=== PATIENT | female | born 1975 | race American Indian/Alaskan Native ===

== ENCOUNTER → 2017-08-09 | Emergency (ER) | payer BC, OTHER ==
[~2017-08-09] VITALS: Ht 157.5 cm; Wt 70.3 kg
[~2017-08-09] MED LIST: AUGMENTIN 875-1 EACH PO; CLONIDINE HCL0.2 MG PO; CYCLOBENZAPRINE10 MG PO; IBUPROFEN600 MG PO; NORCO 5-325 TA1 EACH PO; ONDANSETRON ODT8 MG PO; ROBAXIN-750750 MG PO; TRAZODONE HCL100 MG PO; TYLENOL WITH C1 EACH PO; ZOLOFT100 MG PO
== END ==
LOC: ED 17:58
DX: R51 Headache (principal); Z79.899 Other long term (current) drug therapy; Z88.1 Allergy status to other antibiotic agents; Z88.8 Allergy status to other drugs, medicaments and biological substances
CPT/HCPCS: 96361; 96374; 96375; 99283; J1200; J2765; J7030

== ENCOUNTER 2019-05-08 16:38 | Emergency (ER) | payer BC, OTHER ==
[~2019-05-08] VITALS: Ht 157.5 cm; Wt 70.3 kg
--- OUTSIDE RECORDS SUMMARY | 2019-05-08 16:42 | XMS ---
PreManage Notification: ZANE ROBB Security Telephone Lineman Events No recent Security Events currently on file CRITERIA MET - GWEND[facility] CARE PROVIDERS ZANE GIL Obstetrics \T\ Gynecology Current PHONE: Unknown DR DIMAS LESTER Primary Care Current PHONE: [phone] ZANE GIL Primary Care 09/19/2015-Current PHONE: [phone] Michelle has no Care Guidelines for this patient. E.D. VISIT COUNT (12 MO.) 1 DREW Barboza TOTAL 1 NOTE: Visits indicate total known visits. ED/UCC VISIT TRACKING (12 MO.) 05/08/2019 16:39 DREW L[facility]pez [place] TYPE: Emergency COMPLAINT: - HEADACHE, SINUS PAIN INPATIENT VISIT TRACKING (12 MO.) No inpatient visits to display in this time frame [email or web address]
[2019-05-08] MEDS ORDERED: ZOFRAN4 MG PO (17:16)
[2019-05-08] MEDS ORDERED: IMITREX50 MG PO (17:16)
[2019-05-08] MEDS ORDERED: AUGMENTIN 875-1 EACH PO (17:16)
[2019-05-08] MEDS ORDERED: ULTRAM50 MG PO (17:16)
== END 2019-05-08 18:10 | disposition home or self-care (01) ==
LOC: ED 16:38
DX: G43.909 Migraine, unspecified, not intractable, without status migrainosus (principal); F41.9 Anxiety disorder, unspecified; Z88.1 Allergy status to other antibiotic agents; Z88.6 Allergy status to analgesic agent
CPT/HCPCS: 99283

== ENCOUNTER 2020-04-18 19:36 | Emergency (ER) | payer BC, OTHER ==
[~2020-04-18] VITALS: Ht 157.5 cm; Wt 70.3 kg
--- OUTSIDE RECORDS SUMMARY | ~2020-04-18 | XMS | Encounter Summary ---
Demographics + + + | Address | [address] | | | [place] [address] | + + + | Home Phone | | + + + | Preferred Language | Unknown | + + + | Marital Status | | + + + | Yarsani Affiliation | 1041 | + + + | Race | Unknown | + + + | Ethnic Group | Unknown | + + + Author + + + | Author | [facility] | | | and [place] | + + + | Organization | [facility] | | | and [place] | + + + | Address | Unknown | + + + | Phone | Unavailable | + + + Support + + + + + | Name | Relationship | Address | Phone | + + + + + | Tai Darling | ECON | [address] | | | | | [place] | | | | | [address] | | + + + + + Care Team Providers + +------+ + | Care Rigging Engineer Name | Role | Phone | + +------+ + | Wayne Cunha DO | PCP | | + +------+ + Reason for Referral Evaluate & Treat (Routine) +--------+ + + + + + | Status | Reason | Specialty | Diagnoses / | Referred By | Referred To | | | | | Procedures | Contact | Contact | +--------+ + + + + + | Closed | Specialty | Orthopedic | Diagnoses | Delmer | Ant Srinivasan | | | Services | Surgery | Bilateral | Joshua Magaña MD | Orthopedic | | | Required | | carpal | [address] | | | | | tunnel | [address] | [address] | | | | | syndrome | [place], | [place], | | | | | Procedures | [place] [address] | [place] [address] | | | | | 05/24>PEND | Phone: | Phone: | | | | | [facility] AUTH | [phone] | [phone] | | | | | | Fax: | Fax: | | | | | | [phone] | [phone] | +--------+ + + + + + Reason for Visit + + + | Reason | Comments | + + + | Procedure | BUE NCS/EMG | + + + Evaluate & Treat (Routine) +--------+ + + + + + | Status | Reason | Specialty | Diagnoses / | Referred By | Referred To | | | | | Procedures | Contact | Contact | +--------+ + + + + + | Closed | Specialty | Physical | Diagnoses | Dowell, | Joshua Dowell | | | Services | Medicine and | Bilateral | Joshua Magaña MD | Josiane Magaña MD [address] | | | Required | Rehabilitatio | hand | [address] | | | | n | numbness | [address] | [place], | | | | | Pain in both | [place], | [place] [address] | | | | | forearms | [place] [address] | Phone: | | | | | Weakness of | Phone: | [phone] | | | | | both hands | [phone] | Fax: | | | | | Cervicalgia | Fax: | [phone] | | | | | Procedures | [phone] | | | | | | 05/02> | | | | | | | PENDING | | | | | | | [place] | | | | | | | DOS 05/03/18 | | | +--------+ + + + + + Encounter Details +--------+ + + + + | Date | Type | Department | Care Team | Description | +--------+ + + + + | 05/03/ | Procedure | [facility] | Joshua Dowell, | Bilateral carpal | | 2017 | visit | PHYSIATRY [address] | MD [address] | tunnel syndrome | | | | [address] | [place] | (Primary Dx); | | | | [place], [place] | [address] | Bilateral hand | | | | [address] | | numbness; Weakness | | | | [phone] | | of both hands; | | | | | | Cervicalgia | +--------+ + + + + Social History + +-------+ +--------+------+ | Tobacco Use | Types | Packs/Day | Years | Date | | | | | Used | | + +-------+ +--------+------+ | Never Assessed | | | | | + +-------+ +--------+------+ + + + | Sex Assigned at | Date Recorded | | | | + + + | Not on file | | + + + documented as of this encounter Last Filed Vital Signs + + + + + | Vital Sign | Reading | Time Taken | Comments | + + + + + | Blood Pressure | 112/67 | 05/03/2018 2:30 PM | | | | | PDT | | + + + + + | Pulse | 78 | 05/03/2018 2:30 PM | | | | | PDT | | + + + + + | Temperature | - | - | | + + + + + | Respiratory Rate | - | - | | + + + + + | Oxygen Saturation | - | - | | + + + + + | Inhaled Oxygen | - | - | | | Concentration | | | | + + + + + | Weight | 77.6 kg (171 lb) | 05/03/2018 2:30 PM | | | | | PDT | | + + + + + | Height | 157.5 cm (5' 2") | 05/03/2018 2:30 PM | | | | | PDT | | + + + + + | Body Mass Index | 31.28 | 05/03/2018 2:30 PM | | | | | PDT | | + + + + + documented in this encounter Patient Instructions Patient Instructions Joshua Dowell MD - 05/03/2018 2:30 PM PDTPurchase and wear carpal tunnel wrist splints. Wear them at night, only at night, every night, never during the day. Wear them until you are able to have surgical treatment. Laboratory tests have been requested. Please go to the lab to complete your laboratory gail ting. You will need to be fasting for 12 hours prior to lab testing. You will need to stay at the lab for 2 hours to complete your lab testing. Your lab results will be reviewed by phone. If you haven't heard your results within 2 weeks of completing the test, please call the office and let us know. Sequential carpal tunnel release surgery is recommended. Orthopedic surgery consult has be en requested. If you haven't heard from the surgeon's office within 2 weeks, please call e clinic and let us know. If you have persisting symptoms after you have recovered from carpal tunnel surgeries, plea se return to the clinic for further evaluation.Electronically signed by MD abhay Becerra 05/03/2018 3:43 PM PDT documented in this encounter Progress Notes Joshua Dowell MD - 05/03/2018 2:30 PM PDTFormatting of this note might be different fro m the original. [facility] Physical Medicine & Rehabilitation [address] [place] [address], [address] [place] [address] Test Date: 05/03/2018 Patient Name: Mary Jo Darling : 1975 Physician: Joshua Dowell MD (.) MR #: [id number] Sex: Female Referring Physician: Wayne Cunha DO HISTORY: Mary Jo Darling returns to the clinic for previously schedule bilateral upper extremity n erve conduction study and EMG. She has neck pain. She previously reported that symptoms we re worse on the left, but today she reports that her symptoms are worse on the right. She h as bilateral hand numbness and weakness that started around one year ago. She reports weak ness in both upper extremities which she describes as loss of exploration engineer strength. She reports bi lateral hand numbness that occurs at least daily but sometimes more than once daily. She re ports that hand numbness can occur at night and wake her from sleep. She reports that hand numbness can occur with activities that involve gripping with the hands. She denies a histo ry of diabetes. She denies having a pacemaker. She denies taking blood thinning medication s. PHYSICAL EXAM: Generally she is in no acute distress. She is alert and oriented. She has normal speech. Her cranial nerves are intact. Her gait is normal. She has normal coordination in all fou r extremities. She has 4/5 hand exploration engineer bilaterally. She has 5/5 biceps, triceps, wrist dorsi flexion, and finger abduction bilaterally. She has 2+ reflexes over the biceps, triceps and brachioradialis bilaterally. Tinel's test is positive over the median nerves at both wrist s. Phalen's test is positive bilaterally. Spurling's test is positive bilaterally. There is no focal muscle atrophy in either upper extremity. She has subjective sensory changes of the median distribution of both hands. Nerve Conduction Studies Anti Sensory Summary Table Site NR Peak (ms) Norm Peak (ms) O-P Amp (V) Norm O-P Amp Site1 Site2 Delta-0 (ms) Dist (cm) Kevin (m/s) Norm Kevin (m/s) Left Median Anti Sensory (2nd Digit) Wrist 3.7 <3.6 49.3 >10 Wrist 2nd Digit 3.0 14.0 47 >39 Axilla 7.3 14.5 Right Median Anti Sensory (2nd Digit) Wrist 3.5 <3.6 47.3 >10 Wrist 2nd Digit 2.9 14.0 48 >39 Elbow 7.0 14.6 Elbow Wrist 3.3 22.5 68 >48 Left Radial Anti Sensory (Base 1st Digit) Wrist 2.4 <2.7 40.8 Wrist Base 1st Digit 1.8 10.0 56 Right Radial Anti Sensory (Base 1st Digit) Wrist 2.5 <2.7 34.7 Wrist Base 1st Digit 2.0 10.0 50 Motor Summary Table Site NR Onset (ms) Norm Onset (ms) O-P Amp (mV) Norm O-P Amp Site1 Site2 Delta-0 (ms) Dist (cm) Kevin (m/s) Norm Kevin (m/s) Left Median Motor (Abd Poll Brev) Wrist 4.3 <4.2 10.2 >5 Elbow Wrist 3.5 19.5 56 >50 Elbow 7.8 9.4 Axilla Elbow 1.5 8.7 58 Axilla 9.3 9.2 Right Median Motor (Abd Poll Brev) Wrist 4.3 <4.2 7.0 >5 Elbow Wrist 3.6 19.0 53 >50 Elbow 7.9 5.4 Axilla Elbow 1.3 7.1 55 Axilla 9.2 5.7 Left Ulnar Motor (Abd Dig Minimi) Wrist 2.9 <4.2 10.8 >3 B Elbow Wrist 2.8 16.1 57 >53 B Elbow 5.7 9.8 A Elbow B Elbow 1.8 10.0 56 >53 A Elbow 7.5 10.3 Comparison Summary Table Site NR Peak (ms) Norm Peak (ms) P-T Amp (V) Site1 Site2 Delta-P (ms) Norm Delta (ms) Left Median/Radial Dig I Comparison (Digit 1 - 10cm) Median 3.0 <2.9 61.1 Median Radial 0.5 <0.4 Radial 2.5 <2.8 14.1 Right Median/Radial Dig I Comparison (Digit 1 - 10cm) Median 3.0 <2.9 54.5 Median Radial 0.6 <0.4 Radial 2.4 <2.8 12.9 Left Median/Ulnar Dig IV Comparison (Digit 4 - 14cm) Median Wr 4.0 <3.3 22.1 Median Wr Ulnar Wr 0.7 <0.4 Ulnar Wr 3.3 <3.3 21.4 Right Median/Ulnar Dig IV Comparison (Digit 4 - 14cm) Median Wr 3.8 <3.3 42.1 Median Wr Ulnar Wr 0.9 <0.4 Ulnar Wr 2.9 <3.3 21.8 Left Median/Ulnar Palm Comparison (Wrist - 8cm) Median Palm 2.6 <2.5 37.8 Median Palm Ulnar Palm 0.6 <0.3 Ulnar Palm 2.0 <2.5 18.1 Right Median/Ulnar Palm Comparison (Wrist - 8cm) Median Palm 2.7 <2.5 50.2 Median Palm Ulnar Palm 0.7 <0.3 Ulnar Palm 2.0 <2.5 23.0 F Wave Studies NR F-Lat (ms) Lat Norm (ms) L-R F-Lat (ms) L-R Lat Norm Left Median (Mrkrs) (Abd Poll Brev) 26.60 <33 0.94 <2.2 Right Median (Mrkrs) (Abd Poll Brev) 27.54 <33 0.94 <2.2 Left Ulnar (Mrkrs) (Abd Dig Min) 25.84 <36 <2.5 EMG Side Muscle Nerve Root Ins Act Fibs Psw Amp Dur Poly Recrt Int Pat Comment Right Deltoid Axillary C5-6 Nml Nml Nml Nml Nml Nml Nml Nml Right Biceps Musculocut C5-6 Nml Nml Nml Nml Nml Nml Nml Nml Right Triceps Radial C6-7-8 Nml Nml Nml Nml Nml Nml Nml Nml Right Anconeus Radial C7-8 Nml Nml Nml Nml Nml Nml Nml Nml Right PronatorTeres Median C6-7 Nml Nml Nml Nml Nml Nml Nml Nml Right 1stDorInt Ulnar C8-T1 Nml Nml Nml Nml Nml Nml Nml Nml Right Abd Poll Brev Median C8-T1 Nml Nml Nml Nml Nml Nml Nml Nml Left Deltoid Axillary C5-6 Nml Nml Nml Nml Nml Nml Nml Nml Left Biceps Musculocut C5-6 Nml Nml Nml Nml Nml Nml Nml Nml Left Triceps Radial C6-7-8 Nml Nml Nml Nml Nml Nml Nml Nml Left Anconeus Radial C7-8 Nml Nml Nml Nml Nml Nml Nml Nml Left PronatorTeres Median C6-7 Nml Nml Nml Nml Nml Nml Nml Nml Left 1stDorInt Ulnar C8-T1 Nml Nml Nml Nml Nml Nml Nml Nml Left Abd Poll Brev Median C8-T1 Nml Nml Nml Nml Nml Nml Nml Nml Nerve Conduction Studies Motor Left/Right Comparison Site L Lat (ms) R Lat (ms) L-R Lat (ms) L Amp (mV) R Amp (mV) L-R Amp (%) Site1 Site2 L Ve l (m/s) R Kevin (m/s) L-R Kevin (m/s) Median Motor (Abd Poll Brev) Wrist 4.3 4.3 0.0 10.2 7.0 31.4 Elbow Wrist 56 53 3 Elbow 7.8 7.9 0.1 9.4 5.4 42.6 Axilla Elbow 58 55 3 Axilla 9.3 9.2 0.1 9.2 5.7 38.0 Ulnar Motor (Abd Dig Minimi) Wrist 2.9 10.8 B Elbow Wrist 57 B Elbow 5.7 9.8 A Elbow B Elbow 56 A Elbow 7.5 10.3 Anti Sensory Left/Right Comparison Site L Lat (ms) R Lat (ms) L-R Lat (ms) L Amp (V) R Amp (V) L-R Amp (%) Site1 Site2 L Kevin (m/s) R Kevin (m/s) L-R Kevin (m/s) Median Anti Sensory (2nd Digit) Wrist 3.7 3.5 0.2 49.3 47.3 4.1 Wrist 2nd Digit 47 48 1 Axilla 7.3 14.5 Radial Anti Sensory (Base 1st Digit) Wrist 2.4 2.5 0.1 40.8 34.7 15.0 Wrist Base 1st Digit 56 50 6 Comparison Left/Right Comparison Site L Lat (ms) R Lat (ms) L-R Lat (ms) L Amp (V) R Amp (V) L-R Amp (%) Median/Radial Dig I Comparison (Digit 1 - 10cm) Median 3.0 3.0 0.0 61.1 54.5 10.8 Radial 2.5 2.4 0.1 14.1 12.9 8.5 Median/Ulnar Dig IV Comparison (Digit 4 - 14cm) Median Wr 4.0 3.8 0.2 22.1 42.1 47.5 Ulnar Wr 3.3 2.9 0.4 21.4 21.8 1.8 Median/Ulnar Palm Comparison (Wrist - 8cm) Median Palm 2.6 2.7 0.1 37.8 50.2 24.7 Ulnar Palm 2.0 2.0 0.0 18.1 23.0 21.3 NCV FINDINGS: Evaluation of the Left median motor and the Right median motor nerves showed prolonged distal onset latency. The Left median sensory nerve showed prolonged distal peak latency. The Left median/radial (dig I) comparison and the Right median/radial (dig I) comp arison nerves showed prolonged distal peak latency (Median) and abnormal peak latency differ ence (Median-Radial). The Left median/ulnar (dig IV) comparison and the Right median/ulnar (dig IV) comparison nerves showed prolonged distal peak latency (Median Wr) and abnormal pea k latency difference (Median Wr-Ulnar Wr). The Left median/ulnar (palm) comparison and the Right median/ulnar (palm) comparison nerves showed prolonged distal peak latency (Median Pal m) and abnormal peak latency difference (Median Palm-Ulnar Palm). All remaining nerves (as indicated in the following tables) were within normal limits. All F Wave latencies were within normal limits. EMG FINDINGS: All examined muscles (as indicated in the following table) showed no evidence of electrical instability. IMPRESSION: This is an abnormal study. Nerve conduction study of the right upper extremity is abnormal. Nerve conduction study of the right upper extremity demonstrates moderate median neuropathy at the right wrist consis tent with carpal tunnel syndrome. There is no evidence of radial neuropathy in the right up per extremity. Limited study does not reveal any evidence of ulnar neuropathy in the right upper extremity. Nerve conduction study of the left upper extremity is abnormal. Nerve conduction study of the left upper extremity demonstrates moderate median neuropathy at the left wrist consisten t with carpal tunnel syndrome. There is no evidence of radial neuropathy in the left upper e xtremity. There is no evidence of ulnar neuropathy in the left upper extremity. Needle EMG of both upper extremities was normal. There is no evidence of cervical radiculo jay in either upper extremity. Please note that absence of evidence is not proof of absence. Cervical radiculopathy may s till be present despite normal EMG study. Please note that nerve conduction study and EMG c annot diagnose nor rule out the presence of cervical spinals stenosis. DISCUSSION: Mary Jo Darling demonstrated normal tolerance to nerve conduction study and EMG. She was able to complete the entire exam. As noted above, this study demonstrates moderate median neuropathy at both wrists consisten t with bilateral carpal tunnel syndrome. Numerically the carpal tunnel syndrome may be slig htly worse on the right compared to the left. Mary Jo Darling was recommended to wear carpal tunnel wrist splints at night, only night, every night, never during the day. She was instructed how to make sure the splints fit pro perly and are not too tight. We discussed that splints will not correct her problem, but ma y offer some improvement and may slow the natural progression of carpal tunnel syndrome. Sequential bilateral carpal tunnel release is recommended. Orthopedic surgery consult has been requested to consider carpal tunnel release surgery. Today we reviewed the natural progression of carpal tunnel syndrome. We discussed the risk of permanent nerve damage if carpal tunnel syndrome is left untreated. We discussed the ri sk of permanent pain, numbness, weakness and disability that can occur if carpal tunnel prog ressive to severe. Today we reviewed the association between carpal tunnel syndrome and diabetes. 2 hour gluc ose tolerance test has been requested. The results will be reviewed by her with phone. There was no evidence of cervical pathology on today's study. She was advised that if she has persisting symptoms after treating carpal tunnel syndrome, she should return to the clin ic for further evaluation. Thank you for allowing me to be involved in the care of your patient. If you have any ques tions regarding the care of your patient please don't hesitate to call. Approximately 25 minutes was spent face to face with Mary Jo Darling, over half of which was spent formulating and discussing their medical treatment plan. Joshua Dowell MD (Jr.) Physical Medicine and Rehabilitation Cc: Wayne Cunha DO documented in this en counter Plan of Treatment + +------+--------+ + + | Name | Type | Priori | Associated Diagnoses | Order Schedule | | | | ty | | | + +------+--------+ + + | Glucose Tolerance | Lab | Routin | Bilateral carpal | 1 Occurrences | | Test, 2Hr | | e | tunnel syndrome | starting 05/03/2018 | | | | | | until 05/03/2019 | + +------+--------+ + + + + +--------+ + + | Name | Type | Priori | Associated Diagnoses | Order Schedule | | | | ty | | | + + +--------+ + + | * [facility] | Outpatient | Routin | Bilateral carpal | Ordered: 05/03/2018 | | Orthopedic Surgery - | Referral | e | tunnel syndrome | | | AMB Referral | | | | | + + +--------+ + + documented as of this encounter Visit Diagnoses + + | Diagnosis | + + | Bilateral carpal tunnel syndrome - Primary Carpal tunnel syndrome | + + | Bilateral hand numbness Disturbance of skin sensation | + + | Weakness of both hands | + + | Cervicalgia | + + documented in this encounter
--- OUTSIDE RECORDS SUMMARY | ~2020-04-18 | XMS | Encounter Summary ---
Demographics + + + | Address | [address] | | | [place] [address] | + + + | Home Phone | | + + + | Preferred Language | Unknown | + + + | Marital Status | | + + + | Orthodox Affiliation | 1041 | + + + | Race | Unknown | + + + | Ethnic Group | Unknown | + + + Author + + + | Author | [facility] | | | and [place] | + + + | Organization | [facility] | | | and [place] | + + + | Address | Unknown | + + + | Phone | Unavailable | + + + Support + + + + + | Name | Relationship | Address | Phone | + + + + + | Tai Darling | ECON | [address] | | | | | [place] | | | | | [address] | | + + + + + Care Team Providers + +------+ + | Care Sewing Machinist Name | Role | Phone | + +------+ + | Latricia Pal | PCP | | + +------+ + Reason for Visit +--------+--------+ + | Reason | Onset | Comments | | | Date | | +--------+--------+ + | Other | 09/24/ | | | | 2020 | | +--------+--------+ + Encounter Details +--------+ + + + + | Date | Type | Department | Care Team | Description | +--------+ + + + + | 09/24/ | Telephone | [facility] | Jose Alejandro Raymundo | Other | | 2020 | | ORTHOPEDIC SURGERY | MD [address] | | | | | [address] | [address] [facility] | | | | | [place] | [place] [address] | | | | | [address] | [phone] | | | | | [phone] | | | +--------+ + + + + Social History + +-------+ +--------+------+ | Tobacco Use | Types | Packs/Day | Years | Date | | | | | Used | | + +-------+ +--------+------+ | Never Smoker | | | | | + +-------+ +--------+------+ + +---+---+---+ | Smokeless Tobacco: | | | | | Never Used | | | | + +---+---+---+ + + + | Sex Assigned at | Date Recorded | | | | + + + | Not on file | | + + + documented as of this encounter Miscellaneous Notes Telephone Encounter - Anu Christianson I U.[place]. Representative - 09/25/2019 10:16 AM PSTCorrec fredi letter has been faxed to [phone] ATTRosy [place]. I have placed the letter up front fo r patient to steel pickler for her records at the time of her Pre-Op visit. elephone Encounter - Anu Mackenzie I U.[place]. Representative - 09/24/2019 3:54 PM PSTPlease correct. Thanks! Nicki sow signed by Yashira Ivan Assistant at 09/24/2019 3:55 PM PSTTelephone Lizzie Jamison - 09/24/2019 2:29 PM PSTPatient called and needs a corrected note . Note received stated that she is having her pre op appt. 09/24/18. Her schedule appt is 0 09/26/2019. If you could correct this and fax to [phone] that would be appreciated.Max tronically signed by Lizzie Winters at 09/24/2019 2:32 PM PSTdocumented in this encounter Plan of Treatment Not on filedocumented as of this encounter Visit Diagnoses Not on filedocumented in this encounter"
--- OUTSIDE RECORDS SUMMARY | ~2020-04-18 | XMS | Encounter Summary ---
Demographics + + + | Address | [address] | | | [place] [address] | + + + | Home Phone | | + + + | Preferred Language | Unknown | + + + | Marital Status | | + + + | Sikhism Affiliation | 1041 | + + + | Race | Unknown | + + + | Ethnic Group | Unknown | + + + Author + + + | Author | [facility] | | | and [place] | + + + | Organization | [facility] | | | and [place] | + + + | Address | Unknown | + + + | Phone | Unavailable | + + + Support + + + + + | Name | Relationship | Address | Phone | + + + + + | Tai Darling | ECON | [address] | | | | | [place] | | | | | [address] | | + + + + + Care Team Providers + +------+ + | Care Blackjack Supervisor Name | Role | Phone | + +------+ + | Wayne Cunha DO | PCP | | + +------+ + Encounter Details +--------+ + + + + | Date | Type | Department | Care Team | Description | +--------+ + + + + | 05/18/ | Orders Only | [facility] | Jose [facility]andro [facility] | Bilateral carpal | | 2018 | | ORTHOPEDIC SURGERY | MD [address] | tunnel syndrome | | | | [address] | [address] | (Primary Dx) | | | | [place] | [place] [address] | | | | | [address] | [phone] | | | | | [phone] | | | +--------+ + + + [...] + + documented as of this encounter Plan of Treatment Not on filedocumented as of this encounter Visit Diagnoses + + | Diagnosis | + + | Bilateral carpal tunnel syndrome - Primary Carpal tunnel syndrome | + + documented in this encounter"
--- OUTSIDE RECORDS SUMMARY | ~2020-04-18 | XMS | Encounter Summary ---
Demographics + + + | Address | [address] | | | [place] [address] | + + + | Home Phone | | + + + | Preferred Language | Unknown | + + + | Marital Status | | + + + | Zoroastrianism Affiliation | 1041 | + + + | Race | Unknown | + + + | Ethnic Group | Unknown | + + + Author + + + | Author | [facility] | | | and [place] | + + + | Organization | [facility] | | | and [place] | + + + | Address | Unknown | + + + | Phone | Unavailable | + + + Support + + + + + | Name | Relationship | Address | Phone | + + + + + | Tai Darling | ECON | [address] | | | | | [place] | | | | | [address] | | + + + + + Care Team Providers + +------+ + | Care Chha Name | Role | Phone | + +------+ + | Wayne Cunha DO | PCP | | + +------+ + Encounter Details +--------+ + + + + | Date | Type | Department | Care Team | Description | +--------+ + + + + | 02/16/ | Abstract | [facility] | Joshua Dowell, | | | 2018 | | PHYSIATRY [address] | MD [address] | | | | | [address] | [place], [place] | | | | | [place], [place] | [address] | | | | | [address] | | | | | | [phone] | | | +--------+ + + + [...]
--- OUTSIDE RECORDS SUMMARY | ~2020-04-18 | XMS | Encounter Summary ---
Demographics + + + | Address | [address] | | | [place] [address] | + + + | Home Phone | | + + + | Preferred Language | Unknown | + + + | Marital Status | | + + + | Scientologist Affiliation | 1041 | + + + | Race | Unknown | + + + | Ethnic Group | Unknown | + + + Author + + + | Author | [facility] | | | and [place] | + + + | Organization | [facility] | | | and [place] | + + + | Address | Unknown | + + + | Phone | Unavailable | + + + Support + + + + + | Name | Relationship | Address | Phone | + + + + + | Tai Darling | ECON | [address] | | | | | [place] | | | | | [address] | | + + + + + Care Team Providers + +------+ + | Care [employer] Name | Role | Phone | + +------+ + | Wayne Cunha PCP | | + +------+ + Reason for Visit +---------+ + | Reason | Comments | +---------+ + | Post Op | RIGHT CARPAL TUNNEL RELEASE DOS 07/11/2018 | +---------+ + Encounter Details +--------+---------+ + + + | Date | Type | Department | Care Team | Description | +--------+---------+ + + + | 07/25/ | Office | [facility] | Jose Alejandro Raymundo | s/p right open | | 2018 | Visit | ORTHOPEDIC SURGERY | MD [address] | carpal tunnel | | | | [address] | [address] | release DOS 07/11/18 | | | | [address] | [place] [address] | (Primary Dx) | | | | [address] | [phone] | | | | | [phone] | | | +--------+---------+ + + + Social History + +-------+ [...] + + + | Blood Pressure | - | - | | + + + + + | Pulse | - | - | | + [...] + + + + | Weight | 79.4 kg (175 lb 0.7 | 07/25/2018 10:51 AM | | | | oz) | PST | | + + + + + | Height | 157.5 cm (5' 2") | 07/25/2018 10:51 AM | | | | | PST | | + + + + + | Body Mass Index | 32.02 | 07/25/2018 10:51 AM | | | | | PST | | + + + + + documented in this encounter Patient Instructions Patient Instructions Jose Alejandro Raymundo MD - 07/25/2018 11:00 AM PST Carpal Tunnel Syndrome Carpal tunnel syndrome is a painful condition of the wrist and arm. It is caused by pressur e on the median nerve. The median nerve is one of the nerves that give feeling and movement to the hand. It passes through a tunnel in the wrist called the carpal tunnel. This tunnel is made up of bones and ligaments. Narrowing of this tunnel or swelling of the tissues inside the tunnel puts press ure on the median nerve. This causes numbness, pins and needles, or electric shooting pains in your hand and forearm. Often the pain is worse at night and may wake you when you are asl eep. Carpal tunnel syndrome may occur during and with use of control pills. It i s more common in workers who must often bend their wrists. It is also common in people who w ork with power tools that cause strong vibrations. Home care Rest the painful wrist. Avoid repeated bending of the wrist back and forth. This puts pr essure on the median nerve. Avoid using power tools with strong vibrations. If you were given a splint, wear it at night while you sleep. You may also wear it durin g the day for comfort. Move your fingers and wrists often to avoid stiffness. Elevate your arms on pillows when you lie down. Try using the unaffected hand more. Try not to hold your wrists in a bent, downward position. Sometimes changes in the work place may ease symptoms. If you type most of the day, it m ay help to change the position of your keyboard or add a wrist support. Your wrist should be in a neutral position and not bent back when typing. You may nrpyydq-suc-wjlldag pain medicine to treat pain and inflammation, unless anoth er medicine was prescribed.Anti-inflammatory pain medicines, such as ibuprofen or naproxen may be more effective than acetaminophen, which treats pain, but not inflammation.If you have chronic liver or kidney disease or ever had a stomach ulcer or GI bleeding, talk with y our doctor before using these medicines. Opioid pain medicine will only give temporary relief and does not treat the problem. If pain continues, you may need a shot of a steroid drug into your wrist. If the above methods fail, you may need surgery. This will open the carpal tunnel and re lease the pressure on the trapped nerve. Follow-up care Follow up with your healthcare provider, oras advised, if the pain doesn t begin to imp rove within the next week. If X-rays were taken,you will be notified of any new findings that may affect your care. When to seek medical advice Call your healthcare provider right away if any of these occur: Pain not improving with the above treatment Fingers or hand become cold, blue, numb, or tingly Your whole arm becomes swollen or weak Date Last Reviewed: 08/11/201519995764-5180 [employer]. [address] [place] [id number]. All righ ts reserved. This information is not intended as a substitute for professional medical care. Always follow your healthcare professional's instructions. documented in this encounter Progress Notes Jose Alejandro Raymundo MD - 07/25/2018 11:00 AM PSTFormatting of this note might be different fro m the original. [facility] POST-OPERATIVE VISIT Pt. Name/Age/: Mary Jo Darling 42 y.o. 1975 Primary Care Physician: Wayne Cunha 1. s/p right open carpal tunnel release DOS 07/11/18 Chief Complaint/Reason for Visit: Post Op (RIGHT CARPAL TUNNEL RELEASE DOS 07/11/2018) History of Present Illness: The patient is a pleasant 42 y.o. female who presents for a post-operative visit. Since the surgery, the patient has been doing well. She has not been using her right hand. She want s to get back to work. Physical Examination: Ht 1.575 m (5' 2") | Wt 79.4 kg (175 lb 0.7 oz) | BMI 32.02 kg/m General: Alert, oriented, no acute distress HEENT: Normocephalic, atraumatic Cardiovascular: Regular rate and rhythm Respiratory: Breathing normally at a regular rate Ortho Exam Right upper extremity: Radial pulse 2+. Sensation intact to light touch in the first dorsal webspace, and the pads of the small and index fingers. Able to flex and extend the thumb at the interphalangeal joe int, make an "ok" sign, adduct and abduct the fingers, and oppose the thumb to the small fin jorge. Incision is clean, dry, and intact. Diagnostic Studies: Imaging None Labs- No results found for: NA, K, CL, CO2, ANIONGAP, GLU, BUN, CREA, GFRNONAA, CALCIUM, ALBUMIN, BILITOT, TOTALPROTEIN, AST, ALT, ALKPHOS, WBC, HGB, HCT, MCV, LABPLAT, PLT, ESR, CRP, LIPAS E, AMYLASE, PT, INR Assessment and Plan: 1. s/p right open carpal tunnel release DOS 07/11/18 The patient is a pleasant 42 y.o. female who presents for a post-operative visit after the above surgery. At this point, I did is reasonable for her to return back to work. She needs to do this with a 2 pound lifting restriction. She may type as tolerated. I encouraged he r to not soak the wound for another few days. She'll wash her hands to clean it. I'll see her back in 4 weeks. She would like to do the left side after the first of the year. She d oes not have constant numbness and tingling.. Follow-up: 4 weeks with no x-ray Portions of this report were transcribed using voice recognition software. Every effort wa s made to ensure accuracy; however, inadvertent computerized steel plate printer errors may be pre sent. I appreciate the opportunity to help with the management of this patient. Jose Alejandro Raymundo MD documented in this en counter Plan of Treatment Not on filedocumented as of this encounter Visit Diagnoses + + | Diagnosis | + + | s/p right open carpal tunnel release DOS 07/11/18 - Primary Carpal tunnel syndrome | + + documented in this encounter
--- OUTSIDE RECORDS SUMMARY | ~2020-04-18 | XMS | Encounter Summary ---
Demographics + + + | Address | [address] | | | [place] [address] | + + + | Home Phone | | + + + | Preferred Language | Unknown | + + + | Marital Status | | + + + | Mormonism Affiliation | [id number] | + + + | Race | Unknown | + + + | Ethnic Group | Unknown | + + + Author + + + | Author | and [facility] | | | and [place] | + + + | Organization | and [facility] | | | and [place] | + + + | Address | Unknown | + + + | Phone | Unavailable | + + + Support + + + + + | Name | Relationship | Address | Phone | + + + + + | Tai Robb | ECON | [address] | | | | | [place] | | | | | [address] | | + + + + + Care Team Providers + +------+ + | Care Senior Talent Management Consultant Name | Role | Phone | + +------+ + | Latricia Pal | PCP | | + +------+ + Reason for Visit Auth/Cert +--------+--------+ + + + + | Status | Reason | Specialty | Diagnoses / | Referred By | Referred To | | | | | Procedures | Contact | Contact | +--------+--------+ + + + + | | | | Diagnoses | | Breanne | | | | | Sindi justice | | Jose Alejandro | | | | | tunnel | | MD Brendan | | | | | syndrome | | [address] | | | | | Procedures | | [address] | | | | | [place] | | [place] | | | | | [place] | | [address] | | | | | N/CARPAL | | Phone: | | | | | TUNNEL SURG | | [phone] | | | | | Left carpal | | Fax: | | | | | tunnel | | [phone] | | | | | release | | | +--------+--------+ + + + + Encounter Details +--------+ + + + + | Date | Type | Department | Care Team | Description | +--------+ + + + + | 10/03/ | Hospital | [facility] | Jose Alejandro Raymundo | Left carpal tunnel | | 2020 | Encounter | [facility] | MD Brendan [address] | syndrome | | | | [address] | [address] [facility] | | | | | [place] | [place] [id number] | | | | | [id number] | [phone] | | | | | | | | +--------+ + + + [...] | | | + +---+---+---+ + + +---------+ + | Alcohol Use | Drinks/Week | oz/Week | Comments | + + +---------+ + | Not Currently | | | | + + +---------+ + + + + | Sex Assigned at | Date Recorded | | | | + + + | Not on file | | + + + documented as of this encounter Last Filed Vital Signs + + + + + | Vital Sign | Reading | Time Taken | Comments | + + + + + | Blood Pressure | 105/61 | 10/03/2019 1:45 PM | | | | | PST | | + + + + + | Pulse | 77 | 10/03/2019 1:45 PM | | | | | PST | | + + + + + | Temperature | 36.9 C (98.4 F) | 10/03/2019 1:14 PM | | | | | PST | | + + + + + | Respiratory Rate | 16 | 10/03/2019 1:45 PM | | | | | PST | | + + + + + | Oxygen Saturation | 94% | 10/03/2019 1:45 PM | | | | | PST | | + + + + + | Inhaled Oxygen | - | - | | | Concentration | | | | + + + + + | Weight | 79.8 kg (175 lb 14.8 | 10/03/2019 10:34 AM | | | | oz) | PST | | + + + + + | Height | 157.5 cm (5' 2") | 10/03/2019 10:34 AM | | | | | PST | | + + + + + | Body Mass Index | 32.18 | 10/03/2019 10:34 AM | | | | | PST | | + + + + + documented in this encounter Discharge Summaries Jose Alejandro Raymundo MD - 10/03/2019 3:28 PM PSTFormatting of this note might be dif ferent from the original. DISCHARGE SUMMARY Pt. Name/Age/: Mary Jo Robb 43 y.o. 1975 Date of Admission: 10/03/2019 Date of Discharge: 10/03/2019 Admitting Physician: Jose Alejandro tSahl* PCP: Latricia Pal Discharging Physician: Jose Alejandro Raymundo MD Consultants: None Primary Discharge Dx: Left carpal tunnel Patient Active Problem List Diagnosis s/p right open carpal tunnel release DOS 07/11/18 Left carpal tunnel syndrome JANE (generalized anxiety disorder) Secondary Discharge Dx: Pertinent Diagnostic Info/Data: Procedures: Left carpal tunnel release Reason for Admission (Brief): The patient was brought to the hospital for an outpatient pr ocedure. Hospital Course, including Complications: The patient tolerated the procedure well. There were no complications. Once the patient met criteria for discharge home, the patient was dis charged. Medications Reconciled upon Discharge are: Discharge Medications New Medications Details HYDROcodone-acetaminophen 5-325 mg per tablet Take 1-2 tablets by mouth every 4 hours as needed for Pain. aka: NORCO Unchanged Medications Details ALPRAZolam 0.5 mg tablet Take 0.5 mg by mouth as needed for Anxiety. aka: XANAX cyclobenzaprine 10 mg tablet aka: FLEXERIL ibuprofen 600 MG tablet Take 400-600 mg by mouth Daily as needed for Pain. aka: ADVIL,MOTRIN ondansetron 8 mg disintegrating tablet aka: ZOFRAN ODT SUMAtriptan 50 mg tablet take 1 tablet by mouth if needed for headache aka: IMITREX traZODone 100 mg tablet Take 100 mg by mouth nightly as needed for Insomnia. aka: DESYREL valACYclovir 500 mg tablet Take 500 mg by mouth as needed. aka: VALTREX Discontinued Medications TYLENOL PO There is no immunization history on file for this patient. Reason for major medication changes in hospital: Post-operative pain Condition on Discharge: Stable Vital Signs: Temp: 36.9 C (98.4 F) BP: 105/61 Pulse: 77 Resp: 16 SpO2: 94 % Min/Max Temp past 24 hours:Temp Av.8 C (98.3 F) Min: 36.8 C (98.2 F) Max: 3 6.9 C (98.4 F) Intake/Output Summary (Last 24 hours) at 10/03/2019 1528 Last data filed at 10/03/2019 1403 Gross per 24 hour Intake 1500 ml Output Net 1500 ml Last Wt. Before discharge: Weight: 79.8 kg (175 lb 14.8 oz) Pending study results on DC: None Disposition: Home Follow-Up Plans: Follow-up with: Dr. Raymundo in 2 weeks Diet: Regular Activity: Discharge instructions: - Activity: Work on moving your fingers. Do not try to move your wrist. No lifting with you r hand. - Dressings: Please keep the dressing clean, dry and in place for the next 3-4 days. You ma y remove the dressing after that time and wash and dry the hand gently, but please keep it c overed with a dressing until I see you back in clinic for suture removal. You have sutures u nderneath the dressing which will come out at your post-operative visit about 2 weeks after surgery. - Diet: Please resume your usual diet. - Follow up: You will have a follow-up appointment in about 2 weeks. Please call [phone] with any questions or concerns. - Please seek medical attention for any of the following: Temperature 101.4 degrees Fahrenh eit, pain uncontrolled by medication, drainage or foul odor from incision, increasing bruisi ng or discoloration, chest pain, shortness of breath, nausea, vomiting, or any other symptom s, numbness or abnormal color in your extremities - FOR YOUR SAFETY: Remember the prescription medicine given during your surgery and for lili n may affect your balance and ability to make decisions. After being discharged from the [facility], remember not to do the following: drive a car, operate machinery or power tools, drin k alcohol, make important decisions, or do anything alone that requires balance or coordinat ion (i.e., walking alone to the bathroom, and walking up and down stairs) - It is expected that you your pain will gradually improve and that you will need less pres cription pain medications as time goes by, please wean yourself gradually from the prescript ion pain medication. -Work on elevating your hand. Keeping it at or above the level of your heart will help you control post-operative swelling. -You may ice the hand. Please place a towel or other cloth between the dressing and the pratt d to keep the dressing and incision from getting wet. The patient's narcotic history for the least year was checked using the [place] Prescrip tion Monitoring Program. Decision was made to prescribe narcotics due to the patient's acute pain. No discharge procedures on file. Electronically signed by: Jose Alejandro Raymundo MD, 10/03/2019 3:28 PM [facility] documented in this encounter Discharge Instructions Instructions Svetlana Frederick RN - 10/02/2019Discharge instructions: - Activity: Work on moving your fingers. Do not try to move your wrist. No lifting with you r hand. - Dressings: Please keep the dressing clean, dry and in place for the next 3-4 days. You ma y remove the dressing after that time and wash and dry the hand gently, but please keep it c overed with a dressing until I see you back in clinic for suture removal. You have sutures u nderneath the dressing which will come out at your post-operative visit about 2 weeks after surgery. - Diet: Please resume your usual diet. - Follow up: You will have a follow-up appointment in about 2 weeks. Please call with any questions or concerns. - Please seek medical attention for any of the following: Temperature 101.4 degrees Fahrenh eit, pain uncontrolled by medication, drainage or foul odor from incision, increasing bruisi ng or discoloration, chest pain, shortness of breath, nausea, vomiting, or any other symptom s, numbness or abnormal color in your extremities - FOR YOUR SAFETY: Remember the prescription medicine given during your surgery and for lili n may affect your balance and ability to make decisions. After being discharged from the [facility], remember not to do the following: drive a car, operate machinery or power tools, drin k alcohol, make important decisions, or do anything alone that requires balance or coordinat ion (i.e., walking alone to the bathroom, and walking up and down stairs) - It is expected that you your pain will gradually improve and that you will need less pres cription pain medications as time goes by, please wean yourself gradually from the prescript ion pain medication. -Work on elevating your hand. Keeping it at or above the level of your heart will help you control post-operative swelling. -You may ice the hand. Please place a towel or other cloth between the dressing and the pratt d to keep the dressing and incision from getting wet. Recovery After Procedural Sedation (Adult) You have been given medicine by vein to make you sleep during your procedure. This may have included both a pain medicine and sleeping medicine. Most of the effects have worn off. But you may still have some drowsiness for the next 6 to 8 hours. Home care Follow these guidelines when you get home: For the next 8 hours, you should be watched by a responsible adult. This person should m kenya sure your condition is not getting worse. Don't drink any alcoholfor the next [address]. [address], operate dangerous machinery,make important business or personal decisions , or sign legal documentsduring the next 24 hours. Note: Your healthcare provider may tell you not to take any medicine by mouth for pain or s leep in the next 4 hours. These medicines may react with the medicines you were given in the hospital. This could cause a much stronger response than usual. Follow-up care Follow up with your healthcare provider if you are not alert and back to your usual level o f activity within 12 hours. When to seek medical advice Call your healthcare provider right away if any of these occur: Drowsiness gets worse Weakness or dizziness gets worse Repeated vomiting You can't be awakened Date Last Reviewed: 07/06/201619998727-6161 [employer]. [address] [place] [address], [place] [address]. All righ ts reserved. This information is not intended as a substitute for professional medical care. Always follow your healthcare professional's instructions. documented in this encounter Medications at Time of Discharge + + + +---------+ + + | Medication | Sig | Dispensed | Refills | Start | End Date | | | | | | Date | | + + + +---------+ + + | ALPRAZolam (XANAX) | Take 0.5 mg by mouth | | 0 | 04/21/20 | | | 0.5 mg tablet | as needed for | | | 18 | | | | Anxiety. | | | | | + + + +---------+ + + | cyclobenzaprine | | | 0 | 08/30/20 | | | (FLEXERIL) 10 mg | | | | 19 | | | tablet | | | | | | + + + +---------+ + + | ibuprofen | Take 400-600 mg by | | 0 | | | | (ADVIL,MOTRIN) 600 | mouth Daily as | | | | | | MG tablet | needed for Pain. | | | | | + + + +---------+ + + | ondansetron | | | 0 | 05/15/20 | | | (ZOFRAN ODT) 8 mg | | | | 19 | | | disintegrating | | | | | | | tablet | | | | | | + + + +---------+ + + | SUMAtriptan | take 1 tablet by | | 0 | 08/20/20 | | | (IMITREX) 50 mg | mouth if needed for | | | 19 | | | tablet | headache | | | | | + + + +---------+ + + | traZODone | Take 100 mg by mouth | | 0 | | | | (DESYREL) 100 mg | nightly as needed | | | | | | tablet | for Insomnia. | | | | | + + + +---------+ + + | valACYclovir | Take 500 mg by mouth | | 0 | 05/10/20 | | | (VALTREX) 500 mg | as needed. | | | 18 | | | tablet | | | | | | + + + +---------+ + + | | Take 1-2 tablets by | 20 | 0 | 10/03/19 | | | HYDROcodone-acetamin | mouth every 4 hours | tablet | | 20 | 0 | | ophen (NORCO) 5-325 | as needed for Pain. | | | | | | mg per tablet | | | | | | + + + +---------+ + + documented as of this encounter H&P Notes Jose Alejandro Raymundo MD - 10/03/2019 12:15 PM PSTSURGICAL INTERIM HISTORY & PHYSICAL UPDATE Pt. Name/Age/: Mary Jo Robb 43 y.o. 1975 Date of admission: 10/03/2019 The current H&P was reviewed. The patient was reexamined. Re-evaluation of the patient co nfirms the necessity for the scheduled procedure. No change has occurred in the patient s condition since the H&P was completed less than 30 days ago. VERIFICATION OF CONSENT (PARQ) The patient was counseled regarding the procedure, its indications, risks, potential compli cations and alternatives. Any questions were answered. Consent was obtained. Electronically signed by: Jose Alejandro Raymundo MD, 10/03/2019 12:15 PM [facility] - 09/26/2019 1:30 PM PST and [facility] PRE-OPERATIVE VISIT Pt. Name/Age/: Mary Jo Robb 43 y.o. 1975 Primary Care Physician: Latricia Pal Chief Complaint/Reason for Visit: Pre-op Exam (left carpal tunnel release dos 10/03/2019) History of Present Illness: The patient is a pleasant 43 y.o. female who presents for a pre-operative visit prior to a left carpal tunnel release. The patient reports that she continues to have intermittent num bness and tingling. It has been bothering her significantly at work. She previously underw ent a right carpal tunnel release last year and tolerated that well. She has no questions p rior to surgery.. Past Medical History: Past Medical History: Diagnosis Date Acute low back pain Adjustment disorder with mixed emotional features Anxiety Concussion with no loss of consciousness Dysuria JANE (generalized anxiety disorder) Genital herpes simplex Joint pain Migraine Sinusitis URI (upper respiratory infection) Vitamin D deficiency Past Surgical History: Procedure Laterality Date CARPAL TUNNEL RELEASE Right 07/11/2018 Procedure: RELEASE CARPAL TUNNEL-RIGHT; Surgeon: Jose Alejandro Raymundo MD; Location: [facility] MAIN OR SECTION GALLBLADDER SURGERY removed when she was 18 TONSILLECTOMY Allergies: Allergies Allergen Reactions Cephalexin Other (See Comments) and Nausea And Vomiting Reaction not specified in outside medical records Naprosyn [Naproxen] Other (See Comments) Reaction not specified in outside medical records Sulfamethoxazole-Trimethoprim Other (See Comments) Reaction not specified in outside medical records Current Medications: Current Outpatient Medications Medication Sig Dispense Refill ALPRAZolam (XANAX) 0.5 mg tablet Take 0.5 mg by mouth as needed for Anxiety. cyclobenzaprine (FLEXERIL) 10 mg tablet ibuprofen (ADVIL,MOTRIN) 600 MG tablet Take 400-600 mg by mouth Daily as needed for Lili n. ondansetron (ZOFRAN ODT) 8 mg disintegrating tablet SUMAtriptan (IMITREX) 50 mg tablet take 1 tablet by mouth if needed for headache 0 traZODone (DESYREL) 100 mg tablet Take 100 mg by mouth nightly as needed for Insomnia. valACYclovir (VALTREX) 500 mg tablet Take 500 mg by mouth as needed. No current facility-administered medications for this visit. Family History: Family History Problem Relation Age of Onset Diabetes Mother High blood pressure Mother Diabetes Father High blood pressure Father Rheum arthritis Neg Hx Social History: Social History Socioeconomic History Marital status: Spouse name: RE ROBB Number of children: Not on file Years of education: Not on file Highest education level: Not on file Occupational History Employer: [employer] Social Needs Financial resource strain: Not on file Food insecurity: Worry: Not on file Inability: Not on file Transportation needs: Medical: Not on file Non-medical: Not on file Tobacco Use Smoking status: Never Smoker Smokeless tobacco: Never Used Substance and Sexual Activity Alcohol use: Not on file Drug use: Not on file Sexual activity: Not on file Lifestyle Physical activity: Days per week: Not on file Minutes per session: Not on file Stress: Not on file Relationships Social connections: Talks on phone: Not on file Gets together: Not on file Attends pentecostal service: Not on file Active member of club or organization: Not on file Attends meetings of clubs or organizations: Not on file Relationship status: Not on file Intimate partner violence: Fear of current or ex partner: Not on file Emotionally abused: Not on file Physically abused: Not on file Forced sexual activity: Not on file Other Topics Concern Not on file Social History Narrative Not on file Review of Systems All of these are negative unless otherwise marked Eyes: [] Double vision [] Glasses/contacts [] Failing vision Respiratory: [] Asthma/Wheezing [] Pneumonia [] Night sweats [] Shortness of breath [] Chronic cough [] Coughing up blood [] Exposure to tuberculosis Cardiovascular: [] Heart Problems [] Hypertension [] Heart murmur [] Palpitations [] Rheumatic fever [] Phlebitis [] Chest pain [] Ankle swelling [] Leg cramps [] Racin g heart [] Skipping beats [] Blood clots Urinary Tract: [] Painful urination []Kidney Stones []Any urine leakage []Weak urine stream [] Night urination []Urine infections [] Bedwetting [] Blood in urine Ear/Nose/Throat: [] Frequent Colds [] Sinus Disease [] Nose obstruction [] Sneezing Spells [] Change in taste [] Artificial teeth [] Ears ringing [] Ear pain [] Hearing loss [] Teeth problems [] Hoarseness [] Neck swelling [] Sore throat [] Congestion [] Nosebleeds [] Nasal allergies Gastrointestinal: [] Abdominal pain [x] Heartburn [] Blood from rectum [] Colitis [] Gallbladder problems [] Troubl e swallowing [x] Bloated stomach [x] Change in stools [] Vomiting blood [] Nausea [x] Hemorrhoids [] Jaundice [] Hepatitis [] Diarrhea [x] Constipation [] Diverticulitis Musculoskeletal: [] Physical handicaps [] Back or shoulder pain []Rheumatoid disease [] Osteoarthritis [] Joint pain [] Joint swelling []Gout [] Leg cramps at night Skin: [x] Skin rashes [] Itching/Burning [] Skin bruises easi ly [] Artificial tanning [] Skin cancer [] Hair loss [] Changes in moles Psychiatric: [] Depression [] Suicidal thoughts [] Sleep pattern changes [] Appetite changes [] Recent counseling [x] Nervousness/anxiety [] Physical violence [] Marital problems Neurological: [] Headaches [] Seizures [] Stroke/TIA [] Faintness [] Tremors [] Numbness [] Dizziness [] Changes in handwriting [] Memory loss [] Shooting pains Endocrine: [] Thyroid [] Diabetes Systemic: []Weight loss/gain (over 10 lbs) []Fever/chills []Fatigue [x] Sleeping Difficulties [] Speech change [] Voice change Admission Weight: Weight: 80.1 kg (176 lb 9.4 oz) BMI: Body mass index is 32.3 kg/m . Physical Examination: BP 120/79 | Pulse 84 | Temp 36.6 C (97.9 F) (Temporal) | Resp 16 | Ht 1.575 m (5' 2 ") | Wt 80.1 kg (176 lb 9.4 oz) | SpO2 98% | BMI 32.30 kg/m General: Alert, oriented, no acute distress HEENT: Normocephalic, atraumatic Cardiovascular: Regular rate and rhythm Respiratory: Breathing normally at a regular rate Ortho Exam Left upper extremity: Radial pulse 2+. Sensation intact to light touch in the first dorsal webspace, and the pads of the small and index fingers. Able to flex and extend the thumb at the interphalangeal joe int, make an "ok" sign, adduct and abduct the fingers, and oppose the thumb to the small fin jorge. Positive Tinel's at the carpal and cubital tunnels. Negative elbow flexion test. Positive Israel's compression test. Diagnostic Studies: Imaging Labs- No results found for: NA, K, CL, CO2, ANIONGAP, GLU, BUN, CREA, GFRNONAA, CALCIUM, ALBUMIN, BILITOT, TOTALPROTEIN, AST, ALT, ALKPHOS, WBC, HGB, HCT, MCV, LABPLAT, PLT, ESR, CRP, LIPAS E, AMYLASE, PT, INR Assessment and Plan: No diagnosis found. The patient is a pleasant 43 y.o. female who presents for a pre-operative visit regarding h er upcoming left carpal tunnel release. Treatment options were discussed with the patient in cluding non-operative treatment modalities. Considering the nature of the patient's conditio n, decision was made to proceed with surgery. Risks, benefits and alternatives to surgery we re discussed. The patient agreed to proceed with surgery. Special risks to the procedure inc lude flexion, pillar pain, incisional pain, loss of plumbing manager strength for period of time, and ne rve injury and these were discussed with the patient. All of the patient's questions were an swered Discharge Planning: Outpatient Follow-up: 2 weeks after surgery with no x-ray Portions of this report were transcribed using voice recognition software. Every effort wa s made to ensure accuracy; however, inadvertent computerized jackscrew man errors may be pre sent. I appreciate the opportunity to help with the management of this patient. Jose Alejandro Raymundo MD documented in this encounter Miscellaneous Notes Op Note - Jose Alejandro Raymundo MD - 10/03/2019 3:27 PM PSTNAME: Mary Jo Robb DATE OF : 1975 DATE OF SERVICE: 10/03/2019 PREOPERATIVE DIAGNOSIS: Left Carpal Tunnel Syndrome POSTOPERATIVE DIAGNOSIS: Same OPERATION PERFORMED: Left Carpal Tunnel Release SURGEON: Jose Alejandro Raymundo MD PRISON CLASSIFICATION COUNSELOR: None ANESTHESIA: Conscious sedation with local ESTIMATED BLOOD LOSS: 5 mL TOURNIQUET TIME: 11 minutes at 250 mmHg. DRAINS: None. CULTURES: None. SPECIMENS: None. COMPLICATIONS: None. OPERATIVE FINDINGS: Consistent with diagnosis IMPLANTS: None INDICATIONS: Mary Jo Robb is a 43 y.o. female who presents with a history of Left ca rpal tunnel syndrome. The patient states that she benefited from her carpal tunnel release l ast year. She had similar symptoms on the left-hand side. She wished to proceed with surge ry. DESCRIPTION OF PROCEDURE: Mary Jo was seen in the Preoperative Holding Area. The patient's Left wrist was marked in the standard fashion. All of the patient's questions were answered at that time. Anesthesia evaluated the patient Following this, the patient was taken back to the Operatin g Room and we placed a hand table was placed next to the patient. The patient was then admin istered sedation by the Anesthesia Team. 20 mL of 1% lidocaine with epinephrine were used to block the carpal tunnel and anesthesize the skin along the carpal tunnel. The patient was then prepped and draped in the standard, sterile fashion. A 4 centimeter in cision was made in line with the 3rd webspace space starting at Alston's line and going prox imally almost to the wrist crease. Sharp dissection was carried down through the skin and pa lmar fascia. Retraction was used to expose the transverse carpal ligament. This was dissecte d with a 15 blade until the nerve could be seen. At that point, scissors were used to incise the transverse carpal ligament to the fat pad of the palm. Dissection was than carried prox imally. The forearm fascia was released where it was visible. The transverse carpal ligament was seen to retract. The nerve was seen and felt to be decompressed. We then irrigated the wound thoroughly. 4-0 nylon was used to close the skin in an interrupted, vertical mattress fashion. Xeroform, 4x4s, Mirela, and an RAVI were placed on the hand. Of note, the patient got a little bit emotional with anesthesia. The patient was then taken to the Post Anesthesia Care Unit in stable condition. POSTOPERATIVE INSTRUCTIONS: Discharge instructions: - Activity: Work on moving your fingers. Do not try to move your wrist. No lifting with you r hand. - Dressings: Please keep the dressing clean, dry and in place for the next 3-4 days. You ma y remove the dressing after that time and wash and dry the hand gently, but please keep it c overed with a dressing until I see you back in clinic for suture removal. You have sutures u nderneath the dressing which will come out at your post-operative visit about 2 weeks after surgery. - Diet: Please resume your usual diet. - Follow up: You will have a follow-up appointment in about 2 weeks. Please call with any questions or concerns. - Please seek medical attention for any of the following: Temperature 101.4 degrees Fahrenh eit, pain uncontrolled by medication, drainage or foul odor from incision, increasing bruisi ng or discoloration, chest pain, shortness of breath, nausea, vomiting, or any other symptom s, numbness or abnormal color in your extremities - FOR YOUR SAFETY: Remember the prescription medicine given during your surgery and for lili n may affect your balance and ability to make decisions. After being discharged from the [facility], remember not to do the following: drive a car, operate machinery or power tools, drin k alcohol, make important decisions, or do anything alone that requires balance or coordinat ion (i.e., walking alone to the bathroom, and walking up and down stairs) - It is expected that you your pain will gradually improve and that you will need less pres cription pain medications as time goes by, please wean yourself gradually from the prescript ion pain medication. -Work on elevating your hand. Keeping it at or above the level of your heart will help you control post-operative swelling. -You may ice the hand. Please place a towel or other cloth between the dressing and the pratt d to keep the dressing and incision from getting wet. documented in this encounter Plan of Treatment Not on filedocumented as of this encounter Procedures + +--------+ + + + | Procedure Name | Priori | Date/Time | Associated Diagnosis | Comments | | | ty | | | | + +--------+ + + + | RELEASE CARPAL | | 10/03/2019 | Left carpal tunnel | | | TUNNEL | | 12:40 PM | syndrome | | | | | PST | | | + +--------+ + + + | POCT TEST, | Routin | 10/03/2019 | | Results for this | | URINE, QUAL | e | 11:20 AM | | procedure are in the | | | | PST | | results section. | + +--------+ + + + documented in this encounter Results POCT Test, Urine, QUAL (10/03/2019 11:20 AM PST) + + + + + + | Component | Value | Ref Range | Performed | Pathologist | | | | | At | Signature | + + + + + + | | Negative | Negative | | | | Test, | | | | | | Urine, POC | | | | | + + + + + + | Internal QC | Acceptable | Acceptable | | | + + + + + + | Specific | | | | | | [place], | | | | | | POC | | | | | + + + + + + | Lot Number | [id number] | | | | + + + + + + | Expiration | [id number] | | | | | Date | | | | | + + + + + + + + | Specimen | + + | Urine | + + documented in this encounter Visit Diagnoses + + | Diagnosis | + + | Left carpal tunnel syndrome - Primary Carpal tunnel syndrome | + + documented in this encounter Admitting Diagnoses + + | Diagnosis | + + | Left carpal tunnel syndrome Carpal tunnel syndrome | + + documented in this encounter Administered Medications + +--------+ + +------+------+ | Medication Order | MAR | Action | Dose | Rate | Site | | | Action | Date | | | | + +--------+ + +------+------+ | acetaminophen (TYLENOL) tablet | Given | 10/03/19 | 1,000 mg | | | | 1,000 mg 1,000 mg, Oral, SEE | | 20 10:46 | | | | | ADMIN INSTRUCTIONS, Starting Wed | | AM PST | | | | | 10/03/19 at 1035, For 1 dose, | | | | | | | Nursing to give 60 minutes before | | | | | | | time of surgery, Pre-op | | | | | | + +--------+ + +------+------+ + +---+ | | | + +---+ | albuterol 2.5 mg/3 mL nebulizer | | | solution 2.5 mg 2.5 mg, | | | Nebulization, ONCE PRN, Wheezing, | | | Starting 10/03/19 at 1318, | | | For 1 dose, Notify anesthesia if | | | patient is wheezing and does not | | | have a history of asthma or COPD | | | or current smoking., | | | Post-op/Phase II | | + +---+ | | | + +---+ | atropine 0.1 mg/mL syringe 0.5 | | | mg 0.5 mg, Intravenous, PRN, | | | Bradycardia, For HR < 40, | | | Starting 10/03/19 at 1318, For | | | 2 doses, May repeat one time | | | after 1 min., Post-op/Phase II | | + +---+ | | | + +---+ | dextrose 50% injection 12.5-25 | | | g 12.5-25 g, Intravenous, EVERY | | | 15 MIN PRN, Low Blood Sugar, Give | | | 12.5g (25 mL) IV if blood | | | glucose 50-69 mg/dL. Give 25g | | | (50 mL) IV if blood glucose < 50, | | | Starting 10/03/19 at 1035, | | | Repeat in 15 min if blood glucose | | | remains < 70 mg/dL. Repeat | | | blood glucose in 30 min once | | | blood glucose > 70., Pre-op | | + +---+ | | | + +---+ | dextrose 50% injection 12.5-25 | | | g 12.5-25 g, Intravenous, EVERY | | | 15 MIN PRN, Low Blood Sugar, For | | | hypoglycemia. Give 12.5g (25ml) | | | IV if blood glucose 50-69 | | | mg/dL. Give 25g (50ml) IV if | | | blood glucose < 50, Starting Wed | | | 10/03/19 at 1318, Give over 2 min. | | | Repeat in 15 min if blood | | | glucose remains < 70 mg/dL. | | | Repeat blood glucose in 30 min | | | once blood glucose > 70., | | | Post-op/Phase II | | + +---+ | | | + +---+ | ePHEDrine (AKOVAZ) 50 mg/mL | | | injection 5 mg 5 mg, | | | Intravenous, EVERY 5 MIN PRN, if | | | SBP <90., Starting Tue10/03/19 at | | | 1318, Hold if HR > 100. Maximum | | | total dose 20mg., Post-op/Phase | | | II | | + +---+ | | | + +---+ | fentaNYL (PF) injection 12.5-50 | | | mcg 12.5-50 mcg, Intravenous, | | | EVERY 5 MIN PRN, Pain, Starting | | | Tue10/03/19 at 1318, First dose | | | must be lowest dose, can increase | | | subsequent doses by 12.5mcg | | | within dosing range. If patient | | | received previous higher PACU | | | dose or meets opioid tolerant | | | definition, can start with 25mcg | | | dose and increase subsequent | | | doses by 25mcg within dosing | | | range. [Maximum total PACU dose | | | 200mcg] Use Pasero Sedation | | | Scale. [Opioid tolerant = One | | | week or longer, [id number] | | | use of at least the following | | | DAILY dose: 60mg oral morphine, | | | 60mg oral hydrocodone, 30mg oral | | | oxycodone, 8mg oral | | | hydromorphone, fentanyl patch | | | 25mcg/hr, or equivalent dose of | | | another opioid], Post-op/Phase II | | + +---+ | | | + +---+ | HYDROcodone-acetaminophen | | | (NORCO) 5-325 mg per tablet 1-2 | | | tablet 1-2 tablet, Oral, EVERY 4 | | | HOURS PRN, Pain, Starting Wed | | | 10/03/19 at 1318, If ineffective | | | use [place] 10/325 if ordered. If | | | not tolerated, use Percocet then | | | Oxycodone if ordered., | | | Post-op/Phase II | | + +---+ | | | + +---+ + + + +---+---+---+ | lactated ringers (LR) infusion | Continue | 10/03/19 | | | | | at 10-100 mL/hr, Intravenous, | d by | 20 12:41 | | | | | CONTINUOUS, Starting 10/03/19 | Anesthes | PM PST | | | | | at 1100, TKO., Pre-op | ia | | | | | + + + +---+---+---+ +---------+ +--------+-------+---+ | New Bag | 10/03/19 | 1,000 | 100 | | | | 20 10:47 | mLs | mL/hr | | | | AM PST | | | | +---------+ +--------+-------+---+ + +---+ | | | + +---+ | meperidine (DEMEROL) injection | | | 12.5-25 mg 12.5-25 mg, | | | Intravenous, PRN, Shivering, | | | Starting 10/03/19 at 1318, For | | | 2 doses, May Repeat once in 5 | | | min., Post-op/Phase II | | + +---+ | | | + +---+ | midazolam (VERSED) 1 mg/mL | | | injection 0.5-2 mg 0.5-2 mg, | | | Intravenous, EVERY 5 MIN PRN, | | | Anxiety, or agitation, Starting | | | 10/03/19 at 1318, Maximum | | | total dose 2 mg., Post-op/Phase | | | II | | + +---+ | | | + +---+ | ondansetron (ZOFRAN ODT) | | | disintegrating tablet 4 mg 4 mg, | | | Oral, EVERY 6 HOURS PRN, Nausea, | | | Vomiting, Starting 10/03/19 | | | at 1318, First line agent, | | | Post-op/Phase II | | + +---+ | | | + +---+ | ondansetron (ZOFRAN) injection | | | 4 mg 4 mg, Intravenous, EVERY 4 | | | HOURS PRN, Nausea, Vomiting, | | | Starting 10/03/19 at 1318, | | | Post-op/Phase II | | + +---+ | | | + +---+ documented in this encounter
--- OUTSIDE RECORDS SUMMARY | ~2020-04-18 | XMS | Encounter Summary ---
Demographics + + + | Address | [address] | | | [place] [address] | + + + | Home Phone | | + + + | Preferred Language | Unknown | + + + | Marital Status | | + + + | Judaism Affiliation | 1041 | + + + | Race | Unknown | + + + | Ethnic Group | Unknown | + + + Author + + + | Author | [facility] | | | and [place] | + + + | Organization | [facility] | | | and [place] | + + + | Address | Unknown | + + + | Phone | Unavailable | + + + Support + + + + + | Name | Relationship | Address | Phone | + + + + + | Tai Robb | ECON | [address] | | | | | [place] | | | | | [address] | | + + + + + Care Team Providers + +------+ + | Care Project Director Name | Role | Phone | + [...] | Specialty | Physical | Diagnoses | Comfort Dowell, Joshua | | | Services | Medicine and | Bilateral | Joshua Magaña MD | Josiane Magaña MD [address] | | | Required | Rehabilitatio | hand | [address] | | | | n | numbness | [address] | [place], | | | | | Pain in both | [place], | [place] [address] | | | | | forearms | [place] [address] | Phone: | | | | | Weakness of | Phone: | [phone] | | | | | both hands | [phone] | Fax: | | | | | Cervicalgia | Fax: | [phone] | | | | | Procedures | [phone] | | | | | | 05/02> | | | | | | | PENDING | | | | | | | [place] | | | | | | | DOS 05/03/18 | | | +--------+ + + + + + Reason for Visit + + + | Reason | Comments | + + + | Numbness | | + + + | Arm Pain | | + + + | Wrist Pain | | + + + | Weakness | | + + + Evaluate & Treat (Routine) +--------+--------+ + + + + | Status | Reason | Specialty | Diagnoses / | Referred By | Referred To | | | | | Procedures | Contact | Contact | +--------+--------+ + + + + | Closed | | Physical | Diagnoses | [facility], | Joshua Dowell | | | | Medicine and | Bilateral | Wayne M DO | Josiane Magaña MD [address] | | | | Rehabilitatio | arm pain | [address] | | | | n | Carpal | [address] | [place], | | | | | tunnel | [place], | [place] [address] | | | | | syndrome | [place] [address] | Phone: | | | | | | Phone: | [phone] | | | | | | [phone] | Fax: | | | | | | Fax: | [phone] | | | | | | [phone] | | +--------+--------+ + + + + Encounter Details +--------+---------+ + + + | Date | Type | Department | Care Team | Description | +--------+---------+ + + + | 02/21/ | Office | [facility] | Joshua Dowell, | Bilateral hand | | 2018 | Visit | PHYSIATRY [address] | MD [address] | numbness (Primary | | | | [address] | [place] | Dx); Pain in both | | | | [place] | [address] | forearms; Weakness | | | | [address] | | of both hands; | | | | [phone] | | Cervicalgia | +--------+---------+ + + + Social History [...] this encounter Last Filed Vital Signs + +---------+ + + | Vital Sign | Reading | Time Taken | Comments | + +---------+ + + | Blood Pressure | 122/87 | 02/21/2018 2:59 PM | | | | | PDT | | + +---------+ + + | Pulse | 69 | 02/21/2018 2:59 PM | | | | | PDT | | + +---------+ + + | Temperature | - | - | | + +---------+ + + | Respiratory Rate | - | - | | + +---------+ + + | Oxygen Saturation | - | - | | + +---------+ + + | Inhaled Oxygen | - | - | | | Concentration | | | | + +---------+ + + | Weight | - | - | | + +---------+ + + | Height | - | - | | + +---------+ + + | Body Mass Index | - | - | | + +---------+ + + documented in this encounter Patient Instructions Patient Instructions Sade Calderon RN - 02/21/2018 2:00 PM PDTPurchase and wear "night time carpal tunnel wrist splints". Wear them at night, only at night, every night, never du ring waking hours. Make sure they are not too tight. They only need to prevent the wrists from bending during sleep. X-rays have been requested. Please go to the x-ray department after your appointment to co mplete these x-rays. The results of your x-rays will be reviewed at your next appointment. If your x-rays demonstrate any emergent results, the clinic will contact you. Please attend your scheduled nerve conduction study and EMG appointment. Nerve conduction studies and EMG require a great deal of time to complete. If you will be unable to make your appointment please contact the clinic at least one full business day aly or to your appointment . Missed appoints without cancellation will only be re scheduled once. Children under the age of 13 are not permitted in the room during the nerve study. If acco mpanied by children under the age of 13, they will need an adult to supervise them, while th ey wait in the lobby. Prior to your appointment wash the skin with soap and water. This is to remove any of the natural oils on the skin which may interfere with the completion of the study. Please do not wear any lotion prior to the study as lotion may also interfere with the comp letion of the study. When attending your study please bring appropriate attire. If you are having a study of th e upper extremities please bring a short sleeve shirt to wear during the study. If you are having a study of the lower extremities please bring shorts to wear during the study. At the time of your study, please remind the physician if you are taking any blood thinning medications such as Coumadin, or heparin. At the time of your study, please remind the physician if you have an implanted electronic device such as a pacemaker. documented in this encounter Progress Notes Joshua Dowell MD - 02/21/2018 2:00 PM PDTFormatting of this note might be different fro m the original. Physical Medicine & Rehabilitation Consult Referring Provider: Wayne Cunha DO Date of Service: 02/21/18 Patient ID: Mary Jo Robb is a 42 y.o. female with bilateral hand numbness, worse on th e left. HPI Mary Jo Robb reports that she started having numbness in the both upper extremities, a pproximately one year ago. Her symptoms have been unchanged overtime. She reports neck pain. She rate her neck pain as 0 on a numerical pain scale. Her upper extremity numbness is intermittent, occurring about several times per day, lastin g minutes with each episode. Her upper extremity numbness is strongest over the first and second fingers of right hand a nd left 1st finger. Her upper extremity numbness is exacerbated by: typing, sleep, driving, all activity and g ripping. Her upper extremity numbness is reduced by: application of heat and streching Her numbness does wake her from sleep. Mary Jo Robb reports weakness. She describe her upper extremity weakness as "loss of sports development officer." She denies dropping objects. She reports that she has a loss of confidence in carrying obj ects and using tools such an axe. Mary Jo Robb denies taking blood thinning medications such as Coumadin or heparin. She denies having implanted electronic device such as a pacemaker. She denies a history of diabetes. She denies a history of thyroid disease. She denies a history of rheumatoid arthritis. She denies a history of chemical exposure. She denies a history of frequent alcohol consumption. Mary Jo Robb reports that they have not had previous nerve conduction study. Past Medical History Past Medical History: Diagnosis Date Acute low back pain Adjustment disorder with mixed emotional features Anxiety Concussion with no loss of consciousness Dysuria JANE (generalized anxiety disorder) Genital herpes simplex Joint pain Migraine Sinusitis URI (upper respiratory infection) Vitamin D deficiency Past Surgical History No past surgical history on file. Family History: Family History Problem Relation Age of Onset Rheum arthritis Neg Hx Social History: Social History Social History Marital status: Spouse name: RE ROBB Number of children: N/A Years of education: N/A Occupational History [employer] Social History Main Topics Smoking status: Not on file Smokeless tobacco: Not on file Alcohol use Not on file Drug use: Unknown Sexual activity: Not on file Other Topics Concern Not on file Social History Narrative No narrative on file Allergies: Allergies Allergen Reactions Acetaminophen Other (See Comments) Reaction not specified in outside medical records Cephalexin Other (See Comments) Reaction not specified in outside medical records Naproxen Other (See Comments) Reaction not specified in outside medical records Sulfamethoxazole-Trimethoprim Other (See Comments) Reaction not specified in outside medical records Medications: Outpatient Encounter Prescriptions as of 02/21/2018 Medication Sig Dispense Refill [DISCONTINUED] diazePAM (VALIUM) 5 mg tablet Take 5 mg by mouth every 48 hours as neede d for Anxiety. ibuprofen (ADVIL,MOTRIN) 600 MG tablet Take 600 mg by mouth. rizatriptan (MAXALT-DRIVING INSTRUCTOR) 10 mg disintegrating tablet traZODone (DESYREL) 100 mg tablet Take 200-300 mg by mouth nightly as needed for Insomn ia. No facility-administered encounter medications on file as of 02/21/2018. Review of Systems:Review of Systems Constitutional: Negative for chills, diaphoresis, fever, malaise/fatigue and weight loss. HENT: Negative for congestion, ear discharge, ear pain, hearing loss, nosebleeds, sinus sheila n, sore throat and tinnitus. Eyes: Positive for blurred vision. Negative for double vision, photophobia, pain, discharge and redness. Dry eyes Respiratory: Negative for cough, hemoptysis, sputum production, shortness of breath, wheezi ng and stridor. Cardiovascular: Negative for chest pain, palpitations, orthopnea, claudication, leg swellin g and PND. Gastrointestinal: Negative for abdominal pain, blood in stool, constipation, diarrhea, hear tburn, melena, nausea and vomiting. Genitourinary: Negative for dysuria, flank pain, frequency, hematuria and urgency. Musculoskeletal: Negative for back pain, falls, joint pain, myalgias and neck pain. Skin: Negative for itching and rash. Neurological: Positive for tingling, weakness and headaches. Negative for dizziness, tremor s, sensory change, speech change, focal weakness, seizures and loss of consciousness. Endo/Heme/Allergies: Negative for environmental allergies and polydipsia. Does not bruise/b leed easily. Psychiatric/Behavioral: Positive for depression. Negative for hallucinations, memory loss, substance abuse and suicidal ideas. The patient is nervous/anxious and has insomnia. Vitals: 02/21/18 1459 BP: 122/87 Pulse: 69 Objective Physical Exam: General Appearance: Alert and Oriented to person, place, time and situation, no distress. HEENT: PERRL, conjunctiva clear, no scleral icterus, EOM's intact Neck: Reverse Spurling's positive for right hand symptoms. Spurling's test positive on th e right. Reverse Spurling's positive on the left. Increased tone in cervical paraspinal musc les bilaterally. Heart: Regular Rate and Rhythm Lungs: No audible wheezing or crackles. Abdomen: Non-distended Back: Symmetric Extremities: No clubbing, cyanosis or edema in all four extremities Neurological: Cranial Nerves: Intact Speech: Normal Sensory: Intact to light touch and monofilament in upper extremities. Possible increased du llness over fifth digits bilaterally Motor: Normal 5/5 strength in both upper extremities including biceps, triceps, wrist dorsiflexion , finger abduction. Right 4-/5 and left 4/5 hand sports development officer. Normal 5/5 strength in both lower extremities with ankle dorsiflexion Reflexes: 1+ normal and symmetric over the biceps and brachioradialis of both upper extremities. 2+ normal and symmetric over the patella of both lower extremities. Coordination: Intact with finger to nose testing in both upper extremities. Intact with heal to bryan slide in both lower extremities Tinel's test positive over the median nerve at both wrists. Tinel's test positive over the ulnar nerve at left elbow. Tinel's test negative over the ulnar nerve at right elbow. Database: No available imaging for review. Assessment 1. Bilateral hand numbness 2. Pain in both forearms 3. Weakness of both hands 4. Cervicalgia Plan 1. The differential diagnosis for Mary Jo Robb's symptoms included, but are not limit ed to: carpal tunnel syndrome, cervical radiculopathy, cubital tunnel syndrome, brachial ple xopathy, and pronator teres syndrome. Mary Jo Robb's clinical presentation is most con sistent with carpal tunnel syndrome. 2. Today we reviewed that the nerve study will hopefully help us localize the origin of sym ptoms. We discussed that if carpal tunnel syndrome is discovered, that the nerve study can help determine if the carpal tunnel syndrome is mild, moderate or severe. We discussed that if carpal tunnel is mild the treatments tend to be conservative such as antiinflammatories, hand therapy, wrist splints and sometimes steroid injection. We discussed that moderate an d severe carpal tunnel syndrome generally require surgical release. We discussed that with severe carpal tunnel syndrome there may be permanent damage to the nerve that does not resol ve despite adequate surgical release. We discussed natural progress of carpal tunnel syndro me. We reviewed that carpal tunnel if left untreated, tends to get progressively worse over time. We discussed that if severe carpal tunnel syndrome is left untreated that the amount of permanent nerve damage can get worse leading to worse disability. Today we discussed how to prepare for nerve conduction study and EMG. We discussed not wea ring lotion and bringing a short sleeve shirt to wear. We discussed the process of the test , which involves small shocks to the nerves and that the study may include pin sticks, witho ut shock into the muscles. 3.Purchase and wear carpal tunnel wrist splints. Wear them at night, only at night, every night, never during waking hours. Make sure they are not too tight. They only need to prev ent the wrists from bending during sleep. 4. We dicussed that it only takes approximately 30 minutes of pressure on a nerve to cause nerve damage, but may take approximately 6 months of proper alignment and no pressure on the nerve to allow for healing. 5.Today we dicussed possible risk factors and correlating diagnosis associated with carpal tunnel. We dicussed that an individual with diabetes is approximately 6 times more likely to develop carpal tunnel. If completed NCS demonstrates carpal tunnel syndrome will likely co nsider having diagnostic diabetic testing with a 2 hour glucose. 6. Mary Jo Robb will complete a cervical x-ray to evaluate for degenerative changes as sociated with her symptoms. 7. Mary Jo Robb will return to the clinic for a bilateral upper extremity nerve cond uction study and EMG to evaluate for the differential diagnosis above. She will need detail ed study of left upper extremity where her symptoms are worse. We will likely screen for ca rpal tunnel syndrome in the right upper extremity. She should likely have bilateral upper e xtremity EMG because of possible radiculopathy (positve spurling's on exam). Thank you for allowing me to be involved in the care of your patient. If you have any ques tions regarding the care of your patient please don't hesitate to call. Approximately 45 minutes was spent face to face with Mary Jo Robb, over half of which was spent formulating and discussing their medical treatment plan. I, Joshua Dowell MD personally performed the services described in this documentation, as scribed by in my presence, Sade Calderon RN and are both accurate and complete. Joshua Dowell MD - 02/21/2018 Joshua Dowell MD - 02/21/2018 Cc: Wayne Cunha DO documented in this en counter Plan of Treatment + +---------+--------+ + + | Name | Type | Priori | Associated Diagnoses | Order Schedule | | | | ty | | | + +---------+--------+ + + | XR Cervical Spine 4 | Imaging | Routin | Bilateral hand | Expected: | | or 5 Vws | | e | numbness Pain in | 02/21/2018, Expires: | | | | | both forearms | 02/21/2019 | | | | | Weakness of both | | | | | | hands Cervicalgia | | + +---------+--------+ + + + + +--------+ + + | Name | Type | Priori | Associated Diagnoses | Order Schedule | | | | ty | | | + + +--------+ + + | * [facility] [place] | Outpatient | Routin | Bilateral hand | Ordered: 02/21/2018 | | Physiatry - AMB | Referral | e | numbness Pain in | | | Referral | | | both forearms | | | | | | Weakness of both | | | | | | hands Cervicalgia | | + + +--------+ + + documented as of this encounter Procedures + +--------+ + + + | Procedure Name | Priori | Date/Time | Associated Diagnosis | Comments | | | ty | | | | + +--------+ + + + | LABS - EXTERNAL SCAN | | 05/12/2018 | | Results for this | | | | 12:00 AM | | procedure are in the | | | | PDT | | results section. | + +--------+ + + + documented in this encounter Results LABS - EXTERNAL SCAN (05/12/2018 12:00 AM PDT) + + + | Narrative | Performed At | + + + | Ordered by an | | | unspecified provider. | | + + + documented in this encounter Visit Diagnoses + + | Diagnosis | + + | Bilateral hand numbness - Primary Disturbance of skin sensation | + + | Pain in both forearms Pain in limb | + + | Weakness of both hands | + + | Cervicalgia | + + documented in this encounter
--- OUTSIDE RECORDS SUMMARY | ~2020-04-18 | XMS | Encounter Summary ---
Demographics + + + | Address | [address] | | | [place] [address] | + + + | Home Phone | | + + + | Preferred Language | Unknown | + + + | Marital Status | | + + + | Sabianist Affiliation | 1041 | + + + | Race | Unknown | + + + | Ethnic Group | Unknown | + + + Author + + + | Author | [facility] | | | and [place] | + + + | Organization | [facility] | | | and [place] | + + + | Address | Unknown | + + + | Phone | Unavailable | + + + Support + + + + + | Name | Relationship | Address | Phone | + + + + + | Tai Robb | ECON | [address] | | | | | [place] | | | | | [address] | | + + + + + Care Team Providers + +------+ + | Care Gas Technician Name | Role | Phone | + [...] | | | | Diagnoses | | | | | | | Bilateral | | | | | | | carpal | | | | | | | tunnel | | | | | | | syndrome | | | | | | | (G56.03) | | | | | | | Procedures | | | | | | | [place] [facility] | | | | | | | MEDIAN | | | | | | | N/CARPAL | | | | | | | TUNNEL SURG | | | | | | | RELEASE | | | | | | | CARPAL | | | | | | | TUNNEL-RIGHT | | | +--------+--------+ + + + + Encounter Details +--------+ + + + + | Date | Type | Department | Care Team | Description | +--------+ + + + + | 07/11/ | Hospital | [facility] | Jose Alejandro Raymundo | Right carpal tunnel | | 2018 | Encounter | MED CTR [facility] OP | [address] | syndrome | | | | [address] | [address] | | | | | [place] | [place] [address] | | | | | [address] | [phone] | | | | | [phone] | | | +--------+ + + + [...] + + + | Blood Pressure | 104/65 | 07/11/2018 5:00 PM | | | | | PDT | | + + + + + | Pulse | 75 | 07/11/2018 5:00 PM | | | | | PDT | | + + + + + | Temperature | 36.6 C (97.9 F) | 07/11/2018 4:40 PM | | | | | PDT | | + + + + + | Respiratory Rate | 16 | 07/11/2018 5:00 PM | | | | | PDT | | + + + + + | Oxygen Saturation | 96% | 07/11/2018 5:00 PM | | | | | PDT | | + + + + + | Inhaled Oxygen | - | - | | | Concentration | | | | + + + + + | Weight | 79.4 kg (175 lb 0.7 | 07/11/2018 12:17 PM | | | | oz) | PDT | | + + + + + | Height | 157.5 cm (5' 2") | 07/11/2018 12:17 PM | | | | | PDT | | + + + + + | Body Mass Index | 32.02 | 07/11/2018 12:17 PM | | | | | PDT | | + + + + + documented in this encounter Discharge Summaries Jose Alejandro Raymundo MD - 07/11/2018 5:14 PM PDTFormatting of this note might be different fro m the original. DISCHARGE SUMMARY Pt. Name/Age/: Mary Jo Robb 42 y.o. 1975 Date of Admission: 07/11/2018 Date of Discharge: 07/11/2018 Admitting Physician: Jose Alejandro Raymundo MD PCP: Wayne Cunha Discharging Physician: Jose Alejandro Raymundo Consultants: None Primary Discharge Dx: Right carpal tunnel syndrome Patient Active Problem List Diagnosis Right carpal tunnel syndrome Left carpal tunnel syndrome JANE (generalized anxiety disorder) Secondary Discharge Dx: None Pertinent Diagnostic Info/Data: None Procedures: Right open carpal tunnel release Reason for Admission (Brief): [...] mouth as needed for Anxiety. aka: XANAX ibuprofen 600 MG tablet Take 400-600 mg by mouth Daily as needed for Pain. aka: ADVIL,MOTRIN rizatriptan 10 mg disintegrating tablet Take by mouth as needed for Migraine. aka: MAXALT-CEMENT SACK BREAKER traZODone 100 mg tablet Take 100 mg by mouth nightly as needed for Insomnia. aka: DESYREL valACYclovir 500 mg tablet Take 500 mg by mouth as needed. aka: VALTREX Discontinued Medications traMADol 50 mg tablet aka: ULTRAM There is no immunization history on file for this patient. Reason for major medication changes in hospital: Post-operative pain Condition on Discharge: Stable Vital Signs: Temp: 36.6 C (97.9 F) BP: 104/65 Pulse: 75 Resp: 16 SpO2: 96 % Min/Max Temp past 24 hours:Temp Av.6 C (97.8 F) Min: 36.5 C (97.7 F) Max: 3 6.6 C (97.9 F) Intake/Output Summary (Last 24 hours) at 07/11/18 1714 Last data filed at 07/11/18 1645 Gross per 24 hour Intake 525 ml Output 5 ml Net 520 ml Last Wt. Before discharge: Weight: 79.4 kg (175 lb 0.7 oz) Pending study results on DC: None Disposition: Home Follow-Up Plans: Follow-up with: Dr. Raymundo in 2 weeks Diet: Regular Activity: No lifting >2 lbs. Work on finger motion. Ice and elevate the wrist. No discharge procedures on file. Electronically signed by: Jose Alejandro Raymundo, 07/11/2018 17:14 [facility] documented in this en counter Discharge Instructions Instructions Jose Alejandro Raymundo MD - 07/10/2018Discharge instructions: - Activity: Work on moving your fingers. Do not try to move your wrist. No lifting with you r hand. - Dressings: Please keep the dressing clean, dry and in place. You have sutures underneath the dressing which will come out at [...] make decisions. After being discharged [facility], remember not to do the following: drive [...] gradually from the prescript ion pain medication. documented in this encounter Medications at Time [...] tablets by | 20 | 0 | 07/11/20 | | | HYDROcodone-acetamin | mouth every 4 hours | tablet | | 18 | 8 | | ophen (NORCO) 5-325 | as needed for Pain. | | | | | | mg per tablet | | | | | | + + + +---------+ + + | rizatriptan | Take by mouth as | | 0 | 12/10/19 | | | (MAXALT-CEMENT SACK BREAKER) 10 mg | needed for Migraine. | | | 18 | 9 | | disintegrating | | | | | | | tablet | | | | | | + + + +---------+ + + documented as of this encounter H&P Notes Jose Alejandro Raymundo MD - 07/11/2018 3:47 PM PDTSURGICAL INTERIM HISTORY & PHYSICAL UPDATE Pt. Name/Age/: Mary Jo Almendarez Lisset 42 y.o. 1975 Date of admission: 07/11/2018 The current H&P was reviewed. The patient [...] Electronically signed by: Jose Alejandro Raymundo MD, 07/11/2018 15:47 [facility] Jose Alejandro Robertson MD - 07/04/2018 2:30 PM PDT [facility] PRE-OPERATIVE VISIT Pt. Name/Age/: Mary Jo Almendarez Lisset 42 y.o. 1975 Primary Care Physician: Wayne Cunha Chief Complaint/Reason for Visit: Pre-op Exam (right carpal tunnel release dos 07/11/18) and Wrist Pain History of Present Illness: The patient is a pleasant 42 y.o. female who presents with for a pre-operative visit prior to right open carpal tunnel release. He reports that her symptoms of been getting much wors e. Her pain is increased over time. She has more numbness and tingling in her right hand t pratt she did in the past. She has found herself relying more on the left hand that she would like to and it symptoms are also getting worse due to this. She wishes to proceed with gerald chavez at this time. Past Medical History: Past Medical History: Diagnosis Date Acute low back pain Adjustment disorder with mixed emotional features Anxiety Concussion with no loss of consciousness Dysuria JANE (generalized anxiety disorder) Genital herpes simplex Joint pain Migraine Sinusitis URI (upper respiratory infection) Vitamin D deficiency Past Surgical History: Procedure Laterality Date SECTION GALLBLADDER SURGERY removed when she was 18 TONSILLECTOMY Allergies: Allergies Allergen Reactions Acetaminophen Other (See Comments) Reaction not specified in outside medical records Cephalexin Other (See Comments) and Nausea And Vomiting Reaction not specified in outside medical records Naproxen Other (See Comments) Reaction not specified in outside medical records Oxycodone Other (See Comments) "weird dreams" Sulfamethoxazole-Trimethoprim Other (See Comments) Reaction not specified in outside medical records Current Medications: Current Outpatient Prescriptions Medication Sig Dispense Refill ALPRAZolam (XANAX) 0.5 mg tablet Take 0.5 mg by mouth as needed for Anxiety. ibuprofen (ADVIL,MOTRIN) 600 MG tablet Take 400-600 mg by mouth Daily as needed for Lili n. rizatriptan (MAXALT-CEMENT SACK BREAKER) 10 mg disintegrating tablet Take by mouth as needed for Migra ine. traMADol (ULTRAM) 50 mg tablet Take 1 tablet by mouth EVERY 4 TO 6 HOURS NEEDED. 30 tablet 0 traZODone (DESYREL) 100 mg tablet Take [...] Ctuir Social History Main Topics Smoking status: Never Smoker Smokeless tobacco: Never Used Alcohol use Not on file Drug use: Unknown Sexual activity: Not on file Other Topics Concern Not on file Social History Narrative No narrative on file Review of Systems All of these are negative unless otherwise marked Review of systems otherwise negative except as in history of present illness Admission Weight: Weight: 78.5 kg (173 lb) BMI: Body mass index is 31.64 kg/m. Physical Examination: BP 123/79 | Pulse 60 | Temp 36.6 C (97.8 F) (Oral) | Resp 12 | Ht 1.575 m (5' 2") | Wt 78.5 kg (173 lb) | SpO2 96% | BMI 31.64 kg/m General: Alert, oriented, no acute distress HEENT: Normocephalic, atraumatic Cardiovascular: Regular rate and rhythm Respiratory: Breathing normally at a regular rate Ortho Exam Right upper extremity exam: Radial pulse 2+. Sensation intact to light touch in the first dorsal webspace, and the pad of the small finger. Sensation diminished in the median nerve distribution. Able to flex a nd extend the thumb at the interphalangeal joint, make an "ok" sign, adduct and abduct the f ingers, and oppose the thumb to the small finger. Positive Tinel's at the carpal tunnel. N o obvious thenar wasting. Diagnostic Studies: Imaging None Labs- No results found for: NA, K, CL, CO2, ANIONGAP, GLU, BUN, CREA, GFRNONAA, CALCIUM, ALBUMIN, BILITOT, TOTALPROTEIN, AST, ALT, ALKPHOS, WBC, HGB, HCT, MCV, LABPLAT, PLT, ESR, CRP, LIPAS E, AMYLASE, PT, INR Assessment and Plan: 1. Right carpal tunnel syndrome 2. Left carpal tunnel syndrome The patient is a pleasant 42 y.o. female who presents for a pre-operative visit regarding r ight open carpal tunnel release. Treatment options were discussed with the patient including non-operative treatment modalities. Considering the nature of the patient's condition, deci mena was made to proceed with surgery. Risks, benefits and alternatives to surgery were disc ussed. The patient agreed to proceed with surgery. Special risks to the procedure include th e possibility of median nerve injury or other nerve injury and pre-existing permanent nerve damage due to the compression and these were discussed with the patient. Follow-up: 2 weeks after surgery with no x-ray Portions of this report were transcribed using voice recognition software. Every effort wa s made to ensure accuracy; however, inadvertent computerized fire extinguisher sprinkler inspector errors may be pre sent. I appreciate the opportunity to help with the management of this patient. Jose Alejandro Raymundo MD documented in this en counter Miscellaneous Notes Op Note - Jose Alejandro Raymundo MD - 07/11/2018 5:15 PM PDTNAME: Mary Jo Robb DATE OF : 1975 DATE OF SERVICE: 07/11/2018 PREOPERATIVE DIAGNOSIS: Right Carpal Tunnel Syndrome POSTOPERATIVE DIAGNOSIS: Same OPERATION PERFORMED: Right open carpal tunnel release SURGEON: Jose Alejandro Raymundo MD WELLNESS MANAGER: None ANESTHESIA: MAC ESTIMATED BLOOD LOSS: 5 mL TOURNIQUET TIME: 11 minutes at 200 mmHg. DRAINS: None. CULTURES: None. SPECIMENS: None. COMPLICATIONS: None. OPERATIVE FINDINGS: Consistent with diagnosis IMPLANTS: None INDICATIONS: Mary Jo Robb is a 42 y.o. female who presents with a history of Right c arpal tunnel syndrome. She had significant numbness and tingling. She wished to proceed wi th surgery. DESCRIPTION OF PROCEDURE: Mary Jo was seen in the Preoperative Holding Area. The patient's Right wrist was marked in the standard fashion. All of the patient's questions were answere d at that time. Following this, the patient was taken back to the Operating Room and we placed a hand table was placed next to the patient. The patient was then administered MAC by the Anesthesia Tea m. 20 mL of 1% lidocaine with epinephrine were used to block the carpal tunnel and anesthesiz e the skin along the carpal tunnel in total after starting the MAC> The patient was then prepped and draped [...] The transverse carpal ligament was seen to retract nicely and the forearm fascia was divided about 1 cm proximal to the wr ist. The nerve was seen and felt to be decompressed. We then irrigated the wound thoroughly. 3-0 nylon was used to close the skin in an interrupted fashion. Xeroform, 4x4s, Mirela, and an RAVI were placed on the hand. The patient was then extubated and then taken to the Post Anesthesia Care Unit in stable co ndition. The patient was then taken to the Post Anesthesia Care Unit in stable condition. POSTOPERATIVE INSTRUCTIONS: -Non-weight bearing on the operative side -Work on finger motion to help reduce swelling and retain motion -Follow-up in 2 weeks -Keep dressing clean, dry and intact documented in this en counter Plan of Treatment Not on filedocumented as of this encounter Procedures + +--------+ + + + | Procedure Name | Priori | Date/Time | Associated Diagnosis | Comments | | | ty | | | | + +--------+ + + + | RELEASE CARPAL | | 07/11/2018 | Bilateral carpal | | | TUNNEL | | 4:01 PM | tunnel syndrome | | | | | PDT | (G56.03) | | + +--------+ + + + +---+--------+ | | | | | Specia | | | l | | | Needs | | | [id number] | +---+--------+ + +------+ +---+ + | POCT TEST, | STAT | 07/11/2018 | | Results for this | | URINE, QUAL | | 12:55 PM | | procedure are in the | | | | PDT | | results section. | + +------+ +---+ + documented in this encounter Results POCT Test, Urine, QUAL (07/11/2018 12:55 PM PDT) + + + + + + | Component | Value | Ref Range | Performed | Pathologist | | | | | At | Signature | + + + + + + | | Negative | Negative | [facility] | | | Test, | | | [facility] | | | Urine, POC | | | CORE | | | | | | LABORATORY | | + + + + + + | Internal QC | Acceptable | Acceptable | [facility] | | | | | | [facility] | | | | | | CORE | | | | | | LABORATORY | | + + + + + + | Specific | | 1.010, 1.015, | [facility] | | | [place], | | 1.020, 1.025 | [facility] | | | POC | | | CORE | | | | | | LABORATORY | | + + + + + + | Lot Number | [id number] | | [facility] | | | | | | [facility] | | | | | | CORE | | | | | | LABORATORY | | + + + + + + | Expiration | 11/28/2019 | | [facility] | | | Date | | | [facility] | | | | | | CORE | | | | | | LABORATORY | | + + + + + + + + | Specimen | + + | Urine | + + + + + + + | Performing | Address | City/State/Zipcode | Phone Number | | Organization | | | | + + + + + | [facility] | [address] [place] [address] [place] | [place] [address] | [phone] | | [facility] | | | | | [facility]ORAT[facility] | | | | + + + + + documented in this encounter Visit Diagnoses + + | Diagnosis | + + | Right carpal tunnel syndrome - Primary Carpal tunnel syndrome | + + documented in this encounter Administered Medications + +--------+---------+------+------+------+ | Medication Order | MAR | Action | Dose | Rate | Site | | | Action | Date | | | | + +--------+---------+------+------+------+ + +---+ | HYDROcodone-acetaminophen | | | (NORCO) 5-325 mg per tablet 1-2 | | | tablet 1-2 tablet, Oral, EVERY 4 | | | HOURS PRN, Pain, Starting Tue | | | 07/11/18 at 1649, Recovery/Phase | | | I | | + +---+ | | | + +---+ | ondansetron (ZOFRAN ODT) | | | disintegrating tablet 4 mg 4 mg, | | | Oral, EVERY 6 HOURS PRN, Nausea, | | | Vomiting, Starting Tue07/11/18 | | | at 1649, Recovery/Phase I | | + +---+ | | | + +---+ documented in this encounter
--- OUTSIDE RECORDS SUMMARY | ~2020-04-18 | XMS | Encounter Summary ---
Demographics + + + | Address | [address] | | | [place] [address] | + + + | Home Phone | | + + + | Preferred Language | Unknown | + + + | Marital Status | | + + + | Zoroastrian Affiliation | 1041 | + + + | Race | Unknown | + + + | Ethnic Group | Unknown | + + + Author + + + | Author | [facility] | | | and [place] | + + + | Organization | [facility] | | | and [place] | + + + | Address | Unknown | + + + | Phone | Unavailable | + + + Support + + + + + | Name | Relationship | Address | Phone | + + + + + | Tai Darling | ECON | [address] | | | | | [place] | | | | | [address] | | + + + + + Care Team Providers + +------+ + | Care Electrician Substation Name | Role | Phone | + +------+ + | Wayne Cunha DO | PCP | | + +------+ + Encounter Details +--------+ + + + + | Date | Type | Department | Care Team | Description | +--------+ + + + + | 07/03/ | Orders Only | [facility] | Jose Alejandro Raymundo | Bilateral carpal | | 2018 | | ORTHOPEDIC SURGERY | [address] | tunnel syndrome | | | | [address] | [address] | (Primary Dx) | | | | [place] | [place] [address] | | | | | [address] | [phone] | | | | | [phone] | | | +--------+ + + + [...]
--- OUTSIDE RECORDS SUMMARY | ~2020-04-18 | XMS | Encounter Summary ---
Demographics + + + | Address | [address] | | | [place] [address] | + + + | Home Phone | | + + + | Preferred Language | Unknown | + + + | Marital Status | | + + + | Pentecostalism Affiliation | 1041 | + + + | Race | Unknown | + + + | Ethnic Group | Unknown | + + + Author + + + | Author | [facility] | | | and [place] | + + + | Organization | [facility] | | | and [place] | + + + | Address | Unknown | + + + | Phone | Unavailable | + + + Support + + + + + | Name | Relationship | Address | Phone | + + + + + | Tai Darling | ECON | [address] | | | | | [place], [place] | | | | | [address] | | + + + + + Care Team Providers + +------+ + | Care Business Analytics Analyst Name | Role | Phone | + +------+ + | Latricia Pal | PCP | | + +------+ + Reason for Visit +--------+--------+ + | Reason | Onset | Comments | | | Date | | +--------+--------+ + | Letter | 09/04/ | | | | 2019 | | +--------+--------+ + Encounter Details +--------+ + + + + | Date | Type | Department | Care Team | Description | +--------+ + + + + | 09/04/ | Telephone | [facility] | Jose Alejandro Raymundo | Letter | | 2019 | | ORTHOPEDIC SURGERY | [address] | | | | | [address] | [address] [facility] | | | | | [place] | [place] [address] | | | | | [address] | [phone] | | | | | [phone] | | | +--------+ + + + [...] Notes Telephone Encounter - Anu Christianson I Power Systems Engineer - 09/06/2019 9:43 AM PSTFaxed to patients employer CTR attn: Paige Taverasblank Faxed to Electronically signed by Anu Christianson Power Systems Engineer at 08/19 9:44 AM PSTTelephone Encounter - Jose Alejandro Raymundo MD - 09/06/2019 8:34 AM PSTAdded a letter elephone Encounter - Anu Christianson I Power Systems Engineer - 09/05/2019 11:41 AM PSTP lereal advise. I can fax it via [employer] please let me know when you get the letter wrote up. Thanks!Nicki sow signed by Anu Christianson Power Systems Engineer at 09/05/2019 11:42 AM PSTTelephone Raymond huffman - Gisele Andrade - 09/04/2019 11:13 AM PSTPatient called stating she needs a le tter for her employer stating she had a pre op appointment on 09/24/18 and surgery for left ca rpal tunnel 10/03/2018 and would like that letter faxed too . Please advice, victor hugo nk you. documented in this encounter Plan of Treatment Not on filedocumented as of this encounter Visit Diagnoses Not on filedocumented in this encounter"
--- OUTSIDE RECORDS SUMMARY | ~2020-04-18 | XMS | Encounter Summary ---
Demographics + + + | Address | [address] | | | [place] [address] | + + + | Home Phone | | + + + | Preferred Language | Unknown | + + + | Marital Status | | + + + | Jain Affiliation | 1041 | + + + | Race | Unknown | + + + | Ethnic Group | Unknown | + + + Author + + + | Author | [facility] | | | and [place] | + + + | Organization | [facility] | | | and [place] | + + + | Address | Unknown | + + + | Phone | Unavailable | + + + Support + + + + + | Name | Relationship | Address | Phone | + + + + + | Tai Darling | ECON | [address] | | | | | [place] | | | | | [address] | | + + + + + Care Team Providers + +------+ + | Care Line Maintainer Section Name | Role | Phone | + +------+ + | Latricia Pal | PCP | | + +------+ + Encounter Details +--------+ + + + + | Date | Type | Department | Care Team | Description | +--------+ + + + + | 09/04/ | Transcribed | [facility] | Jose Alejandro Raymundo | | | 2019 | Orders | ORTHOPEDIC SURGERY | [address] | | | | | [address] | [address] | | | | | [place] [address] | [place] [address] | | | | | [address] | [phone] | | | | | [phone] | | | +--------+ + + + [...]
--- OUTSIDE RECORDS SUMMARY | ~2020-04-18 | XMS | Encounter Summary ---
Demographics + + + | Address | [address] | | | [place] [address] | + + + | Home Phone | | + + + | Preferred Language | Unknown | + + + | Marital Status | | + + + | Buddhist Affiliation | 1041 | + + + | Race | Unknown | + + + | Ethnic Group | Unknown | + + + Author + + + | Author | [facility] | | | and [place] | + + + | Organization | [facility] | | | and [place] | + + + | Address | Unknown | + + + | Phone | Unavailable | + + + Support + + + + + | Name | Relationship | Address | Phone | + + + + + | Tai Robb | ECON | [address] | | | | | [place] | | | | | [address] | | + + + + + Care Team Providers + +------+ + | Care Scale Tank Operator Name | Role | Phone | + +------+ + | Latricia Pal | PCP | | + +------+ + Reason for Visit + + + | Reason | Comments | + + + | Follow-up, Office | Discuss surgery | | Visit | | + + + | Carpal Tunnel | Left | + + + Follow Up (Routine) +--------+--------+ + + + + | Status | Reason | Specialty | Diagnoses / | Referred By | Referred To | | | | | Procedures | Contact | Contact | +--------+--------+ + + + + | Closed | | Orthopedic | Diagnoses | Delmer | Breanne | | | | Surgery | Left carpal | Joshua Magaña MD | Jose Alejandro | | | | | tunnel | [address] | MD Brendan | | | | | syndrome | [address] | [address] | | | | | Procedures | [place], | [place] | | | | | Follow Up | [place] [address] | [place] | | | | | | Phone: | [phone] | | | | | | [phone] | Phone: | | | | | | Fax: | [phone] | | | | | | [phone] | Fax: | | | | | | | [phone] | +--------+--------+ + + + + Encounter Details +--------+---------+ + + + | Date | Type | Department | Care Team | Description | +--------+---------+ + + + | 07/31/ | Office | [facility] | Jose Alejandro Raymundo | Left carpal tunnel | | 2019 | Visit | ORTHOPEDIC SURGERY | [address] | syndrome (Primary | | | | [address] | [address] | Dx) | | | | [place] | [place] [address] | | | | | [address] | [phone] | | | | | [phone] | | | +--------+---------+ + + + [...] + + + + | Weight | 80.6 kg (177 lb 11.1 | 07/31/2019 10:10 AM | | | | oz) | PST | | + + + + + | Height | 157.5 cm (5' 2") | 07/31/2019 10:10 AM | | | | | PST | | + + + + + | Body Mass Index | 32.5 | 07/31/2019 10:10 AM | | | | | PST | | + + + + + documented in this encounter Patient Instructions Patient Instructions Jose Alejandro Raymundo MD - 07/31/2019 10:30 AM PST Carpal Tunnel Syndrome Carpal tunnel syndrome is a painful condition of the wrist and arm. It is caused by pressur e on the median nerve. The median nerve is one of the nerves that give feeling and movement to the hand. It passes through a tunnel in the wrist called the carpal tunnel. This tunnel i s made up of bones and ligaments. Narrowing of this tunnel or swelling of the tissues inside the tunnel puts pressure on the median nerve. This causes numbness, pins and needles, or el ectric shooting pains in your hand and forearm. Often the pain is worse at night and may wak e you when you are asleep. Carpal tunnel syndrome may occur during and [...] Move your fingers and wrists often to prevent stiffness. Elevate your arms on pillows when [...] not bent back when typing. You may tmvykcs-cdj-wdumhpi pain medicine to treat pain and inflammation, unless ano er medicine was prescribed.Anti-inflammatory pain medicines, such as ibuprofen or naproxen may be more effective than acetaminophen, which treats pain, but not inflammation.If you have chronic liver or kidney disease or ever had a stomach ulcer or gastrointestinal bleedin g, talk with your healthcare provider before using these medicines. Opioid pain medicine [...] Follow up with your healthcare provider, oras advised. If X-rays were taken,you will be notified of any new findings that may affect your care. When to seek medical advice Call your healthcare provider right away if any of these occur: Pain not improving with the above treatment Fingers or hand become cold, blue, numb, or tingly Your whole arm becomes swollen or weak Date Last Reviewed: 01/17/201819996046-0119 [employer]. [address] [place] [address]. All [facility] ts reserved. This information is not intended as a substitute for professional medical care. Always follow your healthcare professional's instructions. documented in this encounter Progress Notes Jose Alejandro Raymundo MD - 07/31/2019 10:30 AM PSTFormatting of this note might be dif ferent from the original. [facility] RETURN CLINIC VISIT Pt. Name/Age/: Mary Jo Robb 43 y.o. 1975 Primary Care Physician: Latricia Pal Chief Complaint/Reason for Visit: Follow-up, Office Visit (Discuss surgery) and Carpal Tunnel (Left) History of Present Illness: The patient is a pleasant 43 y.o. female who presents for a repeat visit for her left carpa l tunnel. She previously had a right carpal tunnel release last year. That was done just o juan a year ago. She had a slow recovery from that but ultimately did well. She feels like her right hand is doing considerably better than her left hand at this point. She is at the point where she wished to proceed with a left carpal tunnel release. Her pain is about a 3 out of 10 at the left at baseline and 7 out of 10 at its worst. She notices numbness and t ingling in her left hand at the end of the day at work. She localizes this to the thumb thr ough middle fingers. The little finger is never involved. She feels like she has had more consistent pain with some forearm and wrist pain and some increased numbness over the past y ear with regards to the left side. She is happy with the right hand at this point. Past Medical History: Past Medical History: Diagnosis [...] TUNNEL-RIGHT; Surgeon: Jose Alejandro Raymundo MD; Location: [facility] MAIN OR SECTION GALLBLADDER SURGERY removed when [...] by mouth if needed for headache 0 terbinafine (LAMISIL) 1% cream apply twice daily to affected area 42 g 3 traZODone (DESYREL) 100 mg tablet Take 100 [...] level: Not on file Occupational History Employer: [employer] Social Needs Financial resource strain: Not on [...] file Gets together: Not on file Attends presybeterian service: Not on file Active member of [...] of these are negative unless otherwise marked Musculoskeletal: [] Physical handicaps [x] Back or shoulder pain []Rheumatoid disease [] Osteoarthritis [x] Joint pain [] Joint swelling []Gout [] Leg cramps at night Endocrine: [] Thyroid [] Diabetes Admission Weight: Weight: 80.6 kg (177 lb 11.1 oz) BMI: Body mass index is 32.5 kg/m . Physical Examination: Ht 1.575 m (5' 2") | Wt 80.6 kg (177 lb 11.1 oz) | BMI 32.50 kg/m General: Alert, oriented, no acute distress HEENT: Normocephalic, atraumatic Cardiovascular: Regular rate and rhythm Respiratory: Breathing normally at a regular rate Ortho Exam Left hand exam: Radial pulse 2+. Sensation intact to light touch in the first dorsal webspace, and the pads of the small and index fingers. Able to flex and extend the thumb at the interphalangeal joe int, make an "ok" sign, adduct and abduct the fingers, and oppose the thumb to the small fin jorge. Positive Tinel's at the carpal tunnel. Negative Tinel's at the cubital tunnel.Radial pulse 2+. Sensation intact to light touch in the first dorsal webspace, and the pads of the small and index fingers. Able to flex and extend the thumb at the interphalangeal joint, make an "ok" sign, adduct and abduct the fingers, and oppose the thumb to the small finger. Diagnostic Studies: Imaging Labs- No results found for: NA, K, CL, CO2, ANIONGAP, GLU, BUN, CREA, GFRNONAA, CALCIUM, ALBUMIN, BILITOT, TOTALPROTEIN, AST, ALT, ALKPHOS, WBC, HGB, HCT, MCV, LABPLAT, PLT, ESR, CRP, LIPAS E, AMYLASE, PT, INR Assessment and Plan: 1. Left carpal tunnel syndrome Case Request - OR/ENDO/ASC/OB: Left carpal tunnel release The patient is a pleasant 43 y.o. female who presents for a repeat visit with left carpal t unnel syndrome. She was previously diagnosed by Dr. matthew with moderate carpal tunnel syndr ome. Treatment options were discussed with the patient including non-operative treatment mod alities. Considering the nature of the patient's condition, decision was made to proceed wit h left carpal tunnel release under MAC. The patient has a clinical history and examination consistent with left carpal tunnel syndr ome. The patient has intermittent numbness and tingling in the left hand. The risks, benefit s and alternatives to surgery were discussed with the patient. The rationale for surgery was explained, as was the procedure and post-operative course. Risks including injury to the me kirill nerve, pillar pain, and wound healing issues were discussed. The importance of avoiding pushing on the palm and avoiding heavy lifting were discussed. The patient wished to procee d with surgery. All questions were answered. We will plan on performing a left open carpal t unnel release under MAC anesthesia. I'll plan on seeing the patient back for a pre-operative visit to answer any other questions. She thinks that she would like to do this at the beginning of the year in 2019 Follow-up: Return preoperative visit. with no x-ray Portions of this report were transcribed using voice recognition software. Every effort wa s made to ensure accuracy; however, inadvertent computerized bank worker errors may be pre sent. I appreciate the opportunity to help with the management of this patient. Jose Alejandro Raymundo MD documented in this encounter Plan of Treatment Not on filedocumented as of this encounter Visit Diagnoses + + | Diagnosis | + + | Left carpal tunnel syndrome - Primary Carpal tunnel syndrome | + + documented in this encounter
--- OUTSIDE RECORDS SUMMARY | ~2020-04-18 | XMS | Encounter Summary ---
Demographics + + + | Address | [address] | | | [place] [address] | + + + | Home Phone | | + + + | Preferred Language | Unknown | + + + | Marital Status | | + + + | Uatsdin Affiliation | 1041 | + + + | Race | Unknown | + + + | Ethnic Group | Unknown | + + + Author + + + | Author | [facility] | | | and [place] | + + + | Organization | [facility] | | | and [place] | + + + | Address | Unknown | + + + | Phone | Unavailable | + + + Support + + + + + | Name | Relationship | Address | Phone | + + + + + | Tai Darling | ECON | [address] | | | | | [place] | | | | | [address] | | + + + + + Care Team Providers + +------+ + | Care Wind Turbine Mechanic Name | Role | Phone | + +------+ + | Latricia Pal | PCP | | + +------+ + Reason for Visit + +--------+ + | Reason | Onset | Comments | | | Date | | + +--------+ + | Medication Refill | 10/15/ | | | | 2020 | | + +--------+ + Encounter Details +--------+ + + + + | Date | Type | Department | Care Team | Description | +--------+ + + + + | 10/15/ | Telephone | [facility] | Jose Alejandro Raymundo | Medication Refill | | 2019 | | ORTHOPEDIC SURGERY | [address] | | | | | [address] | [address] [facility] | | | | | [place] | [place] [address] | | | | | [address] | [phone] | | | | | [phone] | | | +--------+ + + + [...] Notes Telephone Encounter - Anu Christianson I Jewel Bearing Broacher - 10/16/2019 12:42 PM PSTTramad ol refill was sent in yesterday, 10.15.2019. elephone Encounter - Anu Christianson I Medical Ass istant - 10/15/2019 9:34 AM PSTPlease advise. Thanks el ephone Encounter - Gisele Andrade - 10/15/2019 9:30 AM PSTPatient called requesting r efill. Medication:Tramadol Out in:(New Prescription) What Pharmacy: [facility] documented in this e ncounter Plan of Treatment Not on filedocumented as of this encounter Visit Diagnoses Not on filedocumented in this encounter"
--- OUTSIDE RECORDS SUMMARY | ~2020-04-18 | XMS | Encounter Summary ---
Demographics + + + | Address | [address] | | | [place] [address] | + + + | Home Phone | | + + + | Preferred Language | Unknown | + + + | Marital Status | | + + + | Synagogue Affiliation | 1041 | + + + | Race | Unknown | + + + | Ethnic Group | Unknown | + + + Author + + + | Author | [facility] | | | and [place] | + + + | Organization | [facility] | | | and [place] | + + + | Address | Unknown | + + + | Phone | Unavailable | + + + Support + + + + + | Name | Relationship | Address | Phone | + + + + + | Tai Darling | ECON | [address] | | | | | [place], [place] | | | | | [address] | | + + + + + Care Team Providers + +------+ + | Care Behavioral Health Associate Name | Role | Phone | + +------+ + | Wayne Cunha DO | PCP | | + +------+ + Encounter Details +--------+ + + + + | Date | Type | Department | Care Team | Description | +--------+ + + + + | 05/30/ | Episode | [facility] | Christy Coronado, | | | 2018 | Changes | ORTHOPEDIC SURGERY | Anesthesia Assistant | | | | | [place] | | | | | | [place] | | | | | | [address] | | | | | | [phone] | | | +--------+ + + + [...]
--- OUTSIDE RECORDS SUMMARY | ~2020-04-18 | XMS | Encounter Summary ---
Demographics + + + | Address | [address] | | | [place] [address] | + + + | Home Phone | | + + + | Preferred Language | Unknown | + + + | Marital Status | | + + + | Spiritism Affiliation | 1041 | + + + | Race | Unknown | + + + | Ethnic Group | Unknown | + + + Author + + + | Author | [facility] | | | and [place] | + + + | Organization | [facility] | | | and [place] | + + + | Address | Unknown | + + + | Phone | Unavailable | + + + Support + + + + + | Name | Relationship | Address | Phone | + + + + + | Tai Darling | ECON | [address] | | | | | [place] | | | | | [address] | | + + + + + Care Team Providers + +------+ + | Care Supervisor Cell Room Name | Role | Phone | + +------+ + | Latricia Pal | PCP | | + +------+ + Reason for Visit +---------+ + | Reason | Comments | +---------+ + | Post Op | Left CTR. DOS 10.03.2019 *sutures* | +---------+ + Encounter Details +--------+---------+ + + + | Date | Type | Department | Care Team | Description | +--------+---------+ + + + | 10/16/ | Office | [facility] | Jose Alejandro Raymundo | s/p gonzalez justice | | 2019 | Visit | ORTHOPEDIC SURGERY | [address] | tunnel release DOS | | | | [address] | [address] [place] | 10/03/2019 (Primary | | | | [place] | [place] [address] | Dx) | | | | [address] | [phone] | | | | | [phone] | | | +--------+---------+ + + + [...] | 79.8 kg (175 lb 14.8 | 10/16/2019 2:18 PM | | | | oz) | PST | | + + + + + | Height | 157.5 cm (5' 2") | 10/16/2019 2:18 PM | | | | | PST | | + + + + + | Body Mass Index | 32.18 | 10/16/2019 2:18 PM | | | | | PST | | + + + + + documented in this encounter Patient Instructions Patient Instructions Jose Alejandro Raymundo MD - 10/16/2019 2:45 PM PST Carpal Tunnel Syndrome Carpal tunnel syndrome [...] not bent back when typing. You may ecremdu-ici-dvnztac pain medicine to treat pain and inflammation, [...] becomes swollen or weak Date Last Reviewed: 01/17/201819995764-8646 [employer]. [address] [place] [address]. All righ ts reserved. This information is not intended as a substitute for professional medical care. Always follow your healthcare professional's instructions. documented in this encounter Progress Notes Jose Alejandro Raymundo MD - 10/16/2019 2:45 PM PSTFormatting of this note might be dif ferent from the original. [facility] POST-OPERATIVE VISIT Pt. Name/Age/: Mary Jo Darling 43 y.o. 1975 Primary Care Physician: Latricia Pal 1. s/p left carpal tunnel release DOS 10/03/2019 Chief Complaint/Reason for Visit: Post Op (Left CTR. DOS 10.03.2019 *sutures*) History of Present Illness: The patient is a pleasant 43 y.o. female who presents for a post-operative visit. Since the surgery, the patient has been having a 2-3/10 pain at baseline and 6-7/10 at its worst. No numbness or tingling at this point. Doing well overall. No new concerns. Physical Examination: Ht 1.575 m (5' 2") | Wt 79.8 kg (175 lb 14.8 oz) | BMI 32.18 kg/m General: Alert, oriented, no acute distress [...] the small fin jorge. Incision is clean, dry and intact. Sutures were removed. Diagnostic Studies: Imaging No new images Labs- No results found for: NA, K, CL, CO2, ANIONGAP, GLU, BUN, CREA, GFRNONAA, CALCIUM, ALBUMIN, BILITOT, TOTALPROTEIN, AST, ALT, ALKPHOS, WBC, HGB, HCT, MCV, LABPLAT, PLT, ESR, CRP, LIPAS E, AMYLASE, PT, INR Assessment and Plan: 1. s/p left carpal tunnel release DOS 10/03/2019 The patient is a pleasant 43 y.o. female who presents for a post-operative visit after the above surgery. At this point, we will see her back in 4 weeks. I advised her not to lift an y more than 2 pounds. She is doing well overall. All her questions were answered. Follow-up: 4 weeks with no x-ray Portions of this report were transcribed using voice recognition software. Every effort wa s made to ensure accuracy; however, inadvertent computerized quality improvement consultant errors may be pre sent. I appreciate the opportunity to help with the management of this patient. Jose Alejandro Raymundo MD documented in this encounter Plan of Treatment Not on filedocumented as of this encounter Visit Diagnoses + + | Diagnosis | + + | s/p left carpal tunnel release DOS 10/03/2019 - Primary Carpal tunnel syndrome | + + documented in this encounter
--- OUTSIDE RECORDS SUMMARY | ~2020-04-18 | XMS | Encounter Summary ---
Demographics + + + | Address | [address] | | | [place] [address] | + + + | Home Phone | | + + + | Preferred Language | Unknown | + + + | Marital Status | | + + + | Jew Affiliation | 1041 | + + + | Race | Unknown | + + + | Ethnic Group | Unknown | + + + Author + + + | Author | [facility] | | | and [place] | + + + | Organization | [facility] | | | and [place] | + + + | Address | Unknown | + + + | Phone | Unavailable | + + + Support + + + + + | Name | Relationship | Address | Phone | + + + + + | Tai Darling | ECON | [address] | | | | | [place] | | | | | [address] | | + + + + + Care Team Providers + +------+ + | Care Financial Underwriter Name | Role | Phone | + +------+ + | Wayne Cunha DO | PCP | | + +------+ + Reason for Visit + +--------+ + | Reason | Onset | Comments | | | Date | | + +--------+ + | Medication Question | 06/29/ | | | | 2017 | | + +--------+ + | Medication Related | 07/03/ | | | | 2018 | | + +--------+ + Encounter Details +--------+ + + + + | Date | Type | Department | Care Team | Description | +--------+ + + + + | 06/29/ | Telephone | [facility] | Jose Alejandro Raymundo | Medication Question; | | 2017 | | ORTHOPEDIC SURGERY | [address] | Medication Related | | | | [address] | [address] [facility] | | | | | [place] | [place] [address] | | | | | [address] | [phone] | | | | | [phone] | | | +--------+ + + + [...] Miscellaneous Notes Telephone Encounter - Anu Christianson Medical Assistant - 07/03/2018 5:24 PM PDTI call ed patient and informed her that I have called in her prescription for Tramodol 50 mg to her preferred pharmacy of [facility] in [place], [place]. elephone Encounter - Anu Christianson Medi cal Customer Operations Manager - 07/03/2018 3:46 PM PDTI got in contact with Mary Jo she said she is brett coyne to try the Tramadol to help try and relieve the pain prior to surgery.Electronically corey d by Yashira Ivan Assistant at 07/03/2018 3:52 PM PDTTelephone Encounter - Karen Marquez - 07/03/2018 9:13 AM PDTPatricia is calling regarding this. Please advise. She can be reached at [phone]. 9 :14 AM PDTTelephone Encounter - Anu Christianson I, Genetic Coordinator - 06/30/2018 9:53 AM PDTPlease advise. ThanksElectronically signed by Anu Christianson Genetic Coordinator at 08/2018 9:53 AM PDTTelephone Encounter - Jenise Siu - 06/29/2018 3:39 PM PDTPatient called and requested a pain medication for her right hand pain. [facility]. Her pain by end of day is 7 to 8 from 0-10 on pain scale. Please advise an d call [phone] Patient cannot take naprosyn due to allergic reaction documented in this encounter Plan of Treatment Not on filedocumented as of this encounter Visit Diagnoses Not on filedocumented in this encounter"
--- OUTSIDE RECORDS SUMMARY | ~2020-04-18 | XMS | Encounter Summary ---
Demographics + + + | Address | [address] | | | [place] [address] | + + + | Home Phone | | + + + | Preferred Language | Unknown | + + + | Marital Status | | + + + | Quaker Affiliation | 1041 | + + + | Race | Unknown | + + + | Ethnic Group | Unknown | + + + Author + + + | Author | [facility] | | | and [place] | + + + | Organization | [facility] | | | and [place] | + + + | Address | Unknown | + + + | Phone | Unavailable | + + + Support + + + + + | Name | Relationship | Address | Phone | + + + + + | Tai Darling | ECON | [address] | | | | | [place] | | | | | [address] | | + + + + + Care Team Providers + +------+ + | Care Parts Puller Name | Role | Phone | + +------+ + | Wayne Cunha PCP | | + +------+ + Reason for Visit +--------+ + | Reason | Comments | +--------+ + | Rash | Room 7: Rash spreading x 2 wks - started on hips, now on face and | | | upper arms and legs - [facility] -thought it was | | | possible ringworm -used antifungal spray helped at first, now | | | "new spots" appearing -no new soaps/detergents/foods | +--------+ + Encounter Details +--------+---------+ + + + | Date | Type | Department | Care Team | Description | +--------+---------+ + + + | 07/15/ | Office | [facility] | Jose Alejandro Carrillo | Ringworm of body | | 2019 | Visit | [facility] [address] | GAMALIEL Hollingsworth [address] | (Primary Dx) | | | | [place] | [address] [place] | | | | | [address] | [place] [address] | | | | | [phone] | [phone] | | | | | | | | +--------+---------+ + + + [...] + + + | Blood Pressure | 135/77 | 07/15/2019 4:38 PM | | | | | PDT | | + + + + + | Pulse | 73 | 07/15/2019 4:38 PM | | | | | PDT | | + + + + + | Temperature | 37.3 C (99.1 F) | 07/15/2019 4:38 PM | | | | | PDT | | + + + + + | Respiratory Rate | 17 | 07/15/2019 4:38 PM | | | | | PDT | | + + + + + | Oxygen Saturation | 98% | 07/15/2019 4:38 PM | | | | | PDT | | + + + + + | Inhaled Oxygen | - | - | | | Concentration | | | | + + + + + | Weight | 80.6 kg (177 lb 11.1 | 07/15/2019 4:38 PM | | | | oz) | PDT | | + + + + + | Height | 157.5 cm (5' 2") | 07/15/2019 4:38 PM | | | | | PDT | | + + + + + | Body Mass Index | 32.5 | 07/15/2019 4:38 PM | | | | | PDT | | + + + + + documented in this encounter Patient Instructions Patient Instructions Jose Alejandro Carrillo, GUEST SERVICE TEAM LEADER - 07/15/2019 4:15 PM PDT Fungal Skin Infection (Tinea) A fungal infection occurs when too much fungus grows on or in the body. Fungus normally cole es on the skin in small amounts and does not cause harm. But when too much grows on the skin , it causes an infection. This is also known as tinea. Fungal skin infections are common and not usually serious. The infection often starts as a small red area the size of a pea. The skin may turn dry and flaky. The area may itch. As the fungus grows, it spreads out in a red [place]. Because of h ow it looks, fungal skin infection is often called ringworm, but it is not caused by a worm. Fungal skin infections can occur on many parts of the body. They can grow on the head, ches t, arms, or legs. They can occur on the buttocks. On the feet, fungal infection is known as athlete s foot. It causes itchy, sometimes painful sores between the toes and the daoktah ttom or sides of the feet. In the groin, the rash is called jock itch. People with weak immune systems can get a fungal infection more easily. This includes peopl e with diabetes or HIV, or who are being treated for cancer. In these cases, the fungal infe ction can spread and cause severe illness. Fungal infections are also more common in people who are overweight. In most cases, treatment is done with antifungal cream or ointment. If the infection is on your scalp, you may take oral medicine. In some cases, a tiny piece of the skin (biopsy) may be taken. This is so it can be tested in a lab. Common fungal infections are treated with creams on the skin or oral medicine. Home care Follow all instructions when using antifungal cream or ointment on your skin. Your healthca re provider may advise using cornstarch powder to keep your skin dry or petroleum jelly to p rovide a barrier. General care: If you were prescribed an oral medicine, read the patient information. Talk with your he althcare provider about the risks and side effects. Let your skin dry completely after bathing. Carefully dry your feet and between your toe s. Dress in loose cotton clothing. Don t scratch the affected area. This can delay healing and may spread the infection. It can also cause a bacterial infection. Keep your skin clean, but don t wash the skin too much. This can irritate your skin. Keep in mind that it may take a week before the fungus starts to go away. It can take 2 to 4 weeks to fully clear. To prevent it from coming back, use the medicine until the rash i s all gone. Follow-up care Follow up with your healthcare provider if the rash does not get better after 10 days of tr eatment. Also follow up if the rash spreads to other parts of your body. When to seek medical advice Call your healthcare provider right awayif any of these occur: Fever of 100.4F (38C) or higher Redness or swelling that gets worse Pain that gets worse Foul-smelling fluid leaking from the skin Date Last Reviewed: 07/20/201619991374-3278 [employer]. [address] [place] [address]. All righ ts reserved. This information is not intended as a substitute for professional medical care. Always follow your healthcare professional's instructions. documented in this encounter Progress Notes Jose Alejandro Carrillo ARNP - 07/15/2019 4:15 PM PDTFormatting of this note might be di fferent from the original. Subjective: Mary Jo is a 43 y.o. female who comes in complaining of Rash (Room 7: Rash spreading x 2 w ks - started on hips, now on face and upper arms and legs - [facility] -thought it was possible ringworm -used antifungal spray helped at first, now "new spots" appearing -no new soaps/detergents/foods ) . HPI Rash Episode onset: 2 weeks of itchy rash that started on the left hip and is now on both arms, both legs and back. The problem has been gradually worsening since onset. The rash is charac terized by itchiness and scaling. Associated with: two weeks ago was at a public steam room, wearing towel only, concerned about possible exposure at that time. Pertinent negatives inc lude no cough, diarrhea, facial edema, fatigue, fever, shortness of breath or sore throat. T reatments tried: OTC antifungal spray for a few days. Improvement on treatment: started to w ork on a few spots but now the rash is worse. Patient's medications, allergies, past medical, surgical, social and family histories were reviewed and updated as appropriate. Review of Systems Constitutional: Negative for chills, fatigue and fever. HENT: Negative for sore throat. Respiratory: Negative for cough, shortness of breath and wheezing. Gastrointestinal: Negative for diarrhea and nausea. Skin: Positive for itching and rash. All other systems reviewed and are negative. Objective: BP 135/77 | Pulse 73 | Temp 37.3 C (99.1 F) (Temporal) | Resp 17 | Ht 1.575 m (5' 2 ") | Wt 80.6 kg (177 lb 11.1 oz) | SpO2 98% | BMI 32.50 kg/m Physical Exam Constitutional: She is oriented to person, place, and time. She appears well-developed and well-nourished. No distress. HENT: Head: Normocephalic. Eyes: Conjunctivae are normal. Neck: Normal range of motion. Cardiovascular: Normal rate. Pulmonary/Chest: Effort normal. No respiratory distress. Musculoskeletal: Normal range of motion. Neurological: She is alert and oriented to person, place, and time. Skin: Skin is warm and dry. Capillary refill takes less than 2 seconds. Rash noted. She is not diaphoretic. Multiple sites, left hip, back of both calves, inside of right bicep, lower back. Rash that is circular in appearance with central clearing and scaling on the edges. Nursing note and vitals reviewed. No results found for this or any previous visit (from the past 24 hour(s)). Assessment and Plans: 1. Ringworm of body terbinafine (LAMISIL) 1% cream Take the medication as directed. Discussed with the patient the risk/benefits regarding th e medication use. Good body hygiene Follow up with PCP as needed. Printed material regarding diagnosis provided to patient. Return if symptoms worsen or fail to improve. Electronically signed by GAMALIEL Segura at DATE/TIME: 07/15/2019 17:20 This note was dictated using [employer] recognition software. Occasional wrong- word or s ound-alike substitutions may have occurred due to the inherent limitations of voice recognit ion software. Please read the chart carefully and recognize, using context, where these subs titutions have occurred. documented in this encounter Plan of Treatment Not on filedocumented as of this encounter Visit Diagnoses + + | Diagnosis | + + | Ringworm of body - Primary Dermatophytosis of the body | + + documented in this encounter
--- OUTSIDE RECORDS SUMMARY | ~2020-04-18 | XMS | Encounter Summary ---
Demographics + + + | Address | [address] | | | [place] [address] | + + + | Home Phone | | + + + | Preferred Language | Unknown | + + + | Marital Status | | + + + | Buddhist Affiliation | 1041 | + + + | Race | Unknown | + + + | Ethnic Group | Unknown | + + + Author + + + | Author | [facility] | | | and [place] | + + + | Organization | [facility] | | | and [place] | + + + | Address | Unknown | + + + | Phone | Unavailable | + + + Support + + + + + | Name | Relationship | Address | Phone | + + + + + | Tai Darling | ECON | [address] | | | | | [place] | | | | | [address] | | + + + + + Care Team Providers + +------+ + | Care Food Counselor Name | Role | Phone | + +------+ + | Wayne Cunha PCP | | + +------+ + Reason for Visit + + + | Reason | Comments | + + + | Dressing Change | Post Op Right Carpal Tunnel Release DOS:07/11/2018- Dressing | | | Change/Brace Fitting | + + + Encounter Details +--------+ + + + + | Date | Type | Department | Care Team | Description | +--------+ + + + + | 07/18/ | Clinical | [facility] | Jose Alejandro Raymundo | Dressing change or | | 2017 | Support | ORTHOPEDIC SURGERY | MD [address] | removal, surgical | | | | [address] | [address] [facility] | wound (Primary Dx) | | | | [place] | [place] [address] | | | | | [address] | [phone] | | | | | [phone] | | | +--------+ + + + [...] + + documented as of this encounter Progress Notes Loly Marie Cert MA - 07/18/2018 4:00 PM PDT PATIENT CAME INTO THE OFFICE FOR A DRESSING CHANGE AND BRACE FITTING- due to getting her buck rgical dressing wet while trying to ice her wrist. INCISION APPROXIMATED, NO DRAINAGE, NO RE DNESS OR ODOR. 2X4 BANDAID WAS APPLIED TO THE INCISON. PATIENT WAS INSTRUCTED TO KEEP THE IN CSION CLEAN AND DRY. PATIENT WAS INSTRUCTED TO CHANGE THE BANDAGE DAILY. PATIENT WAS TOLD TO WATCH FOR THE SIGNS OF INFECTION (REDNESS, DRAINAGE, FEVER, ODOR). I INSTRUCTED THE PATIENT TO CONTACT THE OFFICE IMMEDIATELY IF ANY INFECTION SYMPTOMS APPEARED. THE PATIENT VOICED UN DERSTANDING. A FOLLOW UP APPOINTMENT WAS SCHEDULE PRIOR TO SURGERY. THE PATIENT WILL KEEP TH E SCHEDULED APPOINTMENT WITH . IF ANY QUESTIONS OR CONCERNS COME UP BETWEEN NOW AND THEN THE PATIENT WILL CONTACT THE OFFICE. documented in this encounter Plan of Treatment Not on filedocumented as of this encounter Visit Diagnoses + + | Diagnosis | + + | Dressing change or removal, surgical wound - Primary Encounter for change or removal | | of surgical wound dressing | + + documented in this encounter"
--- OUTSIDE RECORDS SUMMARY | ~2020-04-18 | XMS | Encounter Summary ---
Demographics + + + | Address | [address] | | | [place] [address] | + + + | Home Phone | | + + + | Preferred Language | Unknown | + + + | Marital Status | | + + + | Shinto Affiliation | 1041 | + + + | Race | Unknown | + + + | Ethnic Group | Unknown | + + + Author + + + | Author | [facility] | | | and [place] | + + + | Organization | [facility] | | | and [place] | + + + | Address | Unknown | + + + | Phone | Unavailable | + + + Support + + + + + | Name | Relationship | Address | Phone | + + + + + | Tai Darling | ECON | [address] | | | | | [place] | | | | | [address] | | + + + + + Care Team Providers + +------+ + | Care Promotions Executive Name | Role | Phone | + +------+ + | Wayne Cunha PCP | | + +------+ + Reason for Visit +---------+ + | Reason | Comments | +---------+ + | Post Op | Right Carpal Tunnel Release DOS 07/11/2018 | +---------+ + Encounter Details +--------+---------+ + + + | Date | Type | Department | Care Team | Description | +--------+---------+ + + + | 08/22/ | Office | [facility] | Jose Alejandro Raymundo | s/p right open | | 2018 | Visit | ORTHOPEDIC SURGERY | [address] | carpal tunnel | | | | [address] | [address] | release DOS 07/11/18 | | | | [place] | [place] [address] | (Primary Dx) | | | | [address] | [phone] | | | | | [phone] | | | +--------+---------+ + + + [...] | 79.4 kg (175 lb 0.7 | 08/22/2018 4:03 PM | | | | oz) | PST | | + + + + + | Height | 157.5 cm (5' 2") | 08/22/2018 4:03 PM | | | | | PST | | + + + + + | Body Mass Index | 32.02 | 08/22/2018 4:03 PM | | | | | PST | | + + + + + documented in this encounter Patient Instructions Patient Instructions Jose Alejandro Raymundo MD - 08/22/2018 4:00 PM PST Carpal Tunnel Syndrome Carpal tunnel [...] not bent back when typing. You may htanxte-aaq-eevvasb pain medicine to treat pain and inflammation, [...] becomes swollen or weak Date Last Reviewed: 08/11/201519992920-4144 [employer]. [address] [place] [address], [place] [address]. All righ ts reserved. This information is not intended as a substitute for professional medical care. Always follow your healthcare professional's instructions. documented in this encounter Progress Notes Jose Alejandro Raymundo MD - 08/22/2018 4:00 PM PSTFormatting of this note might be different fro m the original. [facility] POST-OPERATIVE VISIT Pt. Name/Age/: Mary Jo Darling 42 y.o. 1975 Primary Care Physician: Wayne Cunha 1. s/p right open carpal tunnel release DOS 07/11/18 Chief Complaint/Reason for Visit: Post Op (Right Carpal Tunnel Release DOS 07/11/2018) History of Present Illness: The patient is a pleasant 42 y.o. female who presents for a post-operative visit. Since the surgery, the patient has been a little bit. She was doing better at the two-week nazario and she is now. She treats a lot of this to going back to work and having to type early. She f eels like this is exacerbated her pain. She also occasionally get sharp intermittent pain i n her small finger. It almost feels like lightening when it happens. It does not occur whe n she taps her wrist or has any known cause. It just occurs randomly. Otherwise, she is do ing alright. Physical Examination: Ht 1.575 m (5' 2") | Wt 79.4 kg (175 lb 0.7 oz) | BMI 32.02 kg/m General: Alert, oriented, no acute distress HEENT: Normocephalic, atraumatic Cardiovascular: Regular rate and rhythm Respiratory: Breathing normally at a regular rate Ortho Exam Right upper extremity: Negative Tinel's over the ulnar nerve. Radial pulse 2+. Sensation intact to light touch in the first dorsal webspace, and the pads of the small and index fingers. Able to flex and ext end the thumb at the interphalangeal joint, make an "ok" sign, adduct and abduct the fingers , and oppose the thumb to the small finger. Incision is clean, dry, and intact. There is some erythema around it. She still has a sma ll amount of swelling in her fingers. Diagnostic Studies: Imaging No imaging Labs- No results found for: NA, K, [...] after the above surgery. At this point, I'll have her keep icing and using ibuprofen. See her back in 6 weeks to make sure she is doing okay. She is recovered more on the side at this point.. Follow-up: 6 weeks with no x-ray Portions of this report were transcribed using voice recognition software. Every effort wa s made to ensure accuracy; however, inadvertent computerized medical assembler errors may be pre sent. I appreciate [...]
--- OUTSIDE RECORDS SUMMARY | ~2020-04-18 | XMS | Encounter Summary ---
Demographics + + + | Address | [address] | | | [place] [address] | + + + | Home Phone | | + + + | Preferred Language | Unknown | + + + | Marital Status | | + + + | Pentecostal Affiliation | 1041 | + + + | Race | Unknown | + + + | Ethnic Group | Unknown | + + + Author + + + | Author | [facility] | | | and [place] | + + + | Organization | [facility] | | | and [place] | + + + | Address | Unknown | + + + | Phone | Unavailable | + + + Support + + + + + | Name | Relationship | Address | Phone | + + + + + | Tai Darling | ECON | [address] | | | | | [place] | | | | | [address] | | + + + + + Care Team Providers + +------+ + | Care Commercial Intelligence Manager Name | Role | Phone | + +------+ + | Wayne Cunha DO | PCP | | + +------+ + Reason for Visit +--------+--------+ + | Reason | Onset | Comments | | | Date | | +--------+--------+ + | Pain | 06/22/ | | | | 2018 | | +--------+--------+ + Encounter Details +--------+ + + + + | Date | Type | Department | Care Team | Description | +--------+ + + + + | 06/22/ | Telephone | [facility] | Jose Alejandro Raymundo | Pain | | 2018 | | ORTHOPEDIC SURGERY | [address] | | | | | [address] | [address] [facility] | | | | | [place] | [place] [address] | | | | | [address] | [phone] | | | | | [phone] | | | +--------+ + + + [...] Notes Telephone Encounter - Anu Christianson I Media Relations Director - 06/28/2018 8:40 AM PDTI noti constanza that after forwarding her. 07/04/18 is good. Thank you Lizzie. elephone Encounter - Lizzie Winters - 06/27/2018 5:44 PM PDTPatient is schedule for pre op on 07/04/2018. Is this appo intment still Necessary? Please advise 18 5:45 PM PDTTelephone Encounter - Anu Christianson I Media Relations Director - 06/26/2018 3:[address] Raymundo, please schedule soon to discuss CTR. NFN needed. Thanks. el ephone Encounter - Anu Christianson I Media Relations Director - 06/22/2018 3:33 PM PDTPlease adv ise. TTelephone Encounter - Jenise Siu - 06/22/2018 2:16 PM PDTPatient called stating righ t wrist has been very painful for 2 weeks. Patient is taking 3 to 4 200 mg tabs 2 to 3 time s a day PRN. Please call [phone] signed by Jenise iSu at 06/22/2018 2:19 PM PDTdocumented in this encounter Plan of Treatment Not on filedocumented as of this encounter Visit Diagnoses Not on filedocumented in this encounter"
--- OUTSIDE RECORDS SUMMARY | ~2020-04-18 | XMS | Encounter Summary ---
Demographics + + + | Address | [address] | | | [place] [address] | + + + | Home Phone | | + + + | Preferred Language | Unknown | + + + | Marital Status | | + + + | Jew Affiliation | 1041 | + + + | Race | Unknown | + + + | Ethnic Group | Unknown | + + + Author + + + | Author | [facility] | | | and [place] | + + + | Organization | [facility] | | | and [place] | + + + | Address | Unknown | + + + | Phone | Unavailable | + + + Support + + + + + | Name | Relationship | Address | Phone | + + + + + | Tai Darling | ECON | [address] | | | | | [place] | | | | | [address] | | + + + + + Care Team Providers + +------+ + | Care Rotary Screen Printing Machine Operator Name | Role | Phone | [...] [address] | | | | | [place] | | [place] | | | | | [place] | | [address] | | | | | N/CARPAL | | Phone: | | | | | TUNNEL SURG | | [phone] | | | | | Left carpal | | Fax: | | | | | tunnel | | [phone] | | | | | release | | | +--------+--------+ + + + + Encounter Details +--------+ + + + + | Date | Type | Department | Care Team | Description | +--------+ + + + + | 10/03/ | Anesthesia | [facility] | Jose Juan Gold MD | | | 2019 | Event | [facility] | [address] | | | | | [address] | [place] | | | | | [place] | [address] | | | | | [address] | | | | | | [phone] | | | +--------+ + + + + Anesthesia Record + + + + + | Procedure Name | Responsible | Anesthesia Start | Anesthesia Stop Time | | | Anesthesiologist | Time | | + + + + + | Left carpal tunnel | Jose Juan Gold MD | 10/03/19 1241 | 10/03/19 1316 | | release (Left Wrist) | | | | + + + + + +----+---+ + + | Da | T | Event | Comment | | te | i | | | | | m | | | | | e | | | +----+---+ + + | 01 | 1 | | | | /1 | 2 | | | | 5/ | 3 | | | | 20 | 2 | | | | 20 | | | | +----+---+ + + | | 1 | An Checkout | Pre-use anesthesia machine/equipment checkout. | | | 2 | | | | | 4 | | | | | 1 | | | +----+---+ + + | | 1 | An Start | Reassessment prior to anesthesia induction/procedure. | | | 2 | | | | | 4 | | | | | 1 | | | +----+---+ + + | | 1 | Breathing | | | | 2 | Spontaneous | | | | 4 | ly | | | | 2 | | | +----+---+ + + | | 1 | First | | | | 2 | Inc/Proc St | | | | 5 | | | | | 7 | | | +----+---+ + + | | 1 | an stop | | | | 3 | data | | | | 1 | | | | | 0 | | | +----+---+ + + | | 1 | An Stop | Patient handed off to recovery nurse. | | | 1 | | | | | 6 | | | +----+---+ + + +------+ | Meds | +------+ + + + | Name | Total | + + + | lidocaine 2% | 60 mg | + + + | propofol (DIPRIVAN) injection | 200 mg | | (bolus) (20 mL) | | + + + | lactated ringers (LR) infusion | 1,200 mL | + + + + + | Name | + + | N2O Flow Rate (L/Min) | + + | O2 Flow Rate (L/Min) | + + | Insp O2 | + + | Exp SEV | + + | Air Flow Rate (L/Min) | + + + + | No blood administrations on file. | + + +--------+ + + + | Type | Details | Placement | Removal | +--------+ + + + | Wound | 10/03/19; 1051; Incision; Left; | 10/03/19 1051 by | 10/03/19 1401 by | | | hand; 10/03/19; 1401 | Ramin Ruiz RN | Svetlana Frederick RN | +--------+ + + + | Periph | 10/03/19; 1053; Right; Forearm; | 10/03/19 1053 by | 10/03/19 1351 by | | eral | [id number] catheter system; | Kasey Monroe RN | Svetlana Frederick RN | | IV | 20 gauge; distraction; no longer | | | | | indicated, removed per | | | | | policy/procedure, catheter/device | | | | | intact; short term use; | | | | | 10/03/19; 1351 | | | +--------+ + + + documented in this encounter Social History + +-------+ +--------+------+ | Tobacco [...] + + documented as of this encounter OR Notes Anesthesia Postprocedure Evaluation - Jose Juan Gold MD - 10/04/2019 8:12 AM PST ANESTHESIA POSTANESTHESIA EVALUATION Mary Jo Darling 43 y.o. female 1975 [id number] Procedure(s) Left carpal tunnel release (Left Wrist) Cooperates? Yes Mental Status Performs simple tasks. Respiratory Satisfactory - Airway patent (self maintained). Cardiovascular Satisfactory - Blood pressure and heart rate acceptable Temperature Satisfactory Pain Satisfactory N/V Control Satisfactory Hydration Satisfactory - No signs of dehydration Adverse Events ADVERSE EVENTS: No adverse events Vitals Value Taken Time Temp 36.9 C (98.4 F) 10/03/2019 1:14 PM Pulse 80 10/03/2019 1:48 PM Resp 16 10/03/2019 1:45 PM BP 105/61 10/03/2019 1:46 PM Arterial Line BP Arterial Line BP 2 SpO2 96 % 10/03/2019 1:48 PM Vitals shown include unvalidated device data. Electronically signed by Jose Juan Godl MD 10/04/2019 8:12 AM [facility] Jose Juan Gold MD at 2019 8:12 AM PSTAnesthesia Preprocedure Evaluation - Jose Juan Gold MD - 10/03/2019 10:57 A M PST ANESTHESIA PREANESTHESIA EVALUATION Mary Jo Darling 43 y.o. female 1975 [id number] Procedure(s): Left carpal tunnel release (Left Wrist) Medical,anesthesia, drug, allergy histories reviewed, NPO status verified. Labs reviewed. Review of Systems / Med History Anesthesia History No anesthesia complications except where noted below. Cardiovascular Negative except where noted below. . Pulmonary Negative except where noted below. Endocrine (+) obesity: BMI (30-39) Psychology (+) psychiatric history of anxiety and depression. Physical Exam Airway MP II, TM >3 FB, Mouth opening >2 FB. Neck: full ROM, extends >30 degrees. Jaw protrus ion normal. Facial hair present: No Dental grossly normal except where noted below. CV Rhythm regular. Rate normal. (-) murmur. Pulm Clear to auscultation bilaterally. Neuro grossly normal. Anesthesia Plan ASA: 2 Type: MAC. Induction: Intravenous. Potential problems: None anticipated. Monitors: Standard ASA monitors. Postop Pain Management: Consent statement: Anesthetic plan, alternatives, risks and benefits discussed with patient. heart problems, n ausea, pain, respiratory events Consenting person understands and agrees to proceed. PARQ. Electronically Signed by: Jose Juan Gold MD ESig date/time: 10/03/2019 12:30 PM documented in this enco unter Miscellaneous Notes Anesthesia Post-op Handoff - Jose Juan Gold MD - 10/03/2019 1:16 PM PST ANESTHESIA HANDOFF NOTE Mary Jo Darling 43 y.o. female 1975 [id number] Left carpal tunnel release (Left Wrist) HANDOFF NOTE Handoff Protocol Used: post-procedure handoff checklist completed The following were completed during the transfer of care: 1. Identification of patient 2. Identification of responsible practitioner (primary service) 3. Discussion of pertinent medical history 4. Discussion of the surgical/procedure course (procedure, reason for surgery, procedure pe rformed) 5. Intraoperative anesthetic management and issues/concerns 6. Expectations/plans for the early post-procedure period 7. Opportunity for questions and acknowledgement of understanding of report from receiving team Patient Location: Phase II Condition: awake and alert Airway/O2: no supplemental O2 Multimodal analgesia: multimodal analgesia not used between 6 hours prior to anesthesia sta rt to PACU discharge Analgesics allergies?: Patient does not have documented allergies to multiple classes of an algesics The significant anesthesia concerns and VS in Epic were reviewed with the receiving team. Jose Juan Gold MD 10/03/2019 1:16 PM [facility] Jose Juan Gold MD at 2019 1:17 PM PSTdocumented in this encounter Plan of Treatment Not on filedocumented as of this encounter Visit Diagnoses Not on filedocumented in this encounter Administered Medications + + + +------+------+------+ | Medication Order | MAR | Action | Dose | Rate | Site | | | Action | Date | | | | + + + +------+------+------+ | lactated ringers (LR) infusion | Continue | 10/03/19 | | | | | at 10-100 mL/hr, Intravenous, | d by | 20 12:41 | | | | | CONTINUOUS, Starting 10/03/19 | Anesthes | PM PST | | | | | at 1100, TKO., Pre-op | ia | | | | | + + + +------+------+------+ +---------+ +--------+-------+---+ | New Bag | 10/03/19 | 1,000 | 100 | | | | 20 10:47 | mLs | mL/hr | | | | AM PST | | | | +---------+ +--------+-------+---+ +---+---+ | | | +---+---+ + +-------+ +-------+---+---+ | lidocaine (PF) 2% injection | Given | 10/03/19 | 60 mg | | | | Intravenous, PRN, Starting Wed | | 20 12:43 | | | | | 10/03/19 at 1243, Anesthesia | | PM PST | | | | | Intra-op | | | | | | + +-------+ +-------+---+---+ +---+---+ | | | +---+---+ + +-------+ +-------+---+---+ | propofol (DIPRIVAN) injection | Given | 10/03/19 | 60 mg | | | | Intravenous, PRN, Starting Wed | | 20 1:01 | | | | | 10/03/19 at 1245, Anesthesia | | PM PST | | | | | Intra-op | | | | | | + +-------+ +-------+---+---+ +-------+ +--------+---+---+ | Given | 10/03/19 | 40 mg | | | | | 20 12:49 | | | | | | PM PST | | | | +-------+ +--------+---+---+ | Given | 10/03/19 | 100 mg | | | | | 20 12:45 | | | | | | PM PST | | | | +-------+ +--------+---+---+ +---+---+ | | | +---+---+ documented in this encounter"
--- OUTSIDE RECORDS SUMMARY | ~2020-04-18 | XMS | Encounter Summary ---
Demographics + + + | Address | [address] | | | [place] [address] | + + + | Home Phone | | + + + | Preferred Language | Unknown | + + + | Marital Status | | + + + | Christian Affiliation | 1041 | + + + | Race | Unknown | + + + | Ethnic Group | Unknown | + + + Author + + + | Author | [facility] | | | and [place] | + + + | Organization | [facility] | | | and [place] | + + + | Address | Unknown | + + + | Phone | Unavailable | + + + Support + + + + + | Name | Relationship | Address | Phone | + + + + + | Tai Robb | ECON | [address] | | | | | [place] | | | | | [address] | | + + + + + Care Team Providers + +------+ + | Care Trailer Technician Name | Role | Phone | + +------+ + | Latricia Pal | PCP | | + +------+ + Reason for Visit + + + | Reason | Comments | + + + | Pre-op Exam | left carpal tunnel release dos 10/03/2019 | + + + Encounter Details +--------+---------+ + + + | Date | Type | Department | Care Team | Description | +--------+---------+ + + + | 09/26/ | Office | [facility] | Jose Alejandro Raymundo | Left carpal tunnel | | 2020 | Visit | ORTHOPEDIC SURGERY | [address] | syndrome (Primary | | | | [address] | [address] | Dx); Preoperative | | | | [place] | [place] [address] | testing | | | | [address] | [phone] | | | | | [phone] | | | +--------+---------+ + + + [...] + + + | Blood Pressure | 120/79 | 09/26/2019 1:18 PM | | | | | PST | | + + + + + | Pulse | 84 | 09/26/2019 1:18 PM | | | | | PST | | + + + + + | Temperature | 36.6 C (97.9 F) | 09/26/2019 1:18 PM | | | | | PST | | + + + + + | Respiratory Rate | 16 | 09/26/2019 1:18 PM | | | | | PST | | + + + + + | Oxygen Saturation | 98% | 09/26/2019 1:18 PM | | | | | PST | | + + + + + | Inhaled Oxygen | - | - | | | Concentration | | | | + + + + + | Weight | 80.1 kg (176 lb 9.4 | 09/26/2019 1:18 PM | | | | oz) | PST | | + + + + + | Height | 157.5 cm (5' 2") | 09/26/2019 1:18 PM | | | | | PST | | + + + + + | Body Mass Index | 32.3 | 09/26/2019 1:18 PM | | | | | PST | | + + + + + documented in this encounter Patient Instructions Patient Instructions Nancy Key RN - 09/26/2019 1:30 PM PSTPRE-OPERATIVE INSTRUCTIONS Your Surgery has been scheduled on October 03 at [facility]. Please check-in at (our office will contact you). Please note that your check-in time is not the time of your surgery. Due to possible delays, please bring something to occupy your time. REMEMBER: - NOTHING to EAT AFTER MIDNIGHT THE NIGHT PRIOR TO SURGERY! - You CAN have water up to 2 hours prior to your check in time. (ONLY WATER). - If your check-in time is before 8:00 am and you are not an early riser, we encourage you to drink a big glass of water prior to going to bed and nothing to eat or drink after midnig ht. You may have enough water to swallow your medications the morning of your surgery. - MEDICATIONS: ? TAKE (only if regularly taken in the morning): none ? STOP: ? All NSAIDs (aspirin, ibuprofen, naproxen) 5 days prior to surgery. Acetaminophen (Tylenol ) is ok to take. ? All vitamins/supplements 1 week prior to surgery ? SKIP: none - If you have a CPAP machine, please bring it with you to the hospital. - DO NOT use any lotions, colognes, perfumes, aftershaves or deodorant the morning of surge ry. Please remove all nail namibian and acrylics. - Please leave all jewelry and valuables at home. - Contact lenses must be removed prior to surgery. Please bring your eye glasses - Please note that street clothes are NOT allowed in the OR, this includes undergarments. - YOU WILL NEED SOMEONE TO DRIVE YOU HOME AFTER DISCHARGED FROM THE HOSPITAL. (A minor is n ot appropriate) - Call the office at [phone] with any questions or concerns. ? POST-OP APPOINTMENT with Dr. Raymundo on October 09 at 1:30 pm. Carpal Tunnel Syndrome Carpal tunnel syndrome is [...] not bent back when typing. You may qrgbcxt-tap-tuokrrg pain medicine to treat pain and inflammation, [...] becomes swollen or weak Date Last Reviewed: 01/17/201819992851-2932 [employer]. [address] [place] [address], [place] [address]. All righ ts reserved. This information is not intended as a substitute for professional medical care. Always follow your healthcare professional's instructions. documented in this encounter Progress Notes Jose Alejandro Raymundo MD - 09/26/2019 1:30 PM PSTFormatting of this note might be dif ferent from the original. [facility] PRE-OPERATIVE VISIT Pt. Name/Age/: Mary Jo [...] TUNNEL-RIGHT; Surgeon: Jose Alejandro Raymundo MD; Location: [facility] MAIN OR SECTION GALLBLADDER SURGERY [...] file Gets together: Not on file Attends evangelical service: Not on file Active member of [...] flexion, pillar pain, incisional pain, loss of jboss developer strength for period of time, and ne rve injury and these were discussed with the patient. All of the patient's questions were an swered Discharge Planning: Outpatient Follow-up: 2 weeks after surgery with no x-ray Portions of this report were transcribed using voice recognition software. Every effort wa s made to ensure accuracy; however, inadvertent computerized senior information developer errors may be pre sent. I appreciate the opportunity to help with the management of this patient. Jose Alejandro Raymundo MD documented in this encounter Plan of Treatment Not on filedocumented as of this encounter Visit Diagnoses + + | Diagnosis | + + | Left carpal tunnel syndrome - Primary Carpal tunnel syndrome | + + | Preoperative testing Preoperative examination, unspecified | + + documented in this encounter
--- OUTSIDE RECORDS SUMMARY | ~2020-04-18 | XMS | Encounter Summary ---
Demographics + + + | Address | [address] | | | [place] [address] | + + + | Home Phone | | + + + | Preferred Language | Unknown | + + + | Marital Status | | + + + | Jew Affiliation | 1041 | + + + | Race | Unknown | + + + | Ethnic Group | Unknown | + + + Author + + + | Author | [facility] | | | and [place] | + + + | Organization | [facility] | | | and [place] | + + + | Address | Unknown | + + + | Phone | Unavailable | + + + Support + + + + + | Name | Relationship | Address | Phone | + + + + + | Tai Darling | ECON | [address] | | | | | [place] | | | | | [address] | | + + + + + Care Team Providers + +------+ + | Care Environmental Compliance Officer Name | Role | Phone | + +------+ + | Latricia Pal | PCP | | + +------+ + Reason for Visit + +--------+ + | Reason | Onset | Comments | | | Date | | + +--------+ + | Medication Refill | 10/05/ | | | | 2020 | | + +--------+ + Encounter Details +--------+ + + + + | Date | Type | Department | Care Team | Description | +--------+ + + + + | 10/05/ | Telephone | [facility] | Jose Alejandro Raymundo | Medication Refill | | 2019 | | ORTHOPEDIC SURGERY | [address] | | | | | [address] | [address] [facility] | | | | | [place] [address] | [place] [address] | | | | | [address] | [phone] | | | | | [phone] | | | +--------+ + + + [...] Notes Telephone Encounter - Anu Christianson I House Designer - 10/05/2019 1:01 [address] PSTDr. Juana rosado got in contact with the patient and informed her of the refill. elephone Encounter - Strou se, Anu I, House Designer - 10/05/2019 11:45 AM PSTPlease advise. Thanks. el ephone Encounter - Brea Martinez - 10/05/2019 10:43 AM PSTPatient called to check statu s of refill. elephone E vinayuntjosh - Lizzie Winters - 10/05/2019 8:14 AM PSTPatient called requesting refill. Medication: hydrocodone Out in:today [facility]: [facility] [place] documented in this encou nter Plan of Treatment Not on filedocumented as of this encounter Visit Diagnoses Not on filedocumented in this encounter"
--- OUTSIDE RECORDS SUMMARY | ~2020-04-18 | XMS | Encounter Summary ---
Demographics + + + | Address | [address] | | | [place] [address] | + + + | Home Phone | | + + + | Preferred Language | Unknown | + + + | Marital Status | | + + + | Anabaptist Affiliation | 1041 | + + + | Race | Unknown | + + + | Ethnic Group | Unknown | + + + Author + + + | Author | [facility] | | | and [place] | + + + | Organization | [facility] | | | and [place] | + + + | Address | Unknown | + + + | Phone | Unavailable | + + + Support + + + + + | Name | Relationship | Address | Phone | + + + + + | Tai Darling | ECON | [address] | | | | | [place], [place] | | | | | [address] | | + + + + + Care Team Providers + +------+ + | Care Telegraphic Typewriter Operator Name | Role | Phone | + +------+ + | Wayne Cunha DO | PCP | | + +------+ + Encounter Details +--------+ + + + + | Date | Type | Department | Care Team | Description | +--------+ + + + + | 07/04/ | Episode | [facility] | Christy Coronado, | | | 2018 | Changes | ORTHOPEDIC SURGERY | [address] | | | | | [place] | | | | | | [place] | | | | | | [address] | | | | | | [phone] | | | +--------+ + + + [...]
--- OUTSIDE RECORDS SUMMARY | ~2020-04-18 | XMS | Encounter Summary ---
Demographics + + + | Address | [address] | | | [place] [address] | + + + | Home Phone [...] | Author | [facility] | | | and [place] | + + + | Organization | [facility] | | | and [place] | + + + | Address | Unknown | + + + | Phone | Unavailable | + + + Support + + + + + | Name | Relationship | Address | Phone | + + + + + | Tai Darling | ECON | [address] | | | | | [place] | | | | | [address] | | + + + + + Care Team Providers + +------+ + | Care Fashion Consultant Name | Role | Phone | + +------+ + | Wayne Cunha DO | PCP | | + +------+ + Reason for Visit +--------+--------+ + | Reason | Onset | Comments | | | Date | | +--------+--------+ + | Other | 06/13/ | | | | 2017 | | +--------+--------+ + Encounter Details +--------+ + + + + | Date | Type | Department | Care Team | Description | +--------+ + + + + | 06/13/ | Telephone | [facility] | Jose Alejandro Raymundo | Other | | 2017 | | ORTHOPEDIC SURGERY | [address] | | | | | [address] | [address] [facility] | | | | | [place] | [place] [address] | | | | | [address] | [phone] | | | | | [phone] | | | +--------+ + + + [...] this encounter Miscellaneous Notes Telephone Encounter - Jenise Siu - 06/15/2018 9:03 AM PDTPatient notified Electronic ally signed by Jenise Siu at 06/15/2018 9:03 AM PDTTelephone Encounter - Sue Christianson I, Reservations Clerk - 06/14/2018 8:46 AM PDTI have generated a letter stating her per- op date/ surgery date and faxed to Nadine at [phone]. Please call and inform patient that letter has been faxed. elephone Encounter - Gary Martinez - 06/13/2018 10:10 AM PDTPlease fax Letter to [phone] ATTN Nadine.Electronically s igned by Brea Martinez at 06/13/2018 10:10 AM PDTTelephone Encounter - Brea Martinez - 06/13/2018 9:31 AM PDTPatient called and left a voicemail wanting to get a letter faxed to her work at [phone]. Patient would like to get a letter stating when surgery is mian eduled for and pre op. d ocumented in this encounter Plan of Treatment Not on filedocumented as of this encounter Visit Diagnoses Not on filedocumented in this encounter"
--- OUTSIDE RECORDS SUMMARY | ~2020-04-18 | XMS | Encounter Summary ---
Demographics + + + | Address | [address] | | | [place] [address] | + + + | Home Phone | | + + + | Preferred Language | Unknown | + + + | Marital Status | | + + + | Worship Affiliation | 1041 | + + + | Race | Unknown | + + + | Ethnic Group | Unknown | + + + Author + + + | Author | [facility] | | | and [place] | + + + | Organization | [facility] | | | and [place] | + + + | Address | Unknown | + + + | Phone | Unavailable | + + + Support + + + + + | Name | Relationship | Address | Phone | + + + + + | Tai Darling | ECON | [address] | | | | | [place] | | | | | [address] | | + + + + + Care Team Providers + +------+ + | Care Credit Office Manager Name | Role | Phone | + +------+ + | Wayne Cunha DO | PCP | | + +------+ + Encounter Details +--------+ + + + + | Date | Type | Department | Care Team | Description | +--------+ + + + + | 07/14/ | Orders Only | [facility] | Jose Alejandro Raymundo | Right carpal tunnel | | 2018 | | ORTHOPEDIC SURGERY | [address] | syndrome (Primary | | | | [address] [place] | [address] | Dx) | | | | [place] | [place] [address] | | | | | [address] | [phone] | | | | | [phone] | | | +--------+ + + + [...]
--- OUTSIDE RECORDS SUMMARY | ~2020-04-18 | XMS | Encounter Summary ---
Demographics + + + | Address | [address] | | | [place] [address] | + + + | Home Phone [...] Author | [facility] | | | and [place] | + + + | Organization | [facility] | | | and [place] | + + + | Address | Unknown | + + + | Phone | Unavailable | + + + Support + + + + + | Name | Relationship | Address | Phone | + + + + + | Tai Robb | ECON | [address] | | | | | [place] | | | | | [address] | | + + + + + Care Team Providers + +------+ + | Care Registration Clerk Name | Role | Phone | + +------+ + | Wayne Cunha PCP | | + +------+ + Reason for Visit + + + | Reason | Comments | + + + | Pre-op Exam | right carpal tunnel release dos 07/11/18 | + + + | Wrist Pain | | + + + Encounter Details +--------+---------+ + + + | Date | Type | Department | Care Team | Description | +--------+---------+ + + + | 07/04/ | Office | [facility] | Jose Alejandro Raymundo | Right carpal tunnel | | 2018 | Visit | ORTHOPEDIC SURGERY | MD [address] | syndrome (Primary | | | | [address] | [address] [facility] | Dx); Left carpal | | | | [address] | [place] [address] | tunnel syndrome | | | | [address] | [phone] | | | | | [phone] | | | +--------+---------+ + + + [...] + + + | Blood Pressure | 123/79 | 07/04/2018 2:14 PM | | | | | PDT | | + + + + + | Pulse | 60 | 07/04/2018 2:14 PM | | | | | PDT | | + + + + + | Temperature | 36.6 C (97.8 F) | 07/04/2018 2:14 PM | | | | | PDT | | + + + + + | Respiratory Rate | 12 | 07/04/2018 2:14 PM | | | | | PDT | | + + + + + | Oxygen Saturation | 96% | 07/04/2018 2:14 PM | | | | | PDT | | + + + + + | Inhaled Oxygen | - | - | | | Concentration | | | | + + + + + | Weight | 78.5 kg (173 lb) | 07/04/2018 2:14 PM | | | | | PDT | | + + + + + | Height | 157.5 cm (5' 2") | 07/04/2018 2:14 PM | | | | | PDT | | + + + + + | Body Mass Index | 31.64 | 07/04/2018 2:14 PM | | | | | PDT | | + + + + + documented in this encounter Patient Instructions Patient Instructions Jose Alejandro Raymundo MD - 07/04/2018 2:30 PM PDT Carpal Tunnel Syndrome Carpal tunnel syndrome is [...] not bent back when typing. You may [id number]-dlgjhbt pain medicine to treat pain and inflammation, [...] becomes swollen or weak Date Last Reviewed: 08/11/201519992070-9629 [employer] [address] [place] [address]. All righ ts reserved. This information is not intended as a substitute for professional medical care. Always follow your healthcare professional's instructions. documented in this encounter Progress Notes Jose Alejandro Raymundo MD - 07/04/2018 2:30 PM PDTFormatting of this note might be different fro m the original. [facility] PRE-OPERATIVE VISIT Pt. Name/Age/: Mary Jo Robb 42 y.o. 1975 Primary Care Physician: Wayne [...] Daily as needed for Lili n. rizatriptan (MAXALT-RADIAL DRILL PRESS OPERATOR FOR PLASTIC) 10 mg disintegrating tablet Take by mouth [...] made to ensure accuracy; however, inadvertent computerized leakage tester errors may be pre sent. I appreciate the opportunity to help with the management of this patient. Jose Alejandro Raymundo MD documented in this en counter Plan of Treatment Not on filedocumented as of this encounter Visit Diagnoses + + | Diagnosis | + + | Right carpal tunnel syndrome - Primary Carpal tunnel syndrome | + + | Left carpal tunnel syndrome Carpal tunnel syndrome | + + documented in this encounter
--- OUTSIDE RECORDS SUMMARY | ~2020-04-18 | XMS | Encounter Summary ---
Demographics + + + | Address | [address] | | | [place] [address] | + + + | Home Phone | | + + + | Preferred Language | Unknown | + + + | Marital Status | | + + + | Tenriism Affiliation | 1041 | + + + | Race | Unknown | + + + | Ethnic Group | Unknown | + + + Author + + + | Author | [facility] | | | and [place] | + + + | Organization | [facility] | | | and [place] | + + + | Address | Unknown | + + + | Phone | Unavailable | + + + Support + + + + + | Name | Relationship | Address | Phone | + + + + + | Tai Darling | ECON | [address] | | | | | [place] | | | | | [address] | | + + + + + Care Team Providers + +------+ + | Care Wrister Name | Role | Phone | + +------+ + | Wayne Cunha DO | PCP | | + +------+ + Reason for Visit +--------+--------+ + | Reason | Onset | Comments | | | Date | | +--------+--------+ + | Other | 07/18/ | | | | 2017 | | +--------+--------+ + Encounter Details +--------+ + + + + | Date | Type | Department | Care Team | Description | +--------+ + + + + | 07/18/ | Telephone | [facility] | Jose Alejandro Raymundo | Other | | 2017 | | ORTHOPEDIC SURGERY | [address] | | | | | [address] | [address] [facility] | | | | | [place] | [place] [address] | | | | | [address] | [phone] | | | | | [phone] | | | +--------+ + + + [...] this encounter Miscellaneous Notes Telephone Encounter - Brea Martinez - 07/18/2018 12:[address] Raymundo. Mitch Raymundo would like patient to came in for a nurse visit. Patient scheduled for 4:00 PM elephone Encounter - Brea Martinez - 07/18/2018 12:19 PM PDTPatient called want ing to get the wrap changed. Patient wants it lower on the arm if possible.Electronically si gned by Brea Martinez at 07/18/2018 12:22 PM PDTdocumented in this encounter Plan of Treatment Not on filedocumented as of this encounter Visit Diagnoses Not on filedocumented in this encounter"
--- OUTSIDE RECORDS SUMMARY | ~2020-04-18 | XMS | Encounter Summary ---
Demographics + + + | Address | [address] | | | [place] [address] | + + + | Home Phone | | + + + | Preferred Language | Unknown | + + + | Marital Status | | + + + | Nondenominational Affiliation | 1041 | + + + | Race | Unknown | + + + | Ethnic Group | Unknown | + + + Author + + + | Author | [facility] | | | and [place] | + + + | Organization | [facility] | | | and [place] | + + + | Address | Unknown | + + + | Phone | Unavailable | + + + Support + + + + + | Name | Relationship | Address | Phone | + + + + + | Tai Darling | ECON | [address] | | | | | [place], [place] | | | | | [address] | | + + + + + Care Team Providers + +------+ + | Care Film Printer Name | Role | Phone | + +------+ + | Wayne Cunha DO | PCP | | + +------+ + Encounter Details +--------+ + + + + | Date | Type | Department | Care Team | Description | +--------+ + + + + | 05/28/ | Episode | [facility] | Christy Coronado, | | | 2018 | Changes | ORTHOPEDIC SURGERY | Pressure Tester | | | | | [address] | | | | | | [place] | | | | | | [address] | | | | | | [phone] | | | +--------+ + + + [...]
--- OUTSIDE RECORDS SUMMARY | ~2020-04-18 | XMS | Encounter Summary ---
Demographics + + + | Address | [address] | | | [place] [address] | + + + | Home Phone | | + + + | Preferred Language | Unknown | + + + | Marital Status | | + + + | Taoism Affiliation | 1041 | + + + | Race | Unknown | + + + | Ethnic Group | Unknown | + + + Author + + + | Author | [facility] | | | and [place] | + + + | Organization | [facility] | | | and [place] | + + + | Address | Unknown | + + + | Phone | Unavailable | + + + Support + + + + + | Name | Relationship | Address | Phone | + + + + + | Tai Darling | ECON | [address] | | | | | [place] | | | | | [address] | | + + + + + Care Team Providers + +------+ + | Care Domestic Cleaner Name | Role | Phone | + +------+ + | Wayne Cunha DO | PCP | | + +------+ + Reason for Visit + +--------+ + | Reason | Onset | Comments | | | Date | | + +--------+ + | Medication Refill | 07/13/ | | | | 2018 | | + +--------+ + Encounter Details +--------+--------+ + + + | Date | Type | Department | Care Team | Description | +--------+--------+ + + + | 07/13/ | Refill | [facility] | Jose Alejandro Raymundo | Medication Refill | | 2017 | | ORTHOPEDIC SURGERY | [address] | | | | | [address] | [address] [facility] | | | | | [place] | [place] [address] | | | | | [address] | [phone] | | | | | [phone] | | | +--------+--------+ + + + Social History + +-------+ [...] this encounter Miscellaneous Notes Telephone Encounter - Mariel Reis - 07/18/2018 3:25 PM PDTPatient picked up hilario santizo with ID # [id number] EXP: 2024 elephone Encounter - Brea Martinez - 07/18/2018 12:17 PM PDTPatient notified that script ready for milk pickup driver with ID. Patients Oumar will milk pickup driver Electronically signed by Brea Martinez at 1 12:17 PM PDTTelephone Encounter - Jenise Siu - 07/14/2018 10:25 AM PDTLMVMEl ectronically signed by Jenise Siu at 07/14/2018 10:26 AM PDTTelephone Encounter - Anu Mon se, I [employer]mware Consultant - 07/14/2018 10:20 AM PDTSpoke with jenny Vann have been printed and is ready for pick-up. elephone Encounter - Anu Christianson I [employer] Consultant - 07/13/2018 9:24 AM PDTPlease advise. Thanks elephone Encounter - Jenise Siu - 07/13/2018 9:22 AM PDTPatient called requesting information about her bandages. Patient h as a few questions in regards to her bandages and when she can return to work. Patient advi sed that nurse will contact her later today or tomorrow [phone] signed by Anthony Siu at 07/13/2018 9:24 AM PDTTelephone Encounter - Jenise Siu - 07/13/2018 9:19 AM PDTPatient called requesting refill. Medication: hydrocodone Out in: 1 day Phone: [phone] Who will milk pickup driver: patient P DTdocumented in this encounter Plan of Treatment Not on filedocumented as of this encounter Visit Diagnoses Not on filedocumented in this encounter"
--- OUTSIDE RECORDS SUMMARY | ~2020-04-18 | XMS | Encounter Summary ---
Demographics + + + | Address | [address] | | | [place] [address] | + + + | Home Phone | | + + + | Preferred Language | Unknown | + + + | Marital Status | | + + + | Scientologist Affiliation | 1041 | + + + | Race | Unknown | + + + | Ethnic Group | Unknown | + + + Author + + + | Author | [facility] | | | and [place] | + + + | Organization | [facility] | | | and [place] | + + + | Address | Unknown | + + + | Phone | Unavailable | + + + Support + + + + + | Name | Relationship | Address | Phone | + + + + + | Tai Robb | ECON | [address] | | | | | [place] | | | | | [address] | | + + + + + Care Team Providers + +------+ + | Care Software Quality Assurance Engineer Name | Role | Phone | [...] [facility] | | | | | ID [address] | | [place] | | | | | MEDIAN | | [address] | | | | | N/CARPAL | | Phone: | | | | | TUNNEL SURG | | [phone] | | | | | Left carpal | | Fax: | | | | | tunnel | | [phone] | | | | | release | | | +--------+--------+ + + + + Encounter Details +--------+---------+ + + + | Date | Type | Department | Care Team | Description | +--------+---------+ + + + | 10/03/ | Surgery | [facility] | Jose Alejandro Raymundo | Left carpal tunnel | | 2020 | | [facility] | [address] | release | | | | [address] | [address] [facility] | | | | | [place] | [place] [address] | | | | | [address] | [phone] | | | | | [phone] | | | +--------+---------+ + + + [...] of Discharge: 10/03/2019 Admitting Physician: Jose Alejandro Stahl* PCP: Latricia Pal Discharging Physician: Jose Alejandro [...] appointment in about 2 weeks. Please call [phone] with any questions or concerns. - Please [...] make decisions. After being discharged from the [facility], remember not to do the following: [...] the least year was checked using the [place] Prescrip tion Monitoring Program. Decision was made to prescribe narcotics due to the patient's acute pain. No discharge procedures on file. Electronically signed by: Jose Alejandro Raymundo MD, 10/03/2019 3:28 PM [facility] documented in this encounter Discharge Instructions Instructions [...] make decisions. After being discharged from the [facility], remember not to do the following: [...] You can't be awakened Date Last Reviewed: 07/06/201619998025-9465 [employer] [address] [place] [address], [place] [address]. All righ ts reserved. This information is [...] mg by mouth | | 0 | 08/03/20 | | | 0.5 mg tablet | [...] 1 tablet by | | 0 | 05/08/20 | | | (IMITREX) 50 mg | [...] Jose Alejandro Raymundo MD, 10/03/2019 12:15 PM [facility] - 09/26/2019 1:[address] [facility] PRE-OPERATIVE VISIT Pt. 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 All of the patient's questions were an swered Discharge Planning: Outpatient Follow-up: 2 weeks after surgery with no x-ray Portions of this report were transcribed using voice recognition software. Every effort wa s made to ensure accuracy; however, inadvertent computerized home health travel pt errors may be pre sent. I appreciate [...] Tunnel Release SURGEON: Jose Alejandro Raymundo MD SUPERVISOR SHRIMP POND: None ANESTHESIA: Conscious sedation with local ESTIMATED [...] appointment in about 2 weeks. Please call [phone] with any questions or concerns. - Please [...] make decisions. After being discharged from the [facility], remember not to do the following: [...] Specific | | | | | | [place], | | | | | | POC [...] One | | | week or longer, zlhwqk-ffw-uogtn | | | use of at least [...] 1318, If ineffective | | | use Institute 10/325 if ordered. If | | | [...] +---+---+ | | | +---+---+ + +-------+ +--------+---+ + | lidocaine 1%-EPINEPHrine | Given | 10/03/19 | 20 mLs | | Surgical | | 1:100,000 injection PRN, | | 20 12:57 | | | Site | | Starting 10/03/19 at 1257, | | PM PST | | | | | Intra-op | | | | | | + +-------+ +--------+---+ + + +---+ | | | + +---+ [...] PRN, Nausea, | | | Vomiting, Starting Tue10/03/19 | | | at 1318, First line agent, | | | Post-op/Phase II | | + +---+ | | | + +---+ | ondansetron (ZOFRAN) injection | | | 4 mg 4 mg, Intravenous, EVERY 4 | | | HOURS PRN, Nausea, Vomiting, | | | Starting Tue10/03/19 at 1318, | | | Post-op/Phase II | | + +---+ | | | + +---+ documented in this encounter
--- OUTSIDE RECORDS SUMMARY | ~2020-04-18 | XMS | Encounter Summary ---
Demographics + + + | Address | [address] | | | [place] [address] | + + + | Home Phone | | + + + | Preferred Language | Unknown | + + + | Marital Status | | + + + | Judaism Affiliation | 1041 | + + + | Race | Unknown | + + + | Ethnic Group | Unknown | + + + Author + + + | Author | [facility] | | | and [place] | + + + | Organization | [facility] | | | and [place] | + + + | Address | Unknown | + + + | Phone | Unavailable | + + + Support + + + + + | Name | Relationship | Address | Phone | + + + + + | Tai Darling | ECON | [address] | | | | | [place] | | | | | [address] | | + + + + + Care Team Providers + +------+ + | Care Lift Truck Mechanic Name | Role | Phone | + +------+ + | Wayne Cunha PCP | | + +------+ + Reason for Visit + +--------+ + | Reason | Onset | Comments | | | Date | | + +--------+ + | Surgery Appointment | 07/05/ | | | | 2019 | | + +--------+ + Encounter Details +--------+ + + + + | Date | Type | Department | Care Team | Description | +--------+ + + + + | 07/05/ | Telephone | [facility] | Jose Alejandro Raymundo | Surgery Appointment | | 2018 | | ORTHOPEDIC SURGERY | [address] | | | | | [address] | [address] [facility] | | | | | [place] | [place] [address] | | | | | [address] | [phone] | | | | | [phone] | | | +--------+ + + + [...] this encounter Miscellaneous Notes Telephone Encounter - Lizzie Winters - 07/16/2019 10:38 AM PDTPATIENT SCHEDULED Electroni magi signed by Lizzie Winters at 07/16/2019 10:38 AM PDTTelephone Encounter - Mars Winters - 07/09/2019 3:27 PM PDTLeft message for patient to call office to schedule appt FOLLOW UP*LEFT CARPAL TUNNEL RELEASE DISCUSS SURGERY*NFN* elephone Encounter - Anu Christianson [facility] - 07/06/2019 10:44 AM PDTPlease schedule patient a follow up with Dr. Raymundo. It has been 6+ months since we have seen this patient. Thanks! elephone Encounter - Lizzie Winters - 06/19 3:49 PM PDTPatient called and would like to move forward with CTS surgery on the [facility]. She has [employer]. Please advise and call [phone] signed by Lizzie caraballo at 07/05/2019 3:51 PM PDTdocumented in this encounter Plan of Treatment Not on filedocumented as of this encounter Visit Diagnoses Not on filedocumented in this encounter"
--- OUTSIDE RECORDS SUMMARY | ~2020-04-18 | XMS | Encounter Summary ---
Demographics + + + | Address | [address] | | | [place] [address] | + + + | Home Phone | | + + + | Preferred Language | Unknown | + + + | Marital Status | | + + + | Mandaeism Affiliation | 1041 | + + + | Race | Unknown | + + + | Ethnic Group | Unknown | + + + Author + + + | Author | [facility] | | | and [place] | + + + | Organization | [facility] | | | and [place] | + + + | Address | Unknown | + + + | Phone | Unavailable | + + + Support + + + + + | Name | Relationship | Address | Phone | + + + + + | Tai Darling | ECON | [address] | | | | | [place] | | | | | [address] | | + + + + + Care Team Providers + +------+ + | Care Record Systems Analyst Name | Role | Phone | [...] | | | | | | | LA REVISE | | | | | | [...] + + + + | 07/11/ | Anesthesia | [facility] | Tony Eaton | | | 2018 | Event | [facility] | P, MD [address] | | | | | [address] | [address] [place] | | | | | [place] | [address] | | | | | [address] | [phone] | | | | | [phone] | | | +--------+ + + + + Anesthesia Record + + + + + | Procedure Name | Responsible | Anesthesia Start | Anesthesia Stop Time | | | Anesthesiologist | Time | | + + + + + | RELEASE LIZANDRO | Tony Eaton, | 07/11/18 4760 | 07/11/18 1643 | | TUNNEL-RIGHT (Right | MD | | | | Wrist) | | | | + + + + + +----+---+ + + | Da | T | Event | Comment | | te | i | | | | | m | | | | | e | | | +----+---+ + + | 10 | 1 | An Checkout | Pre-use anesthesia machine/equipment checkout. | | /2 | 5 | | | | 3/ | 5 | | | | 20 | 5 | | | | 18 | | | | +----+---+ + + | | 1 | | | | | 5 | | | | | 5 | | | | | 8 | | | +----+---+ + + | | 1 | An Start | Room ready, anesthesia equipment checked, essential drugs & | | | 5 | | equipment available. Patient Identity checked, anesthesia plan | | | 5 | | explained and consent obtained. Patient transported to OR, | | | 8 | | Monitors applied. Reassessment prior to anesthesia | | | | | induction/procedure. | +----+---+ + + | | 1 | An Start | | | | 5 | Data | | | | 5 | | | | | 9 | | | +----+---+ + + | | 1 | an nazario now | | | | 6 | | | | | 0 | | | | | 1 | | | +----+---+ + + | | 1 | AN | Per surgeon request | | | 6 | Antibiotic | | | | 0 | declined | | | | 2 | | | +----+---+ + + | | 1 | Block Start | | | | 6 | | | | | 0 | | | | | 5 | | | +----+---+ + + | | 1 | AN Block | | | | 6 | End | | | | 0 | | | | | 7 | | | +----+---+ + + | | 1 | Pre-Procedu | | | | 6 | ral Timeout | | | | 1 | Completed | | | | 2 | | | +----+---+ + + | | 1 | First | Begin. Pt w/o complaint | | | 6 | Inc/Proc St | | | | 1 | | | | | 6 | | | +----+---+ + + | | 1 | An Tourn | 11 min | | | 6 | Deflated | | | | 2 | | | | | 5 | | | +----+---+ + + | | 1 | an nazario now | | | | 6 | | | | | 3 | | | | | 8 | | | +----+---+ + + | | 1 | an stop | | | | 6 | data | | | | 3 | | | | | 9 | | | +----+---+ + + | | 1 | An Stop | Patient handed off to recovery nurse. | | | 4 | | | | | 3 | | | +----+---+ + + +------+ | Meds | +------+ + +--------+ | Name | Total | + +--------+ | propofol | 160 mg | + +--------+ | LR (Infusion) | 500 mL | + +--------+ + + | Name | + + [...] Removal | +--------+ + + + | Periph | 07/11/18; 1252; Left (Darin FERNANDO); | 07/11/18 1252 by | 07/11/18 1723 by | | eral | Wrist; qiqf-zem-uqsmfw catheter | Yanet Patten, | Svetlana Frederick RN | | IV | system; 20 gauge, 18 gauge, 1 09/22 | RN | | | | in length; topical anesthetic | | | | | spray applied, tolerated well; no | | | | | longer indicated, removed per | | | | | policy/procedure, catheter/device | | | | | intact; short term use; | | | | | 07/11/18; 1723 | | | +--------+ + + + | Read | 07/11/18; 1621; Right; wrist; | 07/11/18 1621 by | 07/11/18 1724 by | | only - | 07/11/18; 1724 | Hedy Dodd RN | Svetlana Frederick RN | | | | | | | Incisi | | | | | on | | | | +--------+ + + [...] encounter OR Notes Anesthesia Postprocedure Evaluation - Tony Eaton MD - 07/11/2018 4:48 PM PDTForm atting of this note might be different from the original. ANESTHESIA POSTANESTHESIA EVALUATION Mary Jo Darling 42 y.o. female 1975 [id number] Procedure(s) RELEASE CARPAL TUNNEL-RIGHT (Right Wrist) Cooperates? Yes Mental Status Performs simple tasks. Respiratory Satisfactory - Airway patent (self maintained). Cardiovascular Satisfactory - Blood pressure and heart rate acceptable Temperature Satisfactory Pain Satisfactory N/V Control Satisfactory Hydration Satisfactory - No signs of dehydration Complications None apparent Vitals: 07/11/18 1217 07/11/18 1640 BP: 116/83 (!) 98/30 Pulse: 56 85 Temp: 36.5 C (97.7 F) 36.6 C (97.9 F) Resp: 16 14 SpO2: 97% 98% Electronically signed by Tony Etaon MD 07/11/2018 16:48 [facility] nesthesia Preprocedure Evaluation - Tony Eaton MD - 2017 3:57 PM PDT ANESTHESIA PREANESTHESIA EVALUATION Mary Jo Darling 42 y.o. female 1975 [id number] Procedure(s): RELEASE CARPAL TUNNEL-RIGHT (Right Wrist) Medical history, anesthesia, medications, allergy, NPO status verified histories reviewed. Review of Systems / Med History Anesthesia History No anesthesia complications. Cardiovascular Negative except where noted below. Pulmonary Negative except where noted below. Neurology Negative except where noted below. (+) headaches, back pain Psychology Negative except where noted below. (+) anxiety Renal Negative except where noted below. Gastrointestinal/Hepatic Negative except where noted below. Endocrine Negative except where noted below. Physical Exam Airway MP II, TM >3 FB, Mouth opening >2 FB. Neck: full ROM, extends >30 degrees. Jaw protrus ion normal. CV Rhythm regular. Anesthesia Plan ASA 2 Type: MAC. Induction: Intravenous. Potential problems: None anticipated. Monitors: Standard ASA monitors. Consent statement:Anesthetic plan, alternatives, risks and benefits discussed with patient. Risks discussed included (but were not limited to): sore throat, pain, disability, perioper ative CV events, infection, muscle aches, voice injury, drug reaction, heart problems, nause a, respiratory events, . Consenting person understands and agrees to proceed. Patient Active Problem List: Right carpal tunnel syndrome Left carpal tunnel syndrome JANE (generalized anxiety disorder) . Electronically Signed by: Tony Eaton MD ESig date/time: 07/11/2018 15:57 documented in thi s encounter Plan of Treatment Not on filedocumented as of this encounter Visit Diagnoses Not on filedocumented in this encounter Administered Medications + +---------+ +------+------+------+ | Medication Order | MAR | Action | Dose | Rate | Site | | | Action | Date | | | | + +---------+ +------+------+------+ | lactated ringers (LR) infusion | New Bag | 07/11/20 | | | | | Intravenous, CONTINUOUS PRN, | | 18 3:45 | | | | | Starting 07/11/18 at 1545, | | PM PDT | | | | | Anesthesia Intra-op | | | | | | + +---------+ +------+------+------+ +---+---+ | | | +---+---+ + +-------+ +-------+---+---+ | propofol (DIPRIVAN) injection | Given | 07/11/20 | 20 mg | | | | Intravenous, PRN, Starting Tue | | 18 4:07 | | | | | 07/11/18 at 1603, Anesthesia | | PM PDT | | | | | Intra-op | | | | | | + +-------+ +-------+---+---+ +-------+ +-------+---+---+ | Given | 07/11/20 | 20 mg | | | | | 18 4:06 | | | | | | PM PDT | | | | +-------+ +-------+---+---+ | Given | 07/11/20 | 20 mg | | | | | 18 4:05 | | | | | | PM PDT | | | | +-------+ +-------+---+---+ +---+---+ | | | +---+---+ documented in this encounter"
--- OUTSIDE RECORDS SUMMARY | ~2020-04-18 | XMS | Encounter Summary ---
Demographics + + + | Address | [address] | | | [place] [address] | + + + | Home Phone | | + + + | Preferred Language | Unknown | + + + | Marital Status | | + + + | Adventism Affiliation | 1041 | + + + | Race | Unknown | + + + | Ethnic Group | Unknown | + + + Author + + + | Author | [facility] | | | and [place] | + + + | Organization | [facility] | | | and [place] | + + + | Address | Unknown | + + + | Phone | Unavailable | + + + Support + + + + + | Name | Relationship | Address | Phone | + + + + + | Tai Darling | ECON | [address] | | | | | [place] | | | | | [address] | | + + + + + Care Team Providers + +------+ + | Care Lcac Operator Name | Role | Phone | + +------+ + | Latricia Pal | PCP | | + +------+ + Reason for Visit + +--------+ + | Reason | Onset | Comments | | | Date | | + +--------+ + | Medication Refill | 10/09/ | | | | 2020 | | + +--------+ + Encounter Details +--------+--------+ + + + | Date | Type | Department | Care Team | Description | +--------+--------+ + + + | 10/09/ | Refill | [facility] | Jose Alejandro Raymundo | Medication Refill | | 2019 | | ORTHOPEDIC SURGERY | [address] | | | | | [address] | [facility] | | | | | [place] | [place] [address] | | | | | [address] | [phone] | | | | | [phone] | | | +--------+--------+ + + + [...] this encounter Miscellaneous Notes Telephone Encounter - Gisele Andrade - 10/09/2019 1:17 PM PSTPatient lvm during c h and called again to check status of medication. Please advise, thank you.Electronically si gned by Gisele Andrade at 10/09/2019 1:18 PM PSTTelephone Encounter - Anu Christianson I, Sales Facilitator - 10/09/2019 9:15 AM PSTPatient called in and stated that the medicat ion refill that you filled on Tuesday only lasted till yesterday. Patient is curious if she c an get another refill, she said Tylenol 3 would be okay. documented in this encounter Plan of Treatment Not on filedocumented as of this encounter Visit Diagnoses Not on filedocumented in this encounter"
--- OUTSIDE RECORDS SUMMARY | ~2020-04-18 | XMS | Encounter Summary ---
Demographics + + + | Address | [address] | | | [place] [address] | + + + | Home Phone | | + + + | Preferred Language | Unknown | + + + | Marital Status | | + + + | Moravian Affiliation | 1041 | + + + | Race | Unknown | + + + | Ethnic Group | Unknown | + + + Author + + + | Author | [facility] | | | and [place] | + + + | Organization | [facility] | | | and [place] | + + + | Address | Unknown | + + + | Phone | Unavailable | + + + Support + + + + + | Name | Relationship | Address | Phone | + + + + + | Tai Darling | ECON | [address] | | | | | [place] | | | | | [address] | | + + + + + Care Team Providers + +------+ + | Care Supervisor Sample Preparation Name | Role | Phone | + +------+ + | Wayne Cunha DO | PCP | | + +------+ + Reason for Visit +---------+ + | Reason | Comments | +---------+ + | Post Op | right carpal tunnel release dos 07/11/18 | +---------+ + Encounter Details +--------+---------+ + + + | Date | Type | Department | Care Team | Description | +--------+---------+ + + + | 10/03/ | Office | [facility] | Jose Alejandro Raymundo | s/p right open | | 2019 | Visit | ORTHOPEDIC SURGERY | MD [address] | carpal tunnel | | | | [address] | [address] | release DOS 07/11/18 | | | | [place] | [place] [address] | (Primary Dx) | | | | [address] | [phone] | | | | | [phone] | | | +--------+---------+ + + + [...] + + documented as of this encounter Patient Instructions Patient Instructions Jose Alejandro Raymundo MD - 10/03/2018 5:07 PM PST Carpal Tunnel Syndrome Carpal tunnel [...] not bent back when typing. You may lwogxtz-yko-hywuupr pain medicine to treat pain and inflammation, [...] becomes swollen or weak Date Last Reviewed: 08/11/201519997993-7784 [employer]. [address] [place] [address], [place] [address]. All righ ts reserved. This information is not intended as a substitute for professional medical care. Always follow your healthcare professional's instructions. documented in this encounter Progress Notes Jose Alejandro Raymundo MD - 10/03/2018 4:15 PM PSTFormatting of this note might be different fro m the original. [facility] POST-OPERATIVE VISIT Pt. Name/Age/: Mary Jo Darling 42 y.o. 1975 Primary Care Physician: Wayne Cunha 1. s/p right open carpal tunnel release DOS 07/11/18 Chief Complaint/Reason for Visit: Post Op (right carpal tunnel release dos 07/11/18) History of Present Illness: The patient is a pleasant 42 y.o. female who presents for a post-operative visit. Since the surgery, the patient has been doing better. Her numbness and tingling have resolved. Her pain has resolved. She has some stiffness in the wrist which she is not terribly fond of. Otherwise she feels like she is doing well overall. Physical Examination: There were no vitals taken for this visit. General: Alert, oriented, no acute distress HEENT: [...] the thumb to the small fin jorge. Her incision is clean, dry, and intact. Diagnostic Studies: Imaging No new imaging Labs- No results found for: NA, [...] after the above surgery. At this point, she may work as tolerated. She may lift as tolerated with the hand. She has had no interval complications other than the stiffness. I would have her co ntinue to work on trying to move the wrist up and down to try to work out the stiffness. Follow-up: 2 months with no x-ray Portions of this report were transcribed using voice recognition software. Every effort wa s made to ensure accuracy; however, inadvertent computerized tank calibrator errors may be pre sent. I appreciate [...]
--- OUTSIDE RECORDS SUMMARY | ~2020-04-18 | XMS | Encounter Summary ---
Demographics + + + | Address | [address] | | | [place] [address] | + + + | Home Phone | | + + + | Preferred Language | Unknown | + + + | Marital Status | | + + + | Anabaptism Affiliation | 1041 | + + + | Race | Unknown | + + + | Ethnic Group | Unknown | + + + Author + + + | Author | [facility] | | | and [place] | + + + | Organization | [facility] | | | and [place] | + + + | Address | Unknown | + + + | Phone | Unavailable | + + + Support + + + + + | Name | Relationship | Address | Phone | + + + + + | Tai Robb | ECON | [address] | | | | | [place] | | | | | [address] | | + + + + + Care Team Providers + +------+ + | Care Learning Center Coordinator Name | Role | Phone | + +------+ + | Wayne Cunha DO | PCP | | + +------+ + Reason for Visit + + + | Reason | Comments | + + + | New Patient | bilateral carpal tunnel onset 2 years | + + + Evaluate & Treat (Routine) +--------+ + + + + + | Status | Reason | Specialty | Diagnoses / | Referred By | Referred To | | | | | Procedures | Contact | Contact | +--------+ + + + + + | Closed | Specialty | Orthopedic | Diagnoses | [facility], | [facility] | | Services | Surgery | Bilateral | Joshua Magaña MD | Orthopedic | | | Required | | carpal | [address] | | | | | tunnel | [address] | [address] | | | | | syndrome | [place], | [place], | | | | | Procedures | [place] [address] | [place] [address] | | | | | 05/24>PEND | Phone: | Phone: | | | | | Y AUTH | [phone] | [phone] | | | | | | Fax: | Fax: | | | | | | [phone] | [phone] | +--------+ + + + + + Encounter Details +--------+---------+ + + + | Date | Type | Department | Care Team | Description | +--------+---------+ + + + | 05/18/ | Office | [facility] | Joshua Dowell, | Bilateral carpal | | 2018 | Visit | ORTHOPEDIC SURGERY | [address] | tunnel syndrome | | | | [address] | [place], [place] | (Primary Dx) | | | | [place], [place] | [id number] | | | | | [address] | | | | | | [phone] | Jose Alejandro Raymundo | | | | | | MD [address] | | | | | | [address] | | | | | | [place] [address] | | | | | | [phone] | | | | | | | [...] Patient Instructions Jose Alejandro Raymundo MD - 05/18/2018 4:00 PM PDT Carpal Tunnel Syndrome Carpal tunnel [...] not bent back when typing. You may qgjsqna-dym-qwumjue pain medicine to treat pain and inflammation, [...] becomes swollen or weak Date Last Reviewed: 08/11/201519994040-0068 [employer]. [address] [place] [address], [place] [address]. All righ ts reserved. This information is not intended as a substitute for professional medical care. Always follow your healthcare professional's instructions. documented in this encounter Progress Notes Jose Alejandro Raymundo MD - 05/18/2018 4:00 PM PDTFormatting of this note might be different fro m the original. [facility] HISTORY AND PHYSICAL EXAMINATION Pt. Name/Age/: Mary Jo Robb 42 y.o. 1975 Primary Care Physician: Wayne Cunha Chief Complaint/Reason for Visit: New Patient (bilateral carpal tunnel onset 2 years ) History of Present Illness: The patient is a pleasant 42 y.o. female who presents with bilateral wrist and hand pain. She localizes the pain to the thumb, index, and middle fingers bilaterally. She states it i s been going on for about 2 years. Her right side bothers her more than her left. Using a keyboard and typing make her pain worse. Of note, she works in [employer] and has to d o a lot of this. In general, using her hands at work make her pain worse and she reports pa in at night when she sleeps. She has tried wearing a wrist brace on her right wrist at nigh t which does help. She has additionally tried icy hot and heating pads. She takes over-the -counter ibuprofen which gives her some relief and takes the edge off but is not sufficient. She has had no steroid injections. She thinks that her left wrist and hand are about 3-4 out of 10 and her right hand and wrist are about a 4-5 out of 10. Her pain is getting worse over time. She is not able to do her normal daily activities. She has never used tobacco. Past Medical History: Past Medical History: Diagnosis [...] Dispense Refill ALPRAZolam (XANAX) 0.5 mg tablet ibuprofen (ADVIL,MOTRIN) 600 MG tablet Take 600 mg by mouth. propranolol (INDERAL) 20 MG tablet rizatriptan (MAXALT-SENIOR CYTOGENETIC TECHNOLOGIST) 10 mg disintegrating tablet traZODone (DESYREL) 100 mg tablet Take 200-300 mg by mouth nightly as needed for Insomn ia. valACYclovir (VALTREX) 500 mg tablet No current facility-administered medications for this visit. [...] Blood clots Urinary Tract: [] Painful urination [] Kidney Stones [] Any urine leakage [] Weak urine stream [] Night urination [] Urine infections [] Bedwetting [] Blood in urine Ear/Nose/Throat: [] Frequent Colds [] Sinus Disease [] Nose obstruction [] Sneezing Spells [] Change in taste [] Artificial teeth [] Ears ringing [] Ear pain [] Hearing loss [] Teeth problems [] Hoarseness [] Neck swelling [] Sore throat [] Congestion [] Nosebleeds [] Nasal allergies Gastrointestinal: [] Abdominal pain [] Heartburn [] Blood from rectum [] Colitis [] Gallbladder problems [] Troubl e swallowing [] Bloated stomach [] Change in stools [] Vomiting blood [] Nausea [] Hemorrhoids [] Jaundice [ ] Hepatitis [] Diarrhea [x] Constipation [] Diverticulitis Musculoskeletal: [] Physical handicaps [] Back or shoulder pain []Rheumatoid disease [] Osteoarthritis [] Joint pain [] Joint swelling []Gout [] Leg cramps at night Skin: [] Skin rashes [] Itching/Burning [] Skin bruises easil y [] Artificial tanning [] Skin cancer [] Hair loss [] Changes in moles Psychiatric: [] Depression [] Suicidal thoughts [] Sleep pattern changes [] Appetite changes [] Recent counseling [x] Nervousness/anxiety [] Physical violence [] Marital problems Neurological: [x] Headaches [] Seizures [] Stroke/TIA [] Faintness [] Tremors [x] Numbness [] Dizziness [] Changes in handwriting [] Memory loss [x] Shooting pains Endocrine: [] Thyroid [] Diabetes Systemic: []Weight loss/gain (over 10 lbs) []Fever/chills []Fatigue [x] Sleeping Difficulties [] Speech change [] Voice change Admission Weight: BMI: There is no height or weight on file to calculate BMI. Physical Examination: There were no vitals taken for this visit. General: Alert, oriented, no acute distress HEENT: Normocephalic, atraumatic Cardiovascular: Regular rate and rhythm Respiratory: Breathing normally at a regular rate Ortho Exam Bilateral hand exam She has equal and symmetric wrist range of motion. She has 70 of wrist extension and 70 wrist flexion bilaterally. She has 10 degrees of ulnra deviation and 20 of radial devia tion bilaterally. She has a positive Israel's compression test and a positive Tinel's test at the carpal tunn el bilaterally. She does have some numbness and tingling in the small fingers after perform ing a Tinel's of the cubital tunnel bilaterally. No real symptoms with the elbow flexion te st bilaterally. Radial pulse 2+. Sensation intact to light touch in the first dorsal webspace, and the pad of the small finger. Sensation is reduced over the pad of the index finger bilaterally. Ab le to flex and extend the thumb at the interphalangeal joint, make an "ok" sign, adduct and abduct the fingers, and oppose the thumb to the small finger. No significant thenar eminenc e wasting on either side. Diagnostic Studies: Imaging- no imaging Angwin myography and nerve conduction testing performed on 05/03/[address] dowell reviewed . It was read as having moderate median neuropathy consistent with carpal tunnel syndrome b ilaterally Labs- No results found for: NA, K, CL, CO2, ANIONGAP, GLU, BUN, CREA, GFRNONAA, CALCIUM, ALBUMIN, BILITOT, TOTALPROTEIN, AST, ALT, ALKPHOS, WBC, HGB, HCT, MCV, LABPLAT, PLT, ESR, CRP, LIPAS E, AMYLASE, PT, INR Assessment and Plan: 1. Bilateral carpal tunnel syndrome The patient is a pleasant 42 y.o. female who presents with bilateral carpal tunnel syndrome . Treatment options were discussed with the patient including non-operative treatment modali ties. Considering the nature of the patient's condition, decision was made to proceed with s urgical planning. The risks, benefits, alternatives to surgery were discussed with the aguila ent. She has already failed some nonoperative treatment. Risks including but not limited t o nerve or vessel injury were discussed with the patient. All of her questions were answere d. She would like to proceed with carpal tunnel surgery on the right first. She would like to do this in June of possible. We will work on finding a surgical date and time that w orks with her schedule. We'll see her back for a pre-operative visit before her surgery. She would like to be under general anesthesia during the operation as she is worried about bein g anxious if she were awake. Follow-up: Return in about 1 month (around 06/18/2018). with no x-ray Portions of this report were transcribed using voice recognition software. Every effort wa s made to ensure accuracy; however, inadvertent computerized a and p technician errors may be pre sent. I appreciate the opportunity to help with the management of this patient. Jose Alejandro Raymundo MD [facility] umented in this encounter Plan of Treatment Not on filedocumented as of this encounter Visit Diagnoses + + | Diagnosis | + + | Bilateral carpal tunnel syndrome - Primary Carpal tunnel syndrome | + + documented in this encounter
--- OUTSIDE RECORDS SUMMARY | ~2020-04-18 | XMS | Clinical Summary ---
Demographics + + + | Address | [address] | | | [place] [address] | + + + | Home Phone | | + + + | Preferred Language | Unknown | + + + | Marital Status | | + + + | Taoism Affiliation | 1041 | + + + | Race | Unknown | + + + | Ethnic Group | Unknown | + + + Author + + + | Author | [facility] | | | and [place] | + + + | Organization | [facility] | | | and [place] | + + + | Address | Unknown | + + + | Phone | Unavailable | + + + Support + + + + + | Name | Relationship | Address | Phone | + + + + + | Tai Darling | ECON | [address] | | | | | [place], [place] | | | | | [address] | | + + + + + Care Team Providers + +------+ + | Care Polisher Apprentice Name | Role | Phone | + +------+ + | Latricia Pal | PCP | | + +------+ + Allergies + + + + + + | Active Allergy | Reactions | Severity | Noted | Comments | | | | | Date | | + + + + + + | Cephalexin | Nausea And Vomiting, | Low | 03/07/20 | Reaction not | | | Other (See | | 16 | specified in outside | | | Comments) | | | medical records | + + + + + + | Naproxen | Anaphylaxis | High | 02/17/20 | | | | | | 18 | | + + + + + + | Sulfamethoxazole-Tri | Other (See Comments) | | 02/17/20 | Reaction not | | methoprim | | | 18 | specified in outside | | | | | | medical records | + + + + + + Medications + + + +---------+------+------+-------+ | Medication | Sig | Dispensed | Refills | Star | End | Statu | | | | | | t | Date | s | | | | | | Date | | | + + + +---------+------+------+-------+ | traZODone | Take 100 mg by mouth | | 0 | | | Activ | | (DESYREL) 100 mg | nightly as needed | | | | | e | | tablet | for Insomnia. | | | | | | + + + +---------+------+------+-------+ | ibuprofen | Take 400-600 mg by | | 0 | | | Activ | | (ADVIL,MOTRIN) 600 | mouth Daily as | | | | | e | | MG tablet | needed for Pain. | | | | | | + + + +---------+------+------+-------+ | ALPRAZolam (XANAX) | Take 0.5 mg by mouth | | 0 | 08/0 | | Activ | | 0.5 mg tablet | as needed for | | | 3/20 | | e | | | Anxiety. | | | 18 | | | + + + +---------+------+------+-------+ | valACYclovir | Take 500 mg by mouth | | 0 | 08/2 | | Activ | | (VALTREX) 500 mg | as needed. | | | 2/20 | | e | | tablet | | | | 18 | | | + + + +---------+------+------+-------+ | ondansetron | | | 0 | 08/2 | | Activ | | (ZOFRAN ODT) 8 mg | | | | 7/20 | | e | | disintegrating | | | | 19 | | | | tablet | | | | | | | + + + +---------+------+------+-------+ | SUMAtriptan | take 1 tablet by | | 0 | 08/2 | | Activ | | (IMITREX) 50 mg | mouth if needed for | | | 0/20 | | e | | tablet | headache | | | 19 | | | + + + +---------+------+------+-------+ | cyclobenzaprine | | | 0 | 12/1 | | Activ | | (FLEXERIL) 10 mg | | | | 2/20 | | e | | tablet | | | | 19 | | | + + + +---------+------+------+-------+ | | Take 1-2 tablets by | 20 | 0 | 01/2 | | Activ | | HYDROcodone-acetamin | mouth every 4 hours | tablet | | 1/20 | | e | | ophen (NORCO) 5-325 | as needed for Pain. | | | 20 | | | | mg per tablet | Exempt | | | | | | + + + +---------+------+------+-------+ | traMADol (ULTRAM) | Take 1 tablet by | 40 | 1 | 01/2 | | Activ | | 50 mg tablet | mouth EVERY 4 TO 6 | tablet | | 7/20 | | e | | | HOURS NEEDED. | | | 20 | | | | | Exempt | | | | | | + + + +---------+------+------+-------+ Active Problems + + + | Problem | Noted Date | + + + | JANE (generalized anxiety disorder) | 07/11/2018 | + + + | s/p left carpal tunnel release DOS 10/03/2019 | 07/04/2018 | + + + | s/p right open carpal tunnel release DOS 07/11/18 | 05/18/2018 | + + + Family History + + +---------+ + | Medical History | Relation | Name | Comments | + + +---------+ + | Diabetes | Father | Shawn | | | | | Moody | | + + +---------+ + | High blood pressure | Father | Shawn | | | | | Moody | | + + +---------+ + | Diabetes | Mother | Sona | | | | | Thee | | | | | Avinash | | + + +---------+ + | High blood pressure | Mother | Sona | | | | | Thee | | | | | Avinash | | + + +---------+ + | Rheum arthritis | Neg Hx | | | + + +---------+ + + +---------+--------+ + | Relation | Name | Status | Comments | + +---------+--------+ + | Father | Shawn | | | | | Moody | | | + +---------+--------+ + | Mother | Sona | | | | | Thee | | | | | Avinash | | | + +---------+--------+ + Social History + +-------+ +--------+------+ | [...] on file | | + + + Last Filed Vital Signs + + + [...] | | + + + + + Plan of Treatment + + + + + | Health Maintenance | Due Date | Last | Comments | | | | Done | | + + + + + | Hepatitis C | | | | | Screening | 5 | | | + + + + + | Med Mgmt: BUN | | | | | | 5 | | | + + + + + | Med Mgmt: Cr | | | | | | 5 | | | + + + + + | Medication | | | | | Management | 5 | | | + + + + + | Cervical Cancer | | | | | Screening (Pap) | 5 | | | + + + + + | Breast Cancer | | | | | Screening | 0 | | | + + + + + | Vaccine: Influenza | | 07/11/20 | | | (#1) | 0 | 19, | | | | | 06/28/20 | | | | | 18, | | | | | 06/30/20 | | | | | 17, | | | | | Addition | | | | | al | | | | | history | | | | | exists | | + + + + + | Vaccine: | | 01/25/20 | | | Dtap/Tdap/Td (2 - | 9 | 19 | | | Td) | | | | + + + + + Results Not on filefrom Last 3 Months Insurance + +--------+ +--------+-------+---------+--------+ | Payer | Benefi | Subscriber | Effect | Phone | Address | Type | | | t Plan | ID | kiki | | | | | | / | | Dates | | | | | | Group | | | | | | + +--------+ +--------+-------+---------+--------+ | BCBS | BCBS | [id number] | 09/19/19 | | | PPO | | | FEDERA | | 16-Pre | | | | | | L FEP | | sent | | | | + +--------+ +--------+-------+---------+--------+ | [employer] | [employer] | [id number] | | | | Indemn | | SERVICE | YELLOW | | 018-Pr | | | ity | | | HAWK | | esent | | | | + +--------+ +--------+-------+---------+--------+ + +--------+ +--------+ + + | Guarantor Name | Accoun | Relation to | Date | Phone | Billing Address | | | t Type | Patient | of | | | | | | | | | | + +--------+ +--------+ + + | Mary Jo Darling | Person | Self [birth year] | [address] | | | al/Fam | | 1976 | [phone] | [place] [address] | | | sunita | | | 6 (Home) | | + +--------+ +--------+ + + Advance Directives + + + + + | Type | Date Recorded | Patient | Explanation | | | | Medicare Insurance Specialist | | + + + + + | Power of | | | | | Draw Press Operator | | | | + + + + + | Advance | 07/11/2018 | | | | Directive | 12:02 PM | | | + + + + + + + + + + | Code Status | Date | Date | Comments | | | Activated | Inactivated | | + + + + + | Full Code | 10/03/2019 | 10/03/2019 | | | | 1:18 PM | 4:08 PM | | + + + + +
--- OUTSIDE RECORDS SUMMARY | ~2020-04-18 | XMS | Encounter Summary ---
Demographics + + + | Address | [address] | | | [place] [address] | + + + | Home Phone | | + + + | Preferred Language | Unknown | + + + | Marital Status | | + + + | Worship Affiliation | 1041 | + + + | Race | Unknown | + + + | Ethnic Group | Unknown | + + + Author + + + | Author | [facility] | | | and [place] | + + + | Organization | [facility] | | | and [place] | + + + | Address | Unknown | + + + | Phone | Unavailable | + + + Support + + + + + | Name | Relationship | Address | Phone | + + + + + | Tai Robb | ECON | [address] | | | | | [place] | | | | | [address] | | + + + + + Care Team Providers + +------+ + | Care Second Cook And Baker Name | Role | Phone | + [...] | | | | | | | [facility] | | | | | | [...] Description | +--------+---------+ + + + | 07/11/ | Surgery | [facility] | Jose Alejandro Raymundo | [facility] | | 2018 | | [facility] | MD [address] | TUNNEL-RIGHT | | | | [address] | [place] | | | | | [place] | [place] [id number] | | | | | [phone] | [phone] | | | | | [phone] | | | +--------+---------+ + + + [...] by mouth as needed for Migraine. aka: MAXALT-BILLET HEATER traZODone 100 mg tablet Take 100 mg [...] signed by: Jose Alejandro Raymundo, 07/11/2018 17:14 [facility] documented in this en counter Discharge Instructions [...] make decisions. After being discharged from the [facility], remember not to do the following: drive a car, operate machinery or power tools, dani medina alcohol, make important decisions, or do anything [...] | 0 | 12/10/19 | | | (MAXALT-BILLET HEATER) 10 mg | needed for Migraine. | | | 18 | 9 | | disintegrating | | | | | | | tablet | | | | | | + + + +---------+ + + documented as of this encounter H&P Notes Jose Alejandro Raymundo MD - 07/11/2018 3:47 PM PDTSURGICAL INTERIM HISTORY & PHYSICAL UPDATE Pt. Name/Age/: Mary Jo Robb 42 y.o. 1975 Date of admission: 07/11/2018 [...] by: Jose Alejandro Raymundo MD, 07/11/2018 15:47 [facility] Jose Alejandro Robertson MD - 07/04/2018 2:30 PM PDT [facility] PRE-OPERATIVE VISIT Pt. Name/Age/: Mary Jo Robb [...] Daily as needed for Lili n. rizatriptan (MAXALT-BILLET HEATER) 10 mg disintegrating tablet Take by mouth [...] made to ensure accuracy; however, inadvertent computerized temperature regulator errors may be pre sent. I appreciate [...] tunnel release SURGEON: Jose Alejandro Raymundo MD RELOCATION DIRECTOR: None ANESTHESIA: MAC ESTIMATED BLOOD LOSS: 5 [...] | | | Needs | | | [id number] | +---+--------+ + +------+ +---+ + | [...] | | Test, | | | [facility] | | | Urine, POC | | | CORE | | | | | | LABORATORY | | + + + + + + | Internal QC | Acceptable | Acceptable | [facility] | | | | | | [facility] | | | | | | CORE | | | | | | LABORATORY | | + + + + + + | Specific | | 1.010, 1.015, | [facility] | | | [place], | | 1.020, 1.025 | [facility] | | | POC | | | CORE | | | | | | LABORATORY | | + + + + + + | Lot Number | [id number] | | [facility] | | | | | | [facility] | | | | | | CORE | | | | | | LABORATORY | | + + + + + + | Expiration | 11/28/2019 | | [facility] | | | Date | | | [facility] | | | | | | CORE | | | | | | LABORATORY | | + + + + + + + + | Specimen | + + | Urine | + + + + + + + | Performing | Address | City/State/Zipcode | Phone Number | | Organization | | | | + + + + + | [facility] | [address] | [place] [address] | [phone] | | [facility] | | | | | LABORATORY | | | | + + + + + documented in this encounter Visit Diagnoses Not on filedocumented in this encounter Administered Medications + +--------+---------+------+------+------+ [...] +---+ | | | + +---+ + +-------+ +--------+---+ + | lidocaine 1%-EPINEPHrine | Given | 07/11/20 | 20 mLs | | Surgical | | 1:100,000 injection PRN, | | 18 4:27 | | | Site | | Starting 07/11/18 at 1627, | | PM PDT | | | | | Intra-op | | | | | | + +-------+ +--------+---+ + + +---+ | | | + +---+ | ondansetron (ZOFRAN ODT) | | | disintegrating tablet 4 mg 4 mg, | | | Oral, EVERY 6 HOURS PRN, Nausea, | | | Vomiting, Starting Tu07/11/18 | | | at 1649, Recovery/Phase I | | + +---+ | | | + +---+ documented in this encounter
[~2020-04-18 19:36] MED LIST changes: +IMITREX50 MG PO; +ULTRAM50 MG PO; +ZOFRAN4 MG PO
--- OUTSIDE RECORDS SUMMARY | 2020-04-18 19:38 | XMS ---
PreManage Notification: ZANE ROBB Security Lehr Cutter Events No recent Security Events currently on file CRITERIA MET - GWENDOLYNP CARE PROVIDERS CAMRON FOX Physician 05/09/2019-Current PHONE: Unknown ZANE GIL Obstetrics \T\ Gynecology Current PHONE: [phone] Michelle has no Care Guidelines for this patient. Alesha VISIT COUNT (12 MO.) 2 DREW Barboza TOTAL 2 NOTE: Visits indicate total known visits. ED/UCC VISIT TRACKING (12 MO.) 04/18/2020 19:36 DREW Concepcion TYPE: Emergency COMPLAINT: - ANIMAL BITE 07/15/2019 16:12 [facility] Urgent Care [facility] TYPE: Urgent Care DIAGNOSES: - Tinea corporis - Rash 05/08/2019 16:39 DREW L[facility]pez [place] TYPE: Emergency COMPLAINT: - HEADACHE, SINUS PAIN DIAGNOSES: - Allergy status to other antibiotic agents status - Headache - Anxiety disorder, unspecified - Allergy status to analgesic agent status - Migraine, unspecified, not intractable, without status migrai INPATIENT VISIT TRACKING (12 MO.) No inpatient visits to display in this time frame [email or web address]
== END 2020-04-18 20:13 | disposition home or self-care (01) ==
LOC: ED 19:36
DX: T63.481A Toxic effect of venom of other arthropod, accidental (unintentional), initial encounter (principal); F41.9 Anxiety disorder, unspecified; Z88.1 Allergy status to other antibiotic agents; Z88.6 Allergy status to analgesic agent; Z79.899 Other long term (current) drug therapy
CPT/HCPCS: 99282; J1100

== ENCOUNTER 2021-05-26 14:28 | Emergency (ER) | payer BC, OTHER ==
[~2021-05-26] VITALS: Ht 157.5 cm; Wt 79.4 kg
[~2021-05-26 14:28] MED LIST changes: +AIRBORNE GUMMI1 EACH PO; +HYDROCODON-ACE1 EA10 PO; +IBU800 MG PO; +IBUPROFEN800 MG PO; +MIRALAX119 GM PO; +RIZATRIPTAN10 M1 PO; +TRAZODONE HCL50 MG PO; +VALACYCLOVIR500 MG PO
[2021-05-26] MEDS ORDERED: EPINEPHRIN0.3 MG/0.3 IM (14:49)
[2021-05-26] MEDS ORDERED: TRAZODONE HCL100 MG PO (14:49)
== END 2021-05-26 17:07 | disposition home or self-care (01) ==
LOC: ED 14:28
DX: K59.00 Constipation, unspecified (principal); Z88.1 Allergy status to other antibiotic agents; Z88.8 Allergy status to other drugs, medicaments and biological substances; Z79.899 Other long term (current) drug therapy
CPT/HCPCS: 74022; 80053; 81001; 83690; 84703; 85025; 96374; 96375; 96376; 99284-25; J2270; J2405; J7030

== ENCOUNTER 2024-10-22 13:40 | Emergency (ER) | payer BC, OTHER ==
[~2024-10-22] VITALS: Ht 157.5 cm; Wt 92.1 kg
[~2024-10-22 13:40] MED LIST changes: +ANTACID200 MG PO; +CITROMA296 ML PO; +EPINEPHRIN0.3 MG/0.3 IM; +OMEPRAZOLE20 MG PO; +SIMETHICONE180 MG PO
[2024-10-22] MEDS ORDERED: AMITRIPTYLINE H25 MG PO (16:08)
[2024-10-22] MEDS ORDERED: SODIUM CHLORIDE 0.9% 1,000 ML IV ONE (16:30)
[2024-10-22] MEDS ORDERED: fentaNYL citrate 100 MCG/2 ML VIAL IV ONE (16:30)
[2024-10-22 16:42] LABS: BASOPHILS 1.6 % (0-2); EOSINOPHILS 3.5 % (0-6); HEMOGLOBIN 13.9 g/dL (12.0-18.0); LYMPHOCYTES 24.4 % (24-44); MCH 31.5 (27-36); MCHC 34.8 g/dl (30-36); MCV 90.6 fl (81-99); NEUTROPHILS 64.5 % (39-80); PLATELET COUNT 278 K/uL (140-440); RBC 4.41 M/ul (4.3-5.7); RDW 15.2 (10.5-15.0)
[2024-10-22 16:55] LABS: BILIRUBIN, URINE NEGATIVE (negative); BLOOD/HGB, URINE SMALL (Negative); KETONE, URINE NEGATIVE (Negative); LEUK ESTERASE, URINE MODERATE (negative); NITRITE, URINE NEGATIVE (negative)
[2024-10-22 16:56] LABS: ALBUMIN 3.6 g/dL (3.4-5.0); ALBUMIN/GLOBULIN RATIO 0.86 (1.1-2.4); ANION GAP 11.9 (7-21); BILIRUBIN, TOTAL 0.3 ng/dL (0.2-1.0); BUN/CREATININE RATIO 11.39 (6.0-28.6); CALCIUM 9.7 mg/dL (8.5-10.1); CREATININE, SERUM 0.79 mg/dL (0.55-1.02); POTASSIUM 3.9 mmol/L (3.5-5.1); PROTEIN, TOTAL 7.8 g/dL (6.4-8.2)
[2024-10-22] MEDS ORDERED: ondansetron HCL 4 MG/2 ML VIAL IV ONE (17:00)
[2024-10-22 17:03] LABS: CRYSTALS, URINE AMORPHOUS PHOSPH 2+ (0-1+); EPITHELIAL CELLS, URINE 0 /lpf (0-1+); RED BLOOD CELLS, URINE 0-1 /hpf (0-5); WHITE BLOOD CELLS, URINE 0-1 /HPF (0-5)
[2024-10-22 17:04] LABS: BACTERIA, URINE 1+ /hpf (negative); CASTS, URINE NONE SEEN \\lpf; COLLECTION TYPE, URINE CLEAN CATCH; REFLEX CULTURE, URINE No (No)
[2024-10-22 18:00] LABS: LACTIC ACID, BLOOD 0.7 mmol/L (0.4-2.0)
[2024-10-22] MEDS ORDERED: ONDANSETRON ODT8 MG PO (18:08)
[2024-10-22 18:19] VITALS: BP 120/74
== END 2024-10-22 18:20 | disposition home or self-care (01) ==
LOC: ED 13:40
PROVIDERS: Emergency Medicine
DX: R79.89 Other specified abnormal findings of blood chemistry (principal); R10.31 Right lower quadrant pain; Z98.890 Other specified postprocedural states; Z88.1 Allergy status to other antibiotic agents; Z88.8 Allergy status to other drugs, medicaments and biological substances; Z79.899 Other long term (current) drug therapy
CPT/HCPCS: 36415; 74177; 80053; 81001; 83605; 85025; 96375; 99284-25; J2405; J3010; J7030; Q9967